=== PATIENT | male | born 1950 | race Caucasian/White ===

== ENCOUNTER 2019-10-15 05:45 | Outpatient (RCR) | payer MEDICARE, SELFPAY ==
[2019-10-14 11:00] LABS: Prostate Specific Antigen < 0.02 ng/mL (0-4)
[2019-10-14 11:30] LABS: Testosterone Total 21.7 ng/dL (193-740)
[2019-10-15] MEDS: goserelin acetate 10.8 mg Implant SUBCUT (14:17)
== END 2019-10-18 23:59 | disposition home or self-care (01) ==
LOC: ONCMED 05:45
PROVIDERS: Family Provider Family Medicine; PCP Family Medicine; Visit Provider Internal Medicine Hematology & Oncology
DX: C61 Malignant neoplasm of prostate (principal); F41.8 Other specified anxiety disorders; G47.00 Insomnia, unspecified; Z79.818 Long term (current) use of other agents affecting estrogen receptors and estrogen levels; Z79.82 Long term (current) use of aspirin; Z79.02 Long term (current) use of antithrombotics/antiplatelets; Z79.899 Other long term (current) drug therapy; Z90.79 Acquired absence of other genital organ(s); Z92.3 Personal history of irradiation
CPT/HCPCS: 84153; 84403; 96372; 96402; 99214; J9202

== ENCOUNTER → 2019-10-22 10:28 | Outpatient (BNVA) | payer MEDICARE, SELFPAY | PROVIDERS: Family Provider Family Medicine; PCP Family Medicine; Visit Provider Urology | DX: C61 Malignant neoplasm of prostate (principal); K92.1 Melena | CPT/HCPCS: 81001 ==

== ENCOUNTER → 2019-12-04 09:13 | Outpatient (BNVA) | payer MEDICARE, SELFPAY | PROVIDERS: Family Provider Family Medicine; PCP Family Medicine; Visit Provider Urology | DX: C61 Malignant neoplasm of prostate (principal); N32.81 Overactive bladder | CPT/HCPCS: 81001 ==

== ENCOUNTER 2020-01-15 07:57 | Outpatient (CLI) | payer MEDICARE, SELFPAY ==
[2020-01-14 16:11] LABS: Prostate Specific Antigen < 0.02 ng/mL (0-4)
[2020-01-14 16:12] LABS: Testosterone Total 23.3 ng/dL (193-740)
== END 2020-01-15 07:58 | disposition home or self-care (01) ==
LOC: ONCMED 07:58
PROVIDERS: Family Provider Family Medicine; PCP Family Medicine; Visit Provider Internal Medicine Hematology & Oncology
DX: C61 Malignant neoplasm of prostate (principal)
CPT/HCPCS: 84153; 84403

== ENCOUNTER 2020-01-17 08:29 | Outpatient (CLI) | payer MEDICARE, SELFPAY ==
[2020-01-17] MEDS: lidocaine 1% INJ 20 mL INJECTION (09:57)
[2020-01-17] MEDS: goserelin acetate 10.8 mg Implant IM (10:03)
--- NOTE | 2020-01-17 14:50 | ONC FU_ITS ---
Dr. Mckeon follow up note Patient: Tom Perales Unit #: [id number]: 1950 Dicatated By: Andrew Mckeon M.D.Date of Visit:January 17, 2020 Telehealth Progress Note The patient has been informed that the visit may not be secure and acknowledged the information. I have explained the option of participating in a telephone or video visit during the COVID-19 public health emergency to the patient. After being given an opportunity to ask questions about and discuss this type of visit, the patient verbally consented to proceeding with the telephone/video visit. the patient understands that this service replaces an office visit and they may be billed and /or responsible for any applicable copayments History of Present Illness: Mr. Perales is a 69-year-old gentleman who was recently diagnosed with prostate cancer. On 10/19/2018 he underwent TRUSP/biopsy, 12 cores were taken, 2 cores showed [place] score 4+3 with 100% involvement. The other showed [place] score 4+4. He had follow-up bone scan done on 10/31/2018 which shows no bone metastases. At that time patient was referred to radiation oncology Dr. Keyes. He was seen in October 2018 and offered radiation therapy. Mr Perales also consulted Dr. Woo, urologist in [place] for surgical consultation and finally decided to proceed with radical prostatectomy. It was performed on 12/17/2018. The final pathology report showed adenocarcinoma, [place] score 3+4, approximately 50% of prostate gland is involved, with positive surgical margin, extracapsular extension is seen, and left seminal vesicle was involved. A left pelvic lymph node was removed and showed no evidence of metastatic disease. Pathological stage, pT3 b, N0 Mx Patient tolerated procedure well and was referred back to Dr Mckeon for postsurgical radiation and hormonal therapy. Mr Perales was seen by Dr. Kumar who started him on Casodex 50 mg by mouth daily in December 2018. Dr Kumar referred him back to the cancer center for short-term therapy with Zoladex and possible radiation therapy. s/p combined radiation therapy/ADT with Zoladex/Casodex Casodex discontinued on 10/15/2019 Came for follow-up, denies any specific complaints except off and on hot flashes and somewhat muscle wasting and decreased libido. Otherwise tolerating Zoladex well. Medications: Aspirin EC 1 (81 mg) Tablet, enteric coated Oral daily, Chondroitin Sulfate 1 (150 mg) Capsule Oral daily, Cozaar 1 (50 mg) Tablet Oral daily, Fish Oil 1 (1200 mg) Capsule Oral b.i.d., HydroCHLOROthiazide 1 (12.5 mg) Tablet Oral daily PRN, L-Lysine 1 (500 mg) Tablet Oral daily, Multivitamin Adults 50+ 1 Tablet Oral daily, Norvasc 1 (10 mg) Tablet Oral daily, Tamsulosin HCl 1 (0.4 mg) Capsule Oral daily, VESIcare 1 Tablet (of 10 mg) Oral daily, Xarelto 1 Tablet (of 20 mg) Oral daily Allergies: Cipro Review of Systems: Constitutional - Appetite is good and weight is stable. No fever, chills. Pt reports that he is still having occasional hot flashes/night sweats, but that it is improving. Energy level is fair today., ENMT - No sinus congestion/drainage. No mouth sores. No sore throat or difficulty swallowing, Hematologic/Lymphatic - Pt reports easy bruising, Respiratory - No shortness of breath. No cough. No pleuritic pain or hemoptysis, Cardiovascular - No angina pain. Positive for occasional palpitations, Gastrointestinal - No nausea or vomiting. Positive for heartburn and acid reflux. Pt states he has diarrhea. No blood in the stool or black stools, Genitourinary (M) - No dysuria or hematuria. Positive for urinary frequency. Positive for urgency. Positive for incontinence, Musculoskeletal - Pt reports occasional back pain, Neurologic - No headache or dizziness. No numbness/paresthesias or other focal neurologic symptoms, Psychiatric - Positive for anxiety, depression and insomnia. Vital Signs: Performed on January 17, 2020 08:52 Height - 73.00 in Weight - 266.4 lbs (LOW) BSA - 2.43 sq.m BMI - 35.15 (HIGH) Temperature - 97.7 F (LOW) Pulse - 99 /min Respiration - 18 /min BP - 139/93 mm(hg) O2 Sat - 100 % Pain - 0 Performance Status: 0 - Fully active, able to carry on all predisease activities without restrictions. (ECOG) Physical Examination: ENMT - denies any mouth sores, Respiratory - Lungs are clear, Cardiovascular - Regular rate and rhythm of heart, Abdomen - bowel sounds present, nontender, Extremities - no visible edema. Lab/Imaging: Test performed on Oct 14, 2019 10:16 Testosterone, Total 21.7 ng/dL PSA < 0.02 ng/mL Impression: Adenocarcinoma prostate gland status post radical prostatectomy done on 12/17/2018 Final pathology report showed [place] score 7 (3+4), Grade 2, approximately 15% of prostate gland is involved. Next The right and left apical as well as the left posterior margins are involved Extracapsular extension is seen The left seminal vesicle is involved pT3b Left pelvic lymph node excision was done which showed no evidence of metastatic disease pN0 Bone scan done on 10/31/2018 showed no evidence of osseous metastatic disease. M0 pstage III discussed with patient his disease status and treatment options. He does have high risk, stage III disease, but otherwise healthy. Adjuvant therapy with post surgery radiation therapy and ADT in neoadjuvant /concurrent/ adjuvant . He was also started on Casodex per Dr Kumar in December 2018. Plan: Discussed with patient regarding his PSA which is less than 0.02 And testosterone level which is 23.3 Clinically, patient is doing well with no signs symptom suggestive of recurrence of disease. Tolerating 3 monthly Zoladex well but with expected side effects e.g. occasionally hot flashes, muscle wasting, decreased libido. Patient was advised to maintain physical activity level and try some muscle strengthing exercises. In the meantime we'll continue with Zoladex 10.8 mg today and every 3 months, return to clinic in 3 months with PSA Signed By: Andrew Mckeon M.D. <<Signature on File>>
== END 2020-01-17 08:30 | disposition home or self-care (01) ==
PROVIDERS: Family Provider Family Medicine; PCP Family Medicine; Visit Provider Internal Medicine Hematology & Oncology
DX: C61 Malignant neoplasm of prostate (principal); Z90.79 Acquired absence of other genital organ(s); Z79.818 Long term (current) use of other agents affecting estrogen receptors and estrogen levels
CPT/HCPCS: 96372; 96402; 99214; J2001; J9202

== ENCOUNTER 2020-02-20 07:30 | Day surgery (SDC) | payer MEDICARE, SELFPAY ==
[2020-02-18 12:05] VITALS: BMI 34.9
[2020-02-20 08:08] VITALS: BP 141/80; PULSE 88; RESP 18; TEMP 36.3; O2SAT 98
[2020-02-20] MEDS: sodium chloride 0.9% 1,000 ML 30 ML IV (08:21)
--- NOTE | 2020-02-20 08:33 | ANES.PREANE2 ---
Pre-Anesthetic Assessment Pre-Anesthetic Assessment: Height/Weight: Height 1.85 m Weight 120.202 kg Temp Pulse Resp BP Pulse Ox 97.4 F L 88 18 141/80 98 02/20/20 08:08 02/20/20 08:08 02/20/20 08:08 02/20/20 08:08 02/20/20 08:08 Preop Diagnosis: constipation Proposed Procedure: Operation Date: 02/20/20 09:35 Proposed Procedures p Colonoscopy 92401 K59.09(Not Applicable) - Jj Singletary MD Last intake: Intake Last Liquid Date 02/19/20 Last Liquid Time 20:00 Last Solid Date 02/18/20 Social: Social History: No alcohol and No tobacco Exam: Pre-Anes Outpt Exam: alert, oriented x 3, clear to auscultation bilaterally and regular rate & rhythm Airway: Submandibular: WNL Cervical ROM: WNL MP: 2 Dentition: Partials (upper) History/ROS: No significant history except as noted Pulmonary: Pulmonary: VICENTE CV/HEM: CV/HEM: CAD (stent 2006) and HTN : : None reported Hepatic: Hepatic: None reported GI: GI: GERD (occ) Metabolic: Metabolic: Hyperlipidemia and Morbid obesity Musc/skel: Musc/skel: OA/DJD Neuropsych: Neuropsych: None reported Anesthetic Plan: ASA status: 3 Anesthesia: Anesthesia Evaluation and MAC Risk of > 500 ml blood loss (7ml/kg in children): No Meds/Allergies Current Medications: Current Medications Generic Name Dose Route Start Last Admin Trade Name Freq PRN Reason Stop Dose Admin Sodium Chloride 1,000 mls @ 30 ml s/hr 02/20/20 07:45 02/20/20 08:21 Sodium Chloride 0.9% IV 30 mls/hr .Q24H GM Administration PFSH Anesthesia PFSH: Medical History Follicular lymphoma Prostate cancer Urgency incontinence Urgency-frequency syndrome Surgical History History of left inguinal hernia repair Hx of prostatectomy ROBOTIC Hx of sinus surgery Hx of vasectomy Status post colonoscopy Family History Father , AT AGE 63 Cancer Mother , AT AGE 91 CAD (coronary artery disease) Stroke Cancer Denies family history of Anesthesia complication Bleeding disorder Social History Smoking and tobacco status: never smoked Alcohol intake: never Adopted: No Caregiver/support person: No Lives independently: No Household members: spouse Marital status: Current occupational status: retired History of recent travel: No Data Anesthesia Cardiac Studies: No Data to Display
--- NOTE | 2020-02-20 11:03 | W.PM.OPSUD ---
Surgery/Procedure H&P Update DATE OF PROCEDURE: February 20, 2020 DATE H&P PERFORMED: 02/14/20 H&P UPDATE INFORMATION: I have reviewed H&P completed within last 30 days, I have examined patient prior to procedure and No changes to prior documentation PREOP DIAGNOSIS: constipation PLANNED PROCEDURE: Operation Date: 02/20/20 09:35 Proposed Procedures p Colonoscopy 12633 K59.09(Not Applicable) - Jj Singletary MD
[2020-02-20 11:43] VITALS: BP 134/78; PULSE 91; RESP 10; TEMP 36.1; O2SAT 97
[2020-02-20 12:00] VITALS: BP 123/70; PULSE 88; RESP 18; O2SAT 98
== END 2020-02-20 12:08 | disposition home or self-care (01) ==
PROVIDERS: PCP Family Medicine; Visit Provider Surgery
PROC: 0DJD8ZZ Inspection of Lower Intestinal Tract, Via Natural or Artificial Opening Endoscopic (ICD-10-PCS; CPT 45378; principal; 2020-02-20 09:35)
DX: K59.09 Other constipation (principal); I25.10 Atherosclerotic heart disease of native coronary artery without angina pectoris; Z95.5 Presence of coronary angioplasty implant and graft; I10 Essential (primary) hypertension; K21.9 Gastro-esophageal reflux disease without esophagitis; M19.90 Unspecified osteoarthritis, unspecified site; E78.5 Hyperlipidemia, unspecified
CPT/HCPCS: 12345; 45378; G0121; J7030

== ENCOUNTER 2020-04-22 10:05 | Outpatient (CLI) | payer MEDICARE, SELFPAY ==
[2020-04-22 21:04] LABS: Prostate Specific Antigen 0.006 ng/mL (0-4)
== END 2020-04-22 10:06 | disposition home or self-care (01) ==
LOC: ONCMED 13:36
PROVIDERS: PCP Family Medicine; Visit Provider Internal Medicine Hematology & Oncology
DX: C61 Malignant neoplasm of prostate (principal)
CPT/HCPCS: 36415; 84153

== ENCOUNTER 2020-04-23 12:17 | Outpatient (CLI) | payer MEDICARE, SELFPAY ==
[2020-04-23] MEDS: lidocaine 1% INJ 20 mL INJECTION (13:43)
[2020-04-23] MEDS: goserelin acetate 10.8 mg Implant IM (13:53)
--- NOTE | 2020-04-24 12:43 | ONC FU_ITS ---
Dr. Mckeon follow up note Patient: Tom Perales Unit #: [id number]: 1950 Dicatated By: Andrew Mckeon M.D.Date of Visit:Apr 23, 2020 Onc Med Follow-up/Prog Note History of Present Illness: Mr. Perales is a 70 -year-old gentleman who was recently diagnosed with prostate cancer. On 10/19/2018 he underwent TRUSP/biopsy, 12 cores were taken, 2 cores showed [place] score 4+3 with 100% involvement. The other showed Rosalina score 4+4. He had follow-up bone scan done on 10/31/2018 which shows no bone metastases. At that time patient was referred to radiation oncology Dr. Keyes. He was seen in October 2018 and offered radiation therapy. Mr Perales also consulted Dr. Woo, urologist in [place] for surgical consultation and finally decided to proceed with radical prostatectomy. It was performed on 12/17/2018. The final pathology report showed adenocarcinoma, [place] score 3+4, approximately 50% of prostate gland is involved, with positive surgical margin, extracapsular extension is seen, and left seminal vesicle was involved. A left pelvic lymph node was removed and showed no evidence of metastatic disease. Pathological stage, pT3 b, N0 Mx Patient tolerated procedure well and was referred back to Dr Mckeon for postsurgical radiation and hormonal therapy. Mr Perales was seen by Dr. Kumar who started him on Casodex 50 mg by mouth daily in December 2018. Dr Kumar referred him back to the cancer center for short-term therapy with Zoladex and possible radiation therapy. s/p combined radiation therapy/ADT with Zoladex/Casodex Casodex discontinued on 10/15/2019 Came for follow-up, denies any specific complaints, no fever chills, no nausea or vomiting, no diarrhea or constipation but occasionally hot flashes otherwise tolerating Zoladex well Medications: Aspirin EC 1 (81 mg) Tablet, enteric coated Oral daily, Chondroitin Sulfate 1 (150 mg) Capsule Oral daily, Cozaar 1 (50 mg) Tablet Oral daily, Fish Oil 1 (1200 mg) Capsule Oral b.i.d., HydroCHLOROthiazide 1 (12.5 mg) Tablet Oral daily PRN, L-Lysine 1 (500 mg) Tablet Oral daily, Multivitamin Adults 50+ 1 Tablet Oral daily, Norvasc 1 (10 mg) Tablet Oral daily, VESIcare 1 Tablet (of 10 mg) Oral daily, Xarelto 1 Tablet (of 20 mg) Oral daily Allergies: Cipro Review of Systems: Constitutional - Appetite is good and weight is stable. No fever, chills. Pt reports that he is still having occasional hot flashes/night sweats, but that it is improving. Energy level is fair today., ENMT - No sinus congestion/drainage. No mouth sores. No sore throat or difficulty swallowing, Hematologic/Lymphatic - Pt reports easy bruising, Respiratory - No shortness of breath. No cough. No pleuritic pain or hemoptysis, Cardiovascular - No angina pain. Positive for occasional palpitations, Gastrointestinal - No nausea or vomiting. Positive for heartburn and acid reflux. Pt states he has diarrhea. No blood in the stool or black stools, Genitourinary (M) - No dysuria or hematuria. Positive for urinary frequency. Positive for urgency. Positive for incontinence, Musculoskeletal - Pt reports occasional back pain, Neurologic - No headache or dizziness. No numbness/paresthesias or other focal neurologic symptoms, Psychiatric - Positive for anxiety, depression and insomnia. Vital Signs: Performed on Apr 23, 2020 13:02 Height - 73.00 in Weight - 270.8 lbs (HIGH) BSA - 2.45 sq.m BMI - 35.73 (HIGH) Temperature - 97.7 F (LOW) Pulse - 110 /min (HIGH) Respiration - 20 /min BP - 129/87 mm(hg) O2 Sat - 98 % Pain - 0 Performance Status: 0 - Fully active, able to carry on all predisease activities without restrictions. (ECOG) Physical Examination: ENMT - No mouth sores, no thrush, no jaundice, Respiratory - Lungs are clear, Cardiovascular - Regular rate and rhythm of heart, Abdomen - Soft, bowel sounds present, Extremities - No visible edema. Lab/Imaging: Test performed on Jan 14, 2020 07:40 Testosterone, Total 23.3 ng/dL PSA < 0.02 ng/mL Impression: Adenocarcinoma prostate gland status post radical prostatectomy done on 12/17/2018 Final pathology report showed Ros[place] score 7 (3+4), Grade 2, approximately 15% of prostate gland is involved. Next The right and left apical as well as the left posterior margins are involved Extracapsular extension is seen The left seminal vesicle is involved pT3b Left pelvic lymph node excision was done which showed no evidence of metastatic disease pN0 Bone scan done on 10/31/2018 showed no evidence of osseous metastatic disease. M0 pstage III discussed with patient his disease status and treatment options. He does have high risk, stage III disease, but otherwise healthy. Adjuvant therapy with post surgery radiation therapy and ADT in neoadjuvant /concurrent/ adjuvant . He was also started on Casodex per Dr Kumar in December 2018. Plan: Discussed with patient regarding his labs PSA is 0.006 Clinically, patient doing well with no signs symptom suggestive of recurrence of disease, PSA still subzero, and is tolerating 3 monthly Zoladex well. We will proceed with next 3 monthly dose today and then return to clinic in 3 months. PSA and for Zoladex Signed By: Andrew Mckeon M.D. <<Signature on File>>
== END 2020-04-23 12:18 | disposition home or self-care (01) ==
LOC: ONCMED 12:19
PROVIDERS: PCP Family Medicine; Visit Provider Internal Medicine Hematology & Oncology
DX: C61 Malignant neoplasm of prostate (principal); I10 Essential (primary) hypertension; I25.10 Atherosclerotic heart disease of native coronary artery without angina pectoris; M35.3 Polymyalgia rheumatica; N41.1 Chronic prostatitis; Z79.818 Long term (current) use of other agents affecting estrogen receptors and estrogen levels
CPT/HCPCS: 96372; 96402; 99214; J9202

== ENCOUNTER 2020-05-19 07:53 | Outpatient (CLI) | payer MEDICARE, SELFPAY ==
--- NOTE | 2020-05-19 08:04 | XR_ITS ---
WS: [id number] KNEE RIGHT TECHNIQUE: 2 views of the right knee CLINICAL INFORMATION: EFFUSION RIGHT KNEE COMPARISON: None. FINDINGS: Normal anatomic alignment. No acute fractures. Hypertrophic patella. Small suprapatellar effusion. Va scular calcification. XR/XR knee RT 1-2V 84716 IMPRESSION: 1. Small suprapatellar effusion. No acute fractures. 2. Hypertrophic patella.
== END 2020-05-19 07:54 | disposition home or self-care (01) ==
LOC: RADWPI 07:57
PROVIDERS: Family Provider Family Medicine; PCP Family Medicine; Visit Provider Nurse Practitioner Family
DX: M25.461 Effusion, right knee (principal)
CPT/HCPCS: 73560

== ENCOUNTER 2020-06-16 07:42 | Outpatient (CLI) | payer MEDICARE, SELFPAY ==
--- NOTE | 2020-06-16 09:19 | ONC FU_ITS ---
Dr. Mckeon follow up note Patient: Tom Perales Unit #: [id number]: 1950 Dicatated By: Andrew Mckeon M.D.Date of Visit:Jun 16, 2020 Onc Med Follow-up/Prog Note History of Present Illness: Mr. Perales is a 70 -year-old gentleman who was recently diagnosed with prostate cancer. On 10/19/2018 he underwent TRUSP/biopsy, 12 cores were taken, 2 cores showed [place] score 4+3 with 100% involvement. The other showed Rosalina score 4+4. He had follow-up bone scan done on 10/31/2018 which shows no bone metastases. At that time patient was referred to radiation oncology Dr. Keyes. He was seen in October 2018 and offered radiation therapy. Mr Perales also consulted Dr. Woo, urologist in [place] for surgical consultation and finally decided to proceed with radical prostatectomy. It was performed on 12/17/2018. The final pathology report showed adenocarcinoma, [place] score 3+4, approximately 50% of prostate gland is involved, with positive surgical margin, extracapsular extension is seen, and left seminal vesicle was involved. A left pelvic lymph node was removed and showed no evidence of metastatic disease. Pathological stage, pT3 b, N0 Mx Patient tolerated procedure well and was referred back to Dr Mckeon for postsurgical radiation and hormonal therapy. Mr Perales was seen by Dr. Kumar who started him on Casodex 50 mg by mouth daily in December 2018. Dr Kumar referred him back to the cancer center for short-term therapy with Zoladex and possible radiation therapy. s/p combined radiation therapy/ADT with Zoladex/Casodex Casodex discontinued on 10/15/2019 Came for follow-up, complaining of bilateral knee pain and some puffiness, patient has chronic knee problem, and has been taking [id number] alternative supplements as per patient initially he had puffiness in left knee later on it resolved on his own and then switched to right knee for which he had x-ray done on May 19, 2020 which showed a small suprapatellar effusion, no acute fracture. Patient was seen by PMD earlier, now patient had a concern whether this puffiness is related to treatment or his prostate cancer. Medications: Aspirin EC 1 (81 mg) Tablet, enteric coated Oral daily, Chondroitin Sulfate 1 (150 mg) Capsule Oral daily, Cozaar 1 (50 mg) Tablet Oral daily, Fish Oil 1 (1200 mg) Capsule Oral b.i.d., HydroCHLOROthiazide 1 (12.5 mg) Tablet Oral daily PRN, L-Lysine 1 (500 mg) Tablet Oral daily, Multivitamin Adults 50+ 1 Tablet Oral daily, Norvasc 1 (10 mg) Tablet Oral daily, Xarelto 1 Tablet (of 20 mg) Oral daily Allergies: Cipro Review of Systems: Constitutional - Appetite is good and weight is stable. No fever, chills. Pt reports that he is still having occasional hot flashes/night sweats, but that it is improving. Energy level is fair today., ENMT - No sinus congestion/drainage. No mouth sores. No sore throat or difficulty swallowing, Hematologic/Lymphatic - Pt reports easy bruising, Respiratory - No shortness of breath. No cough. No pleuritic pain or hemoptysis, Cardiovascular - No angina pain. Positive for occasional palpitations, Gastrointestinal - No nausea or vomiting. Positive for heartburn and acid reflux. Pt states he has diarrhea. No blood in the stool or black stools, Genitourinary (M) - No dysuria or hematuria. Positive for urinary frequency. Positive for urgency. Positive for incontinence, Musculoskeletal - Pt reports significant knee pain, Neurologic - No headache or dizziness. No numbness/paresthesias or other focal neurologic symptoms, Psychiatric - Positive for anxiety, depression and insomnia. Vital Signs: Performed on Jun 16, 2020 08:21 Height - 73.00 in Weight - 276.6 lbs (HIGH) BSA - 2.47 sq.m BMI - 36.49 (HIGH) Temperature - 97.2 F (LOW) Pulse - 110 /min (HIGH) Respiration - 20 /min BP - 143/102 mm(hg) (HIGH) O2 Sat - 99 % Pain - 9 Performance Status: 1 - No physically strenuous activity, but ambulatory and able to carry out light or sedentary work (e.g. office work, light house work). (ECOG) Physical Examination: ENMT - No mouth sores, no thrush, no, Respiratory - Lungs are clear, Cardiovascular - Regular rate and rhythm of heart , Abdomen - Soft, bowel sounds present, Extremities - Mild puffiness in the anterior part of right knee but no overlying skin changes. Lab/Imaging: Test performed on Jan 14, 2020 07:40 Testosterone, Total 23.3 ng/dL PSA < 0.02 ng/mL Impression: Adenocarcinoma prostate gland status post radical prostatectomy done on 12/17/2018 Final pathology report showed [place] score 7 (3+4), Grade 2, approximately 15% of prostate gland is involved. Next The right and left apical as well as the left posterior margins are involved Extracapsular extension is seen The left seminal vesicle is involved pT3b Left pelvic lymph node excision was done which showed no evidence of metastatic disease pN0 Bone scan done on 10/31/2018 showed no evidence of osseous metastatic disease. M0 pstage III discussed with patient his disease status and treatment options. He does have high risk, stage III disease, but otherwise healthy. Adjuvant therapy with post surgery radiation therapy and ADT in neoadjuvant /concurrent/ adjuvant . He was also started on Casodex per Dr Kumar in December 2018. And was discontinued on October 15, 2019 Plan: Discussed with patient regarding his bilateral knee problem and right knee x-ray which was ordered by his PMD and showed small suprapatellar effusion and patient was showed that it is very unlikely due to androgen deprivation therapy or with a normal PSA and no other symptom and shifting pain make it unlikely due to prostate cancer either, his pain could be due to progressive osteoarthritis considering his body weight and history of bilateral knee issues in the past or due to damage to the cartilage or ligament, at this point will refer him to orthopedics for evaluation. In the meantime, we will continue to follow him from oncology point of view and he will return to clinic as scheduled Signed By: Andrew Mckeon M.D. <<Signature on File>>
== END 2020-06-16 07:43 | disposition home or self-care (01) ==
LOC: ONCMED 07:44
PROVIDERS: Visit Provider Internal Medicine Hematology & Oncology
DX: C61 Malignant neoplasm of prostate (principal); M25.561 Pain in right knee; M25.461 Effusion, right knee; M25.562 Pain in left knee; Z79.818 Long term (current) use of other agents affecting estrogen receptors and estrogen levels; Z92.3 Personal history of irradiation; Z92.21 Personal history of antineoplastic chemotherapy
CPT/HCPCS: 99214

== ENCOUNTER → 2020-06-17 09:36 | Outpatient (BNVA) | payer MEDICARE, SELFPAY | PROVIDERS: Visit Provider Urology | DX: N32.81 Overactive bladder (principal); C61 Malignant neoplasm of prostate | CPT/HCPCS: 81001 ==

== ENCOUNTER → 2020-07-20 07:34 | Outpatient (BNVA) | payer MEDICARE, SELFPAY | PROVIDERS: Visit Provider Nurse Practitioner Family | DX: Z11.59 Encounter for screening for other viral diseases (principal) | CPT/HCPCS: 87635 ==

== ENCOUNTER 2020-07-22 08:05 | Outpatient (CLI) | payer MEDICARE, SELFPAY ==
[2020-07-22 14:36] LABS: Prostate Specific Antigen 0.006 ng/mL (0-4)
== END 2020-07-22 08:06 | disposition home or self-care (01) ==
LOC: ONCMED 16:53
PROVIDERS: Visit Provider Internal Medicine Hematology & Oncology
DX: C61 Malignant neoplasm of prostate (principal)
CPT/HCPCS: 84153

== ENCOUNTER 2020-08-22 05:48 | Emergency (ER) | payer MEDICARE, SELFPAY ==
[2020-08-22] VITALS (9 sets, daily range): BP systolic 113–138; BP diastolic 78–97; PULSE 81–121; RESP 15–21; TEMP 36.5; O2SAT 92–99; BMI 34.2
--- NOTE | 2020-08-22 06:20 | PC.NURSE ---
Nurse at bedside placing IV line and drawing blood work.
--- NOTE | 2020-08-22 06:31 | XRR_ITS ---
PROCEDURE INFORMATION: Exam: XR Chest, 1 View Exam date and time: 08/22/2020 7:46 AM Age: 70 years old Clinical indication: Cough and dyspnea; Additional info: Dyspnea/cough TECHNIQUE: Imaging protocol: XR of the chest Views: 1 view. COMPARISON: CR Chest 1 [place] [id number] 06/11/2018 2:17 PM FINDINGS: Lungs: Unremarkable. No consolidation. Pleural space: Unremarkable. No pleural effusion. No pneumothorax. Heart/Mediastinum: The cardiac silhouette is enlarged. There is calcification of the aortic arch. Bones/joints: Unremarkable. XR/XR chest 1V portable [id number] IMPRESSION: Enlargement of the cardiac silhouette. No acute abnormality.
--- NOTE | 2020-08-22 06:32 | ECG_ITS ---
[facility] Test Date: 2020-08-22 Pat Name: Tom Perales Department: Room: Gender: Male [employer] Operator: : [id number] Requested By: Roberto Foley Order Number: [id number] Reading MD: RICK VIGIL Measurements Intervals Kaycee Rate: 79 P: CO: QRS: 52 QRSD: 118 T: 27 QT: 408 QTc: 470 Interpretive Statements ATRIAL FIBRILLATION MODERATE INTRAVENTRICULAR CONDUCTION DELAY [110+ ms QRS DURATION] ABNORMAL RHYTHM ECG Compared to ECG 08/22/2020 06:15:56 Intraventricular conduction delay now present Electronically Signed On 08-22-2020 17:26:54 [employer] by RICK VIGIL [id number]
--- NOTE | 2020-08-22 06:33 | W.ED.ARRPALP ---
HPI - Arrhythmia/Palpitations General: Chief Complaint: COVID symptoms Stated Complaint: covid+ 07/22, still dealing w/symptoms/abd swelling Time Seen by Provider: 08/22/20 05:59 History of Present Illness: HPI narrative: 70-year-old male presents emergency room complaining of just generally not feeling well he states he feels bloated just does not feel himself. He states this is gone on since he was diagnosed in early July with Covid. He is on Xarelto for atrial fibrillation. He denies any chest pain he has had some rapid heart rate and palpitations. He is not had any productive cough. He has noted some swelling in his feet. He denies any chest pain no orthopnea. Denies any recent change in his medications. He did take an unknown medication that some family from [place] shipped to him last month when he had Covid. He does have a known history of atrial fibrillation. MD complaint: rapid heart beat, skipped beats , palpitations, irregular heart beat and atrial fibrillation Associated symptoms: Reports cough, nausea and short of breath; Deny anxiety, diaphoresis, muscle cramps, paresthesias, pre-syncope, sense of impending doom, syncope or other Review of Systems Const: Denies: diaphoresis ENMT: Denies: throat pain, ear or mastoid pain, nasal discharge or nasal congestion Card: Denies: syncope or pre-syncope Resp: Denies: dyspnea, productive cough or non-productive cough GI: Reports: nausea : Denies: flank pain, dysuria, urinary frequency or urinary urgency Musc: Denies: muscle cramps Skin/Breast: Denies: rash or pruritus Psych: Denies: anxiety PFSH ED PFSH: Medical History Follicular lymphoma Osteoarthritis involving multiple joints on both sides of body Prostate cancer Urgency incontinence Urgency-frequency syndrome Surgical History History of left inguinal hernia repair Hx of prostatectomy ROBOTIC Hx of sinus surgery Hx of vasectomy Status post colonoscopy (02/20/20) normal - repeat 5 years , poor prep Family History Father , AT AGE 63 Cancer Mother , AT AGE 91 CAD (coronary artery disease) Stroke Cancer Denies family history of Anesthesia complication Bleeding disorder Social History Smoking and tobacco status: never smoked Alcohol intake: never Adopted: No Caregiver/support person: No Lives independently: No Household members: spouse Marital status: Current occupational status: retired History of recent travel: No Physical Exam Const: COMMON NORMALS: no acute distress GENERAL APPEARANCE: cooperative and comfortable ORIENTATION/CONSCIOUSNESS: Yes awake, Yes oriented to person, Yes oriented to place and Yes oriented to time HENMT: COMMON NORMALS: normocephalic, atraumatic and hearing grossly normal bilaterally HEAD & SCALP: normocephalic and atraumatic Neck/C-Spine: COMMON NORMALS: no JVD Resp: COMMON NORMALS: normal respiratory effort, No retractions, No use of accessory muscles and clear to auscultation bilaterally AUSCULTATION: clear to auscultation bilaterally Cardio: COMMON NORMALS: no JVD and No murmurs present (Cardio) RATE: tachycardic RHYTHM: abnormal rhythm irregularly irregular GI: COMMON NORMALS: Soft to palpation and No hepatosplenomegaly present AUSCULTATION: Yes normoactive bowel sounds PALPATION: Yes Soft to palpation, No Tenderness to palpation present (GI), No Guarding due to palpation present (GI) and Yes No hepatosplenomegaly present Extremity: COMMON NORMALS: normal to inspection, capillary refill normal, no clubbing, cyanosis or edema, no calf tenderness and no pedal edema Neuro: SENSORIUM/ORIENTATION: Yes oriented to person, Yes oriented to place and Yes oriented to time Skin: COMMON NORMALS: no rashes or lesions noted GENERAL SKIN EXAM: no rashes or lesions noted Course Vital Signs: Vital signs: Vital Signs Temperature 97.7 F 08/22/20 06:00 Pulse Rate 92 08/22/20 10:00 Respiratory Rate 21 H 08/22/20 10:00 Blood Pressure 116/83 08/22/20 10:00 Pulse Oximetry 97 08/22/20 10:00 MDM - Arrhythmia/Palpitations MDM Narrative: Medical decision making narrative: Rate improved after Toprol. He is in A. fib with rate poorly controlled when he first arrived. [place] tye is known and is already on Xarelto. We will decrease his Norvasc add Toprol-XL have him follow-up next week with his regular doctor. Lab Data: Labs: Lab Results 08/22/20 08/22/20 08/22/20 Range/Units 06:44 06:44 06:44 WBC 8.2 (4.0-10.0) 10^3/ uL RBC 3.93 L (4.1-5.3) 10^6/u L Hgb 10.4 L (11.7-16.6) g/dL Hct 32.9 L (42.0-52.0) % MCV 83.7 (80-94) fL MCH 26.5 L (28.0-34.0) pg MCHC 31.6 (30.0-36.0) g/dL RDW 15.4 H (12.1-15.1) % Plt Count 274 (130-400) 10^3/c mm MPV 11.3 H (7.4-10.4) fL Neut % (Auto) 77.3 % Lymph % (Auto) 14.0 % [place]ila % (Auto) 7.5 % Eos % (Auto) 0.7 % Baso % (Auto) 0.1 % Neut # (Auto) 6.31 (1.8-7.7) 10^3/u L Lymph # (Auto) 1.1 (0.8-4.8) 10^3/u L [place] # (Auto) 0.6 (0.2-0.9) 10^3/u L Eos # (Auto) 0.1 (0.0-0.8) 10^3/u L Baso # (Auto) 0.0 (0.0-0.1) 10^3/u L Nucleated RBC % (a uto) 0 % Nucleated RBCs # 0.0 /100WBC Sodium 141 (136-145) mmol/L Potassium 4.1 (3.5-5.1) mmol/L Chloride 104 (98-107) mmol/L Carbon Dioxide 26 (22-29) mmol/L Anion Gap 15.1 (5-19) BUN 23 (8-23) mg/dL Creatinine 0.9 (0.7-1.2) mg/dL GFR Calculation 83.4 L (90-130) mL/min Glucose 112 (65-115) mg/dL Calculated Osmolal ity 296 H (285-295) mOsm/k g Calcium 9.2 (8.5-10.5) mg/dL Total Bilirubin 0.4 (0.15-1.2) mg/dL AST 26 (0-40) U/L ALT 24 (0-41) U/L Alkaline Phosphata se 107 (40-130) IU/L Troponin T Baselin e 10 (0-15) ng/L Troponin T 120 Min [place] (0-15) ng/L Delta Troponin T (0-10) ABS# NT-Pro-B Natriuret Pep 2945 H (0-125) pg/mL Total Protein 6.2 L (6.6-8.7) g/dL Albumin 4.1 (3.5-5.2) g/dL Globulin 2.1 (1.3-4.6) g/dL Urine Color (Yellow) Urine Appearance (CLEAR) Urine pH (5-7) Ur Specific Gravit y (1.005-1.030) Urine Protein (Negative) Urine Glucose (UA) (Normal) Urine Ketones (Negative) Urine Blood (Negative) Urine Nitrate (Negative) Urine Bilirubin (Negative) Urine Urobilinogen (Negative) mg/dL Ur Leukocyte Idalmis ase (Negative) 08/22/20 08/22/20 Range/Units 06:52 08:50 WBC (4.0-10.0) 10^3/ uL RBC (4.1-5.3) 10^6/u L Hgb (11.7-16.6) g/dL Hct (42.0-52.0) % MCV (80-94) fL MCH (28.0-34.0) pg MCHC (30.0-36.0) g/dL RDW (12.1-15.1) % Plt Count (130-400) 10^3/c mm MPV (7.4-10.4) fL Neut % (Auto) % Lymph % (Auto) % [place] % (Auto) % Eos % (Auto) % Baso % (Auto) % Neut # (Auto) (1.8-7.7) 10^3/u L Lymph # (Auto) (0.8-4.8) 10^3/u L [place] # (Auto) (0.2-0.9) 10^3/u L Eos # (Auto) (0.0-0.8) 10^3/u L Baso # (Auto) (0.0-0.1) 10^3/u L Nucleated RBC % (a uto) % Nucleated RBCs # /100WBC Sodium (136-145) mmol/L Potassium (3.5-5.1) mmol/L Chloride (98-107) mmol/L Carbon Dioxide (22-29) mmol/L Anion Gap (5-19) BUN (8-23) mg/dL Creatinine (0.7-1.2) mg/dL GFR Calculation (90-130) mL/min Glucose (65-115) mg/dL Calculated Osmolal ity (285-295) mOsm/k g Calcium (8.5-10.5) mg/dL Total Bilirubin (0.15-1.2) mg/dL AST (0-40) U/L ALT (0-41) U/L Alkaline Phosphata se (40-130) IU/L Troponin T Baselin e (0-15) ng/L Troponin T 120 Min [place] 10.31 (0-15) ng/L Delta Troponin T 0.31 (0-10) ABS# NT-Pro-B Natriuret Pep (0-125) pg/mL Total Protein (6.6-8.7) g/dL Albumin (3.5-5.2) g/dL Globulin (1.3-4.6) g/dL Urine Color Yellow (Yellow) Urine Appearance Clear (CLEAR) Urine pH 7 (5-7) Ur Specific Gravit y 1.010 (1.005-1.030) Urine Protein Neg (Negative) Urine Glucose (UA) Norm (Normal) Urine Ketones Negative (Negative) Urine Blood Neg (Negative) Urine Nitrate Negative (Negative) Urine Bilirubin Neg (Negative) Urine Urobilinogen Norm (Negative) mg/dL Ur Leukocyte Idalmis ase Negative (Negative) Discharge Plan Discharge Patient Disposition: Home Clinical Impression: Atrial fibrillation Condition: Stable Prescriptions: New Toprol XL 50 mg tablet extended release 24 hr 50 mg PO DAILY Qty: 30 RF: 0 Changed Norvasc 10 mg tablet 5 mg PO DAILY Qty: 0 RF: 0 No Action losartan [Cozaar] 50 mg tablet 50 mg PO DAILY RF: 0 aspirin [Adult Low Dose Aspirin] 81 mg tablet,delayed release (DR/EC) 81 mg PO DAILY RF: 0 omega-3 fatty acids [Fish Oil Concentrate] 1,000 mg capsule 1,000 mg PO DAILY RF: 0 glucosamine-chondroitin 900 mg tablet 900 mg PO DAILY RF: 0 Zoladex 10.8 mg implant 10.8 mg SUBCUT DIRECTED RF: 0 bicalutamide 50 mg tablet 50 mg PO DAILY RF: 0 turmeric 400 mg capsule PO DAILY RF: 0 Myrbetriq 25 mg tablet extended release 24 hr 25 mg PO Q24H Qty: 30 RF: 12 meloxicam 15 mg tablet 15 mg PO DAILY Qty: 90 RF: 1 cholecalciferol (vitamin D3) 125 mcg (5,000 unit) capsule 125 mcg PO DAILY RF: 0 multivitamin Tablet 1 tab PO DAILY RF: 0 Xarelto 20 mg tablet 20 mg PO DAILY RF: 0 Discharge Orders: Discharge ED (Routine); Ordered 08/22/20 Ordered By: Roberto Fields Discharge Diet: Usual diet Discharge Activity: Increase activity as tolerated Activity Restrictions/Additional Instructions: Aloe up with your primary care doctor in the next 5 days to recheck blood pressure and heart rate. Coding Level of Care Code ED Drying Unit Felting Machine Operator for Mickie Fwd Exam Comprehensive
[2020-08-22 07:01] LABS: Add Urine Microscopic? NO
[2020-08-22 07:03] LABS: Basophils % 0.1 %; Eosinophils # 0.1 10^3/uL (0.0-0.8); Eosinophils % 0.7 %; Hematocrit 32.9 % (42.0-52.0); Hemoglobin 10.4 g/dL (11.7-16.6); Lymphocytes # 1.1 10^3/uL (0.8-4.8); Mean Corpuscular HGB Conc 31.6 g/dL (30.0-36.0); Mean Corpuscular Hemoglobin 26.5 pg (28.0-34.0); Mean Corpuscular Volume 83.7 fL (80-94); Mean Platelet Volume 11.3 fL (7.4-10.4); Monocytes # 0.6 10^3/uL (0.2-0.9); Monocytes % 7.5 %; Neutrophils # 6.31 10^3/uL (1.8-7.7); Neutrophils % 77.3 %; Nucleated Red Blood Cells % 0 %; Platelet Count 274 10^3/cmm (130-400); Red Blood Count 3.93 10^6/uL (4.1-5.3); Red Cell Distribution Width 15.4 % (12.1-15.1); White Blood Count 8.2 10^3/uL (4.0-10.0)
[2020-08-22] MEDS: metoprolol tartrate 1 mg/1 mL SDV 5 mL 5 MG IV (07:05)
[2020-08-22] MEDS: metoprolol tartrate 50 mg Tablet PO (07:05)
[2020-08-22 07:15] LABS: Bilirubin Urine Neg (Negative); Blood Urine Neg (Negative); Glucose Urine UA Norm (Normal); Ketones Urine Negative (Negative); Leukocyte Esterase Urine Negative (Negative); Nitrate Urine Negative (Negative); Protein Urine Neg (Negative); Urine Appearance Clear (CLEAR); Urine Color Yellow (Yellow); Urobilinogen Urine Norm (Negative); pH Urine 7 (5-7)
[2020-08-22 07:34] LABS: Troponin(5th) Baseline 10 ng/L (0-15)
[2020-08-22 07:41] LABS: Alanine Aminotransferase 24 U/L (0-41); Albumin Level 4.1 g/dL (3.5-5.2); Alkaline Phosphatase 107 IU/L (40-130); Anion Gap 15.1 (5-19); Aspartate Amino Transferase 26 U/L (0-40); Blood Urea Nitrogen 23 mg/dL (8-23); Calcium 9.2 mg/dL (8.5-10.5); Carbon Dioxide 26 mmol/L (22-29); Chloride 104 mmol/L (98-107); Creatinine Clr Calc Pharmacy 102.7462; Globulin 2.1 g/dL (1.3-4.6); Glomerular Filtration Rate 83.4 mL/min (90-130); Glucose 112 mg/dL (65-115); NT Pro B Type Natriuretic Pept 2945 pg/mL (0-125); Osmolality Calculated 296 mOsm/kg (285-295); Potassium 4.1 mmol/L (3.5-5.1); Sodium 141 mmol/L (136-145); Total Bilirubin 0.4 mg/dL (0.15-1.2); Total Protein 6.2 g/dL (6.6-8.7)
[2020-08-22 10:28] LABS: Troponin 5 2HR 10.31 ng/L (0-15); Troponin 5 2HR Delta 0.31 ABS# (0-10)
--- NOTE | 2020-08-22 12:32 | ECG_ITS ---
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1950 Requested By: Roberto Foley Order Number: [id number] Daniel MD: RICK VIGIL Measurements Intervals [place] Rate: 108 P: [place]: QRS: 112 QRSD: 113 T: 26 QT: 383 QTc: 515 Interpretive Statements ATRIAL FIBRILLATION WITH RAPID VENTRICULAR RESPONSE POSSIBLE RIGHT VENTRICULAR HYPERTROPHY [SOME/ALL OF: PROMINENT R IN V1, LATE TRANSITION, RAD, DINH, SSS] Compared to ECG 06/11/2018 14:27:53 Sinus rhythm no longer present Electronically Signed On 08-22-2020 17:28:07 SENIOR CLINICAL DATA MANAGER by RICK VIGIL [id number]
== END 2020-08-22 11:19 | disposition home or self-care (01) ==
PROVIDERS: Emergency Provider Family Medicine
DX: I48.91 Unspecified atrial fibrillation (principal); Z79.82 Long term (current) use of aspirin; Z85.46 Personal history of malignant neoplasm of prostate
CPT/HCPCS: 12345; 71045; 80053; 81003; 83880; 84484; 85025; 93005; 96374; 99283; J3490

== ENCOUNTER → 2020-09-07 11:00 | Outpatient (BNVA) | payer MEDICARE, SELFPAY | PROVIDERS: Visit Provider Emergency Medicine | DX: R60.9 Edema, unspecified (principal); I10 Essential (primary) hypertension; I48.91 Unspecified atrial fibrillation | CPT/HCPCS: 83880 ==

== ENCOUNTER 2020-09-15 01:49 | Emergency (ER) | payer MEDICARE, SELFPAY ==
[2020-09-15 01:56] VITALS: BP 133/101; PULSE 95; RESP 22; TEMP 36.6; O2SAT 97; BMI 36.8
--- NOTE | 2020-09-15 01:58 | XR_ITS ---
WS: [id number] Exam: XR chest 1V portable [id number] Date/Time of Exam: 09/15/2020 2:28 AM Reason For Exam: sob Comparison 08/22/2020. The heart is enlarged but unchanged in size. The lungs are clear and fully expanded. No pleural effus ions. The mediastinum and bony thorax are unremarkable. XR/XR chest 1V portable [id number] IMPRESSION: 1. Mild cardiac enlargement unchanged. No acute process.
--- NOTE | 2020-09-15 01:58 | ECG_ITS ---
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 Measurements Intervals [place] Rate: 93 P: [place]: QRS: 85 QRSD: 98 T: 208 QT: 391 QTc: 487 Interpretive Statements ATRIAL FIBRILLATION MODERATE T-WAVE ABNORMALITY, CONSIDER LATERAL ISCHEMIA [-0.1+ mV T WAVE IN I/aVL/V5/V6] Compared to ECG 08/22/2020 09:02:50 T-wave abnormality now present Possible ischemia now present Intraventricular conduction delay no longer present Electronically Signed On 09-15-2020 23:45:53 POSTPARTUM NURSE by Janene Gorman M.D. [email or web address]/[id number]
[2020-09-15] MEDS: FUROsemide 10 mg/mL SDV 4mL 40 MG IVP (02:04)
[2020-09-15 02:12] VITALS: BP 129/88; PULSE 97; O2SAT 97
--- NOTE | 2020-09-15 02:21 | W.ED.SOB ---
HPI - SOB/Dyspnea General: Chief Complaint: Shortness of Breath/Dyspnea Stated Complaint: SOB Time Seen by Provider: 09/15/20 01:51 Source: patient and EMS Mode of arrival: EMS Limitations: no limitations History of Present Illness: HPI Narrative: Tom is a 70-year-old male states been having increased lower extremity edema over the last week along with shortness of breath. He states shortness of breath got worse tonight. He saw his PCP a few days ago and was prescribed Lasix and has not filled the prescription. Patient here is 96% on room air. He has had no cough or fever. He had Covid 1 month ago. Denies any worsening improving factors. MD elicited complaint: shortness of breath Associated symptoms: Deny abdominal pain, chest pain, fever(s), nausea or vomiting Review of Systems Const: Denies: fever(s), chills, body aches or change in appetite Eyes: Denies: blurry vision or eye discomfort ENMT: Denies: throat pain or dental pain Card: Denies: chest pain Resp: Reports: dyspnea GI: Denies: abdominal pain, nausea, vomiting or diarrhea : Denies: dysuria Musc: Reports: extremity swelling Skin/Breast: Denies: rash Neuro: Denies: headache(s) Psych: Denies: depression Cesar/Lymph: Denies: easy bruising All/Imm: Denies: urticaria PFSH ED PFSH: Medical History Chronic kidney disease (CKD) stage G2/A1, mildly decreased glomerular filtration rate (GFR) between 60-89 mL/min/1.73 square meter and albuminuria creatinine ratio less than 30 mg/g Follicular lymphoma Osteoarthritis involving multiple joints on both sides of body Prostate cancer Urgency incontinence Urgency-frequency syndrome Surgical History History of left inguinal hernia repair Hx of prostatectomy ROBOTIC Hx of sinus surgery Hx of vasectomy Status post colonoscopy (02/20/20) normal - repeat 5 years , poor prep Family History Father , AT AGE 63 Cancer Mother , AT AGE 91 CAD (coronary artery disease) Stroke Cancer Denies family history of Anesthesia complication Bleeding disorder Social History Smoking and tobacco status: never smoked Alcohol intake: never Adopted: No Caregiver/support person: No Lives independently: No Household members: spouse Marital status: Current occupational status: retired History of recent travel: No Physical Exam Const: COMMON NORMALS: no acute distress, patient oriented x3 and healthy appearing HENMT: COMMON NORMALS: normocephalic and atraumatic HEAD & SCALP: normocephalic and atraumatic Eye: COMMON NORMALS: Equal, round and reactive pupils present and EOMs intact bilaterally PUPIL: Yes Equal, round and reactive pupils present Neck/C-Spine: COMMON NORMALS: full ROM and supple Chest: COMMONS NORMALS: normal inspection of the chest and normal palpation of entire chest wall Resp: COMMON NORMALS: normal respiratory effort, No retractions, No use of accessory muscles and clear to auscultation bilaterally AUSCULTATION: clear to auscultation bilaterally Cardio: COMMON NORMALS: regular rate, regular rhythm and No murmurs present (Cardio) RATE: regular rate RHYTHM: regular rhythm GI: COMMON NORMALS: Normal to inspection, nondistended, normoactive bowel sounds present, Soft to palpation, non-tender and no masses PALPATION: Yes Soft to palpation Extremity: COMMON NORMALS: full ROM NARRATIVE EXTREMITY EXAM: 2+edema Neuro: COMMON NORMALS: patient oriented x3, moves all extremities and no focal motor deficits Psych: COMMON NORMALS: mental status grossly normal, Normal thought process present and cooperative THOUGHT PROCESS: Normal thought process present Skin: COMMON NORMALS: no rashes or lesions noted and no wounds GENERAL SKIN EXAM: no rashes or lesions noted Course Vital Signs: Vital signs: Vital Signs Temperature 97.8 F 09/15/20 01:56 Pulse Rate 94 09/15/20 04:13 Respiratory Rate 21 H 09/15/20 04:13 Blood Pressure 121/98 09/15/20 04:13 Pulse Oximetry 98 09/15/20 04:13 MDM - SOB/Dyspnea MDM Narrative: Medical decision making narrative: Tom presents for shortness of breath likely from his congestive heart failure. CT did show pleural effusions and possible pneumonia. We will start him on doxycycline and he is to start his Lasix that was prescribed. Patient has not required any oxygen here and has been well-appearing here he is stable for discharge and is to follow-up his PCP in 3 to 5 days return to ER if worsening. He understands and agrees to plan. Lab Data: Labs: Lab Results 09/15/20 09/15/20 09/15/20 Range/Units 02:09 02:09 02:09 WBC 9.4 (4.0-10.0) 10^3/ uL RBC 4.50 (4.1-5.3) 10^6/u L Hgb 12.1 (11.7-16.6) g/dL Hct 39.7 L (42.0-52.0) % MCV 88.2 (80-94) fL MCH 26.9 L (28.0-34.0) pg MCHC 30.5 (30.0-36.0) g/dL RDW 16.7 H (12.1-15.1) % Plt Count 262 (130-400) 10^3/c mm MPV 11.7 H (7.4-10.4) fL Neut % (Auto) 75.3 % Lymph % (Auto) 17.1 % [place] % (Auto) 6.5 % Eos % (Auto) 0.6 % Baso % (Auto) 0.2 % Neut # (Auto) 7.08 (1.8-7.7) 10^3/u L Lymph # (Auto) 1.6 (0.8-4.8) 10^3/u L [place] # (Auto) 0.6 (0.2-0.9) 10^3/u L Eos # (Auto) 0.1 (0.0-0.8) 10^3/u L Baso # (Auto) 0.0 (0.0-0.1) 10^3/u L Nucleated RBC % (a uto) 0 % Nucleated RBCs # 0.0 /100WBC PT 25.20 H (12.1-14.9) SECO NDS INR 2.19 H (0.8-1.2) D-Dimer 1.04 H (0-0.59) ug/mIFE U Sodium 139 (136-145) mmol/L Potassium 4.6 (3.5-5.1) mmol/L Chloride 102 (98-107) mmol/L Carbon Dioxide 27 (22-29) mmol/L Anion Gap 14.6 (5-19) BUN 23 (8-23) mg/dL Creatinine 1.1 (0.7-1.2) mg/dL GFR Calculation 66.2 L (90-130) mL/min Glucose 139 H (65-115) mg/dL Calculated Osmolal ity 294 (285-295) mOsm/k g Calcium 9.1 (8.5-10.5) mg/dL Total Bilirubin 0.6 (0.15-1.2) mg/dL AST 34 (0-40) U/L ALT 25 (0-41) U/L Alkaline Phosphata se 104 (40-130) IU/L NT-Pro-B Natriuret Pep 6467 H (0-125) pg/mL Total Protein 6.2 L (6.6-8.7) g/dL Albumin 3.6 (3.5-5.2) g/dL Globulin 2.6 (1.3-4.6) g/dL Imaging Data^: CT Chest: Attestation: I personally reviewed and interpreted this imaging study as follows: Radiologist's impression: [address] [address] [address] Scan Report Signed Patient: Tom Perales Unit #: [id number] : 1950 Age/Sex: 70 / M ADM Date: 09/15/20 Loc: ER Room/Bed: Attending Dr: Ordering Provider/Ordering MD: Suzanna Chao MD Date of Service: 09/15/20 Procedure(s): CT angio chest PE [facility] [id number] Accession Number(s): [id number] Report Number: [id number] PROCEDURE INFORMATION: Exam: CT Angiography Chest With Contrast Exam date and time: 09/15/2020 3:14 AM Age: 70 years old Clinical indication: Dyspnea; Additional info: SOB TECHNIQUE: Imaging protocol: Computed tomographic angiography of the chest with intravenous contrast. 3D rendering (Not supervised by radiologist): MIP and/or 3D reconstructed images were created by the technologist. Radiation optimization: All CT scans at this facility use at least one of these dose optimization techniques: automated exposure control; mA and/or kV adjustment per patient size (includes targeted exams where dose is matched to clinical indication); or iterative reconstruction. Contrast material: VISI; Contrast volume: 95 ml; Contrast route: INTRAVENOUS (IV); COMPARISON: CT Chest/Abdomen/Pelvis w IV* 04/23/2018 11:28 AM RADIATION DOSE METRICS: Total DLP (mGy-cm): 651.32 FINDINGS: Pulmonary arteries: No pulmonary emboli identified. Aorta: Mild atherosclerotic calcification of the thoracic aorta. No thoracic aortic aneurysm identified. Lungs: Moderate airspace opacity (atelectasis and/or consolidation) in the right lower lobe posteriorly. Mild atelectasis in the lingula. Moderate airspace opacity (atelectasis and/or consolidation) in the left lower lobe posteriorly. Pleural space: Moderate bilateral pleural effusions (right is larger), both new since prior study. Heart: Mild cardiomegaly. Lymph nodes: Enlarged left paratracheal lymph node measuring 1.3 cm short axis on series 2, image 156. This is larger than prior study. Bones/joints: Healed fracture of the right mid clavicle. Mild degenerative changes of the thoracic spine. Soft tissues: Unremarkable. Other findings: Images of the upper abdomen were reviewed. Small amount of free fluid visualized in the perihepatic region. If additional or more detailed information is needed, an addendum can be generated on request. CT/CT angio chest PE protcl [id number] IMPRESSION: 1. No pulmonary emboli identified. 2. Moderate airspace opacity (atelectasis and/or consolidation) in the right lower lobe posteriorly. Moderate airspace opacity (atelectasis and/or consolidation) in the left lower lobe posteriorly. These findings are new since prior study. 3. Moderate bilateral pleural effusions (right is larger), both new since prior study. 4. Small amount of free fluid visualized in the perihepatic region. Radiation Dose CTDIVOL = (mGy): DLP = 651.32 (mGy-cm) EKG Data^: EKG 1: Attestation: I personally reviewed and interpreted this EKG as follows: EKG Interpretation Date: 09/15/20 EKG interpretation time: 03:08 Interpretation: afib hr [address] or t wave abnormalities qrs 98 qtc 442 Discharge Plan Discharge Patient Disposition: Home Clinical Impression: Leg edema, Community acquired pneumonia Condition: Stable Prescriptions: New doxycycline hyclate 100 mg capsule 100 mg PO BID 7 Days Qty: 14 RF: 0 No Action losartan [Cozaar] 50 mg tablet 50 mg PO DAILY RF: 0 aspirin [Adult Low Dose Aspirin] 81 mg tablet,delayed release (DR/EC) 81 mg PO DAILY RF: 0 omega-3 fatty acids [Fish Oil Concentrate] 1,000 mg capsule 1,000 mg PO DAILY RF: 0 glucosamine-chondroitin 900 mg tablet 900 mg PO DAILY RF: 0 Zoladex 10.8 mg implant 10.8 mg SUBCUT DIRECTED RF: 0 turmeric 400 mg capsule PO DAILY RF: 0 Myrbetriq 25 mg tablet extended release 24 hr 25 mg PO Q24H Qty: 30 RF: 12 meloxicam 15 mg tablet 15 mg PO DAILY Qty: 90 RF: 1 cholecalciferol (vitamin D3) 125 mcg (5,000 unit) capsule 125 mcg PO DAILY RF: 0 simvastatin 40 mg tablet 40 mg PO DAILY RF: 0 hydrochlorothiazide 25 mg tablet 25 mg PO QAM Qty: 30 RF: 1 multivitamin Tablet 1 tab PO DAILY RF: 0 Xarelto 20 mg tablet 20 mg PO DAILY RF: 0 furosemide [Lasix] 40 mg tablet 40 mg PO QAM Qty: 7 RF: 0 metoprolol tartrate 50 mg tablet 50 mg PO BID Qty: 60 RF: 0 potassium chloride 20 mEq tablet extended release 20 meq PO DAILY Qty: 7 RF: 0 Norvasc 10 mg tablet 5 mg PO DAILY Qty: 0 RF: 0 Discharge Orders: Discharge ED (Routine); Ordered 09/15/20 Ordered By: Suzanna Chao Referrals: Pablito Winslow MD [Primary Care Provider] - Discharge Diet: Advance as tolerated Discharge Activity: Resume usual activity Patient Instructions: Leg Edema (ED), Pneumonia (ED) Coding Level of Care Code ED Bss Solution Architect for Chg Fwd Exam Comprehensive
[2020-09-15 02:39] LABS: Basophils % 0.2 %; Eosinophils # 0.1 10^3/uL (0.0-0.8); Eosinophils % 0.6 %; Hematocrit 39.7 % (42.0-52.0); Hemoglobin 12.1 g/dL (11.7-16.6); Lymphocytes # 1.6 10^3/uL (0.8-4.8); Lymphocytes % 17.1 %; Mean Corpuscular HGB Conc 30.5 g/dL (30.0-36.0); Mean Corpuscular Hemoglobin 26.9 pg (28.0-34.0); Mean Corpuscular Volume 88.2 fL (80-94); Mean Platelet Volume 11.7 fL (7.4-10.4); Monocytes # 0.6 10^3/uL (0.2-0.9); Monocytes % 6.5 %; Neutrophils # 7.08 10^3/uL (1.8-7.7); Neutrophils % 75.3 %; Nucleated Red Blood Cells % 0 %; Platelet Count 262 10^3/cmm (130-400); Red Cell Distribution Width 16.7 % (12.1-15.1); White Blood Count 9.4 10^3/uL (4.0-10.0)
[2020-09-15 02:53] LABS: Alanine Aminotransferase 25 U/L (0-41); Albumin Level 3.6 g/dL (3.5-5.2); Alkaline Phosphatase 104 IU/L (40-130); Anion Gap 14.6 (5-19); Aspartate Amino Transferase 34 U/L (0-40); Blood Urea Nitrogen 23 mg/dL (8-23); Calcium 9.1 mg/dL (8.5-10.5); Carbon Dioxide 27 mmol/L (22-29); Chloride 102 mmol/L (98-107); Globulin 2.6 g/dL (1.3-4.6); Glomerular Filtration Rate 66.2 mL/min (90-130); Glucose 139 mg/dL (65-115); NT Pro B Type Natriuretic Pept 6467 pg/mL (0-125); Osmolality Calculated 294 mOsm/kg (285-295); Potassium 4.6 mmol/L (3.5-5.1); Sodium 139 mmol/L (136-145); Total Bilirubin 0.6 mg/dL (0.15-1.2); Total Protein 6.2 g/dL (6.6-8.7)
[2020-09-15 02:58] LABS: INR 2.19 (0.8-1.2)
[2020-09-15 03:01] LABS: D Dimer 1.04 ug/mIFEU (0-0.59)
[2020-09-15 03:11] VITALS: BP 118/88; PULSE 96; O2SAT 97
--- NOTE | 2020-09-15 03:12 | CTR_ITS ---
PROCEDURE INFORMATION: Exam: CT Angiography Chest With Contrast Exam date and time: 09/15/2020 3:14 AM Age: 70 years old Clinical indication: Dyspnea; Additional info: SOB TECHNIQUE: Imaging protocol: Computed tomographic angiography of the chest with intravenous contrast. 3D rendering (Not supervised by radiologist): MIP and/or 3D reconstructed images were created by the technologist. Radiation optimization: All CT scans at this facility use at least one of these dose optimization techniques: automated exposure control; mA and/or kV adjustment per patient size (includes targeted exams where dose is matched to clinical indication); or iterative reconstruction. Contrast material: VISI; Contrast volume: 95 ml; Contrast route: INTRAVENOUS (IV); COMPARISON: CT Chest/Abdomen/Pelvis w IV* 04/23/2018 11:28 AM RADIATION DOSE METRICS: Total DLP (mGy-cm): 651.32 FINDINGS: Pulmonary arteries: No pulmonary emboli identified. Aorta: Mild atherosclerotic calcification of the thoracic aorta. No thoracic aortic aneurysm identified. Lungs: Moderate airspace opacity (atelectasis and/or consolidation) in the right lower lobe posteriorly. Mild atelectasis in the lingula. Moderate airspace opacity (atelectasis and/or consolidation) in the left lower lobe posteriorly. Pleural space: Moderate bilateral pleural effusions (right is larger), both new since prior study. Heart: Mild cardiomegaly. Lymph nodes: Enlarged left paratracheal lymph node measuring 1.3 cm short axis on series 2, image 156. This is larger than prior study. Bones/joints: Healed fracture of the right mid clavicle. Mild degenerative changes of the thoracic spine. Soft tissues: Unremarkable. Other findings: Images of the upper abdomen were reviewed. Small amount of free fluid visualized in the perihepatic region. If additional or more detailed information is needed, an addendum can be generated on request. CT/CT angio chest PE protcl [id number] IMPRESSION: 1. No pulmonary emboli identified. 2. Moderate airspace opacity (atelectasis and/or consolidation) in the right lower lobe posteriorly. Moderate airspace opacity (atelectasis and/or consolidation) in the left lower lobe posteriorly. These findings are new since prior study. 3. Moderate bilateral pleural effusions (right is larger), both new since prior study. 4. Small amount of free fluid visualized in the perihepatic region. Radiation Dose CTDIVOL = (mGy): DLP = 651.32 (mGy-cm)
[2020-09-15] MEDS: iodixanol 320 mg/mL 100mL Btl IV (03:21)
[2020-09-15 04:13] VITALS: BP 121/98; PULSE 94; RESP 21; O2SAT 98
[2020-09-15 04:42] VITALS: BP 121/98; PULSE 100; RESP 21; O2SAT 96
== END 2020-09-15 04:49 | disposition home or self-care (01) ==
PROVIDERS: Emergency Provider Emergency Medicine; PCP Family Medicine Adult Medicine
DX: J18.9 Pneumonia, unspecified organism (principal); R60.0 Localized edema; Z79.82 Long term (current) use of aspirin; N18.2 Chronic kidney disease, stage 2 (mild); Z85.46 Personal history of malignant neoplasm of prostate
CPT/HCPCS: 12345; 71045; 71275; 80053; 83880; 85025; 85378; 85610; 93005; 96374; 99283; 99284; 99291; J1940; Q9967

== ENCOUNTER → 2020-09-25 13:37 | Outpatient (BNVA) | payer MEDICARE, SELFPAY | PROVIDERS: PCP Family Medicine Adult Medicine; Visit Provider Family Medicine | DX: R60.0 Localized edema (principal) | CPT/HCPCS: 80048 ==

== ENCOUNTER 2020-10-01 13:23 | Outpatient (CLI) | payer MEDICARE, SELFPAY ==
--- NOTE | 2020-10-01 15:00 | USCV_ITS ---
Tom Perales Age: 70 Gender: M : 1950 Exam Date: 10/01/2020 14:39 Ordering Phys: Genesis Dominguez DO Technologist: Eber Bess [place] [facility] [place]: CHF BP: 126 / 72 HR: 56 Rhythm: Sinus Technical Quality: Fair MEASUREMENTS (Male / Female) Normal Values 2D ECHO LV Diastolic Diameter PLAX 6.6 cm 4.2 - 5.9 / 3.9 - 5.3 cm LV Systolic Diameter PLAX 6.0 cm IVS Diastolic Thickness 1.1 cm 0.6 - 1.0 / 0.6 - 0.9 cm IVS Systolic Thickness 1.2 cm LVPW Diastolic Thickness 1.1 cm 0.6 - 1.0 / 0.6 - 0.9 cm LVPW Systolic Thickness 1.4 cm LVOT Diameter 2.2 cm LV Ejection Fraction 2D Teich 19.9 % LV Ejection Fraction MOD 2C 34.5 % LV Ejection Fraction 2C AL 33.1 % LA Diameter 5.3 cm LA Width 5.0 cm LA Height 7.0 cm RA Width 3.4 cm RA Height 6.6 cm Aorta at Sinotubular Diameter 3.0 cm M-MODE LV Diastolic Diameter MM 7.9 cm 4.2 - 5.9 / 3.9 - 5.3 cm LV Systolic Diameter MM 6.6 cm LV Ejection Fraction MM Teich 33.3 % IVS Diastolic Thickness MM 1.1 cm 0.6 - 1.0 / 0.6 - 0.9 cm IVS Systolic Thickness MM 1.5 cm LVPW Diastolic Thickness MM 1.2 cm 0.6 - 1.0 / 0.6 - 0.9 cm LVPW Systolic Thickness MM 1.5 cm RV Diastolic Diameter MM 2.5 cm Aortic Annulus Diameter 3.6 cm LA Ao Ratio MM 1.6 MV E Point Septal Separation 2.8 cm DOPPLER AV Peak Velocity 94.0 cm/s LVOT Peak Velocity 77.0 cm/s AV Area Cont Eq vti 2.9 cm squared AV Area Cont Eq pk 3.1 cm squared MV E' Velocity 12.0 cm/s TR Peak Velocity 322.0 cm/s TR Peak Gradient 41.5 mmHg TV Peak E Velocity 70.0 cm/s Right Atrial Pressure 3.0 mmHg Pulmonary Artery Systolic Pressu 44.5 mmHg PV Peak Velocity 71.7 cm/s RV Acceleration Time 0.1 s FINDINGS Left Ventricle Severely increased left ventricular cavity size. Severely decreased left ventricular systolic function. Left ventricular ejection fraction is estimated at 33 %. Global left ventricular hypokinesis. Right Ventricle The right ventricle is normal in size and function. Mild pulmonary hypertension, RVSP 44.5 mmHg. Right Atrium The right atrium is normal in size. Left Atrium Moderately increased left atrial size. Mitral Valve Moderately thickened mitral valve. No mitral valve stenosis. Moderate mitral valve regurgitation. Aortic Valve Moderate aortic valve calcification. No aortic valve stenosis. No aortic valve regurgitation. Tricuspid Valve Mild tricuspid valve regurgitation. Pulmonic Valve Structurally normal pulmonic valve without significant stenosis. There is no pulmonic regurgitation. Pericardium Normal pericardium without effusion. Aorta Normal ascending aorta dimension. CONCLUSIONS 1-Severely increased left ventricular cavity size. Severely decreased left ventricular systolic function. Left ventricular ejection fraction is estimated at 33 %. Global left ventricular hypokinesis. 2-The right ventricle is normal in size and function. Mild pulmonary hypertension, RVSP 44.5 mmHg. 3-Moderately increased left atrial size. 4-Moderately thickened mitral valve. No mitral valve stenosis. Moderate mitral valve regurgitation. 5-Moderate aortic valve calcification. No aortic valve stenosis. No aortic valve regurgitation. 6-Mild tricuspid valve regurgitation. 7-There is no pericardial effusion. 8-The right ventricle is normal in size and function. Mild pulmonary hypertension, RVSP 44.5 mmHg. 9-Right atrial pressure is around 5 mm of mercury. 10-There are no prior echocardiogram studies to compare. Jessica Salinas MD (Electronically Signed) Final Date: 01 October 2020 18:50 S
== END 2020-10-01 13:24 | disposition home or self-care (01) ==
PROVIDERS: PCP Family Medicine; Visit Provider Family Medicine
DX: R60.0 Localized edema (principal); R06.02 Shortness of breath; I27.20 Pulmonary hypertension, unspecified; I08.3 Combined rheumatic disorders of mitral, aortic and tricuspid valves
CPT/HCPCS: 93306

== ENCOUNTER → 2020-11-25 08:41 | Outpatient (BNVA) | payer MEDICARE, SELFPAY | PROVIDERS: PCP Family Medicine; Visit Provider Internal Medicine | DX: Z01.812 Encounter for preprocedural laboratory examination (principal); I50.9 Heart failure, unspecified; I10 Essential (primary) hypertension | CPT/HCPCS: 87635 ==

== ENCOUNTER 2020-11-30 12:00 | Inpatient (IN) | payer MEDICARE, SELFPAY ==
[2020-11-25 08:25] LABS: Basophils % 0.1 %; Eosinophils # 0.1 10^3/uL (0.0-0.8); Eosinophils % 1.1 %; Hematocrit 39.9 % (42.0-52.0); Hemoglobin 12.4 g/dL (11.7-16.6); Lymphocytes # 1.3 10^3/uL (0.8-4.8); Lymphocytes % 17.5 %; Mean Corpuscular HGB Conc 31.1 g/dL (30.0-36.0); Mean Corpuscular Hemoglobin 26.3 pg (28.0-34.0); Mean Corpuscular Volume 84.7 fL (80-94); Mean Platelet Volume 10.8 fL (7.4-10.4); Monocytes # 0.6 10^3/uL (0.2-0.9); Monocytes % 7.6 %; Neutrophils # 5.41 10^3/uL (1.8-7.7); Neutrophils % 73.3 %; Nucleated Red Blood Cells % 0 %; Platelet Count 200 10^3/cmm (130-400); Red Blood Count 4.71 10^6/uL (4.1-5.3); Red Cell Distribution Width 15.6 % (12.1-15.1); White Blood Count 7.4 10^3/uL (4.0-10.0)
[2020-11-25 08:37] LABS: INR 2.87 (0.8-1.2)
[2020-11-25 08:43] LABS: Anion Gap 14.3 (5-19); Blood Urea Nitrogen 30 mg/dL (8-23); Calcium 9.6 mg/dL (8.5-10.5); Carbon Dioxide 27 mmol/L (22-29); Chloride 104 mmol/L (98-107); Glomerular Filtration Rate 73.9 mL/min (90-130); Glucose 95 mg/dL (65-115); Osmolality Calculated 298 mOsm/kg (285-295); Potassium 4.3 mmol/L (3.5-5.1); Sodium 141 mmol/L (136-145)
[2020-11-30] VITALS (20 sets, daily range): BP systolic 119–152; BP diastolic 87–112; PULSE 82–104; RESP 12–27; TEMP 37.1; O2SAT 90–98; BMI 35.1
--- NOTE | 2020-11-30 09:00 | XACV_ITS ---
Ht: 183 cm Wt: 117 kg BSA: 2.48 m2 Gender: Male : 1950 Any Known Allergies: No known allergies Exam Priority: Routine Procedure(s): Procedure Description: Diagnostic procedure Procedure Description: Left Heart Catheterization Procedure Description: Right Heart Catheterization Procedure Description: O2 saturation Procedure Description: Coronary Angiography Diagnostic Cath Status: Elective Diagnostic Findings * Right heart cath findings: RA pressure: 23/25, 23 mmHg RV pressure: 20 53/16, 22 mmHg PA pressure: 56/33, 43 mmHg PCW: 42/37, 36 mmHg TP mmHg PVR: 1.44 Wood units . * No significant disease noted in the Left Main, LAD, Circumflex, or RCA coronary arteries. * Coronary angiography shows right dominance. Conclusions 1. Elevated right and left sided cardiac pressures. 2. Moderate post capillary pulmonary hypertension. 3. Non ischemic cardiomyopathy. 4. No significant disease noted in the Left Main, LAD, Circumflex, or RCA coronary arteries. Recommendations * Guide line directed medical therapy. * Will initiate lasix 20mg BID. * Outpatient cardiology follow up. Diagnostic RX Recommendation: medical therapy and/or counseling Pressures Phase:Rest AO : 120 / 89 ( 102 ) @ 6:20:00 AM 136 / 86 ( 110 ) @ 6:31:00 AM LV : 133 / 24 / @ 6:31:00 AM RV : 53 / 16 / @ 6:18:00 AM PA : 56 / 33 ( 43 ) @ 6:15:00 AM RA : a wave = v wave = mean = 23 @ 6:18:00 AM O2 Content Phase:Rest PA : O2 Content O2: 55.4 @ 6:20:00 AM Saturations Phase:Rest AO : 94 @ 6:31:00 AM PA : 55 @ 6:20:00 AM Cardiac Output Phase:Rest Uzma : 5 @ 6:20:00 AM Uzma Cardiac Index: 2 @ 6:20:00 AM Clinical Evaluation EBL: 5mL-10mL Procedural Details Procedure Consent Obtained. Pre-Procedure Time Out. Identified patient by full name and date of as verbalized by the patient/guarantor. Does the consent match the physician's order: Yes. Accurate & Complete Informed Consent: Yes. Inpatient/Outpatient History & Physical on Chart: Yes. If H&P is completed, is and addenduem needed: No; If yes, is the addendum complete: N/A. Visualize and Verify Site with Patient/Guarantor: N/A. Relevant Radiology Images available: N/A. Pre-op teaching completed and patient verbalized understanding. The risks, benefits, and alternatives of sedation and/or procedure were discussed by physician. The patient agrees to continue. Procedure started. [facility] Clinical Fraility Score: 3: Managing Well. Requirements Engineer Indications: LV Dysfunction, cardiomyopathy. Chest Pain Symptom Assessment: Non-anginal Chest Pain, dyspnea on exertion. Cardiovascular Instability: No. Correct patient, site and procedure confirmed by cath team. PERRLA. Strong, equal hand telegraph office manager bilaterally. Lungs clear x 5 lobes. IV Site on Arrival: 20 gauge in the left anticubital. IV Site on Arrival: 18 gauge in the right anticubital. IV Fluids: 0.9% NaCl at KVO. 0 mL infused prior to labor law professor. Pre Procedural Pulses: bilateral dorsalis pedis was Doppled. Pre Procedural Pulses: bilateral posterior tibial was Doppled. Pre Procedural Pulses: bilateral radial was 3+. bilateral groins was prepped with chloroprep then draped in the usual sterile fashion. right radial was prepped with chloroprep then draped in the usual sterile fashion. right brachial was prepped with chloroprep then draped in the usual sterile fashion. Physician arrived. Equipment: 6F - Radial. Cardiac Cath Pack. ACIST Manifold Kit Model BT 2000. Heparinized Saline (2 units/mL), 1000 mL bag. Baseline sample Acquired. HR: 109 BPM. Physician scrubbed in. Immediate Pre-Procedure Time Out. Correct Patient: Yes; Correct Procedure: Yes; Correct Site: Yes; Correct Patient Position: Yes; Correct Supplies: Yes; Dried Flammable Prep: Yes; Blood Products Available: N/A;. Sheath wire inserted through IV catheter in right brachial vein. Unable to advance wire using brachial vein. Called ultrasound to come assist with obtaining venous access. Lidocaine 1% infiltrated to the right radial. Adelaide from ultrasound arrived to assist. Arterial access obtained. Wire inserted through IV catheter in right brachial vein using ultrasound guidance. Unable to advance wire. Wire out. Physician moving to femoral approach for venous access. Lidocaine 1% infiltrated to the right groin. Venous access obtained with a micropuncture set in right femoral vein. Kensal-Jacob MON catheter inserted. 0.025 glidewire inserted. Glidewire out. Kensal 0.025 wire inserted. Wire out. Kensal-Jacob out. A 5 ukrainian TIG catheter in over wire through right radial arterial access. Multiple views taken of left coronary artery. Catheter redirected to the RCA. Multiple views taken of right coronary artery. Catheter removed over the exchange wire. A CRD 6F 145 degree Pigtail 110cm Diagnostic Catheter was advanced over the wire and used for Ventriculography. EDP Sample taken: LV 133/24,26; HR: 100 BPM; SpO2: 100%. Pullback taken: LV Off; AO Off; Mean: , Peak to Peak: , SEP: ; HR: 95 BPM; SpO2: 100%. Catheter removed over the exchange wire. Physician scrubbed out. A TR Band was successful obtaining hemostatsis at the Right Radial artery insertion site. A Suture was successful obtaining hemostatsis at the Right Femoral vein insertion site. TR band placed. Hemostasis obtained. Sheath(s) sutured into position with 2-0 silk and sterile 4x4's and Op-site applied over the site. No oozing or signs and symptoms of hematoma noted. Post Procedure: Pulses reassessed and unchanged. PERRLA. Strong, equal hand telegraph office manager bilaterally. No VTE prophylaxis required. Contrast type used: Omnipaque 300 mgI/mL, 500 mL bottle. Post-op diagnosis: non ischemic cardiomyopathy, non obstructive CAD. Medication's Wasted: Lidocaine 1% = 18 mL. Medication's Wasted: Nitro = 49.8 mg. Medication's Wasted: Heparin = 1000 units. Total IV fluids: 76.4 mL. Complications: none. Estimated blood loss: 5mL-10mL. Procedure completed. Patient transferred by bed to 1st floor. Vital chart was stopped. Access Site Site: Right Radial artery Sheath Size: 6 Fr Hemostasis Method: TR Band Hemostasis Success: Successful Site: Right Femoral vein Sheath Size: 6 Fr Hemostasis Method: Suture Hemostasis Success: Successful Procedure Medications Start: 10:39 AM Stop: 10:39 AM Medication: Versed Amount: 1 mg Route: I.V. Start: 10:39 AM Stop: 10:39 AM Medication: Fentanyl Amount: 50 mcg Route: I.V. Start: 10:41 AM Stop: 10:41 AM Medication: Versed Amount: 1 mg Route: I.V. Start: 10:41 AM Stop: 10:41 AM Medication: Fentanyl Amount: 25 mcg Route: I.V. Start: 10:49 AM Stop: 10:49 AM Medication: Nitrogylcerin Amount: 200 mcg Route: I.A. Start: 11:19 AM Stop: 11:19 AM Medication: Heparin Amount: 5000 units Route: I.V. Start: 11:21 AM Stop: 11:21 AM Medication: Fentanyl Amount: 25 mcg Route: I.V. I, the attending physician, have reviewed and verified all procedure medications. Yes, all medications given per verbal order History/Risk Factors Hypertension: Yes Dyslipidemia: No Peripheral Arterial Disease (PAD): No Myocardial Infarction (LA): No Obesity: Yes Renal Disease: No Tobacco Use: Never Prior Interventions PCI: No CABG: No Valve Surgery: No Report Signatures Finalized by Bassem Logan MD on 12/07/2020 06:03 PM
--- NOTE | 2020-11-30 10:01 | P.HP_ITS ---
Providers/Chief Complaint Admitting Physician: Bassem Logan MD Primary Care Provider: Genesis Dominguez DO Chief Complaint: Cardiac Catheterization History of Present Illness 70-year-old man with past medical history of hypertension, atrial fibrillation, recent Covid infection in June, AAA repair 13 years ago referred to cardiology for evaluation of new onset heart failure. Patient also has history of radiation therapy in the past. According to patient he started noticing increased swelling in the legs over the last few months. He went underwent echocardiogram that showed an EF of 33% with global hypokinesis. No prior cardiac history. Shortness of breath has worsened over time. He is planned to undergo right and left heart catheter today. Review of Systems General: Reports: 10 or more systems reviewed and unremarkable except in HPI and below Const: Denies: fever(s), chills, body aches or change in weight Eyes: Denies: change in vision or blurry vision ENMT: Denies: throat pain or odynophagia Card: Reports: edema (Stable.), swelling of feet/ankles and dyspnea on exertion; Denies: chest pain, palpitations, irregular heart rhythm, lightheadedness, syncope, orthopnea, leg pain with exertion or acrocyanosis Resp: Denies: dyspnea, productive cough, non-productive cough or wheezing GI: Denies: nausea, vomiting or diarrhea : Denies: difficulty urinating Musc: Denies: neck pain, back pain or joint pain Skin/Breast: Denies: rash or pruritus Neuro: Denies: headache(s), numbness in extremities, weakness in extremities, dizziness or vertigo Psych: Denies: anxiety or depression Cesar/Lymph: Denies: easy bruising or easy bleeding Medications/Allergies Home Medications Medication Instructions Recorded Confirmed Last Taken Type antiarthritic combination no.2 900 900 mg PO DAILY 10/22/19 11/27/20 02/19/20 History mg tablet aspirin 81 mg tablet,delayed 81 mg PO DAILY 10/22/19 11/27/20 02/16/20 History release goserelin 10.8 mg subcutaneous 10.8 mg SUBCUT DIRECTED 10/22/19 11/27/20 01/21/20 History implant losartan 50 mg tablet 50 mg PO DAILY 10/22/19 11/27/20 02/19/20 History omega-3 fatty acids 1,000 mg 1,000 mg PO DAILY 10/22/19 11/27/20 02/19/20 History capsule multivitamin 1 tab PO DAILY 12/04/19 11/27/20 02/19/20 History rivaroxaban 20 mg tablet 20 mg PO DAILY 12/04/19 11/27/20 02/17/20 History turmeric 400 mg capsule mg PO DAILY cap 06/17/20 10/20/20 Unknown History cholecalciferol (vitamin D3) 125 125 mcg PO DAILY 07/19/20 11/27/20 Unknown History mcg (5,000 unit) capsule amlodipine [Norvasc] 5 mg PO DAILY #0 tab 08/22/20 11/27/20 02/19/20 Rx simvastatin 40 mg tablet 40 mg PO DAILY 09/07/20 11/27/20 Unknown History potassium chloride 10 mEq 10 meq PO DAILY #30 tab 10/13/20 11/27/20 Unknown Rx tablet,extended release carvedilol 3.125 mg tablet 3.125 mg PO BID #180 tab 10/20/20 11/27/20 Unknown Rx metoprolol tartrate 50 mg tablet 50 mg PO BID #60 tab 11/05/20 11/27/20 Unknown Rx Allergies Allergy/AdvReac Type Severity Reaction Status Date / Time No Known Allergies Allergy Verified 10/20/20 12:18 PFSH Acute PFSH: Medical History Chronic kidney disease (CKD) stage G2/A1, mildly decreased glomerular filtration rate (GFR) between 60-89 mL/min/1.73 square meter and albuminuria creatinine ratio less than 30 mg/g Follicular lymphoma Osteoarthritis involving multiple joints on both sides of body Prostate cancer Urgency incontinence Urgency-frequency syndrome Surgical History History of left inguinal hernia repair Hx of prostatectomy ROBOTIC Hx of sinus surgery Hx of vasectomy Status post colonoscopy (02/20/20) normal - repeat 5 years , poor prep Family History Father , AT AGE 63 Cancer Mother , AT AGE 91 CAD (coronary artery disease) Stroke Cancer Denies family history of Anesthesia complication Bleeding disorder Social History (Reviewed 11/30/20 @ 10:02 by Soha Argueta Smoking and tobacco status: never smoked Alcohol intake: never Adopted: No Caregiver/support person: No Lives independently: No Household members: spouse Marital status: Current occupational status: retired History of recent travel: No Physical Exam Narrative: EXAM NARRATIVE: GENERAL: Patient is alert, awake and oriented x3. [] NECK: No jugular vein distension. [] HEENT: No cyanosis. No icterus. No pallor. [] HEART: Regular S1 and S2. No murmur, rub or gallop. [] LUNGS: Clear to auscultate bilaterally. [] ABDOMEN: Soft, nontender and nondistended. Positive bowel sounds. No guarding, rebound or tenderness. [] CENTRAL NERVOUS SYSTEM: Grossly nonfocal. [] EXTREMITIES: Lower extremities with 1+ edema bilaterally. Pulses palpable in the lower extremities, both dorsalis pedis and posterior tibial. [] Data : 11/25/20 08:05 11/25/20 08:05 A&P Assessment and plan (1) Systolic CHF: Status: Acute Qualifiers: Heart failure chronicity: chronic Qualified Code(s): I50.22 - Chronic systolic (congestive) heart failure (2) Atrial fibrillation: Status: Acute Qualifiers: Atrial fibrillation type: longstanding persistent Qualified Code(s): I48.11 - Longstanding persistent atrial fibrillation (3) Chronic kidney disease (CKD) stage G2/A1, mildly decreased glomerular ebony tration rate (GFR) between 60-89 mL/min/1.73 square meter and albuminuria creatinine ratio less than 30 mg/g: Status: Acute (4) Osteoarthritis involving multiple joints on both sides of body: Status: Acute Patient has newly diagnosed congestive heart failure. EF is 33%. Will perform right and left heart cath to rule out coronary artery disease and measure cardiac pressures with possible percutaneous coronary intervention. Risks and benefits of procedure have been described. Risks including bleeding, infection, abnormal heart rhythm, kidney function worsening, heart attack, s troke or have been described. Patient understands the risks and benefits and wants to proceed with the procedure. Attestations Medical Necessity Statement*: Care not expected to cross 2 midnights. Patient has come for outpatient right and left heart cath with possible percutaneous coronary intervention. 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
[2020-11-30] MEDS: diphenhydrAMINE 50 mg Capsule PO (10:23)
--- NOTE | 2020-11-30 10:45 | USCV_ITS ---
DiazTom artis Age: 70 Gender: M : 1950 Exam Date: 11/30/2020 11:00 Ordering Phys: Bassem Logan M.D ([email or web address]) Technologist: Adelaide Ballesteros Exam Location: [facility] – [place] Indication: HELP WITH VASCULAR ACCESS TO RT GROIN Findings Ultrasound guided access of Rt CFV. Dr. Logan was attending physician. Common femoral artery and the vein in the right groin was identified. They were found to be patent. Conclusions Patent common femoral artery and vein in the right groin Dr Janene Gorman MD [facility] (Electronically Signed) Final Date: 01 December 2020 23:29 S
[2020-11-30 14:43] LABS: Partial Thromboplastin Time 48.6 SECONDS (23.9-36.7)
--- NOTE | 2020-11-30 18:51 | PC.NURSE ---
Discharge instructions given per the physician's orders. Patient verbalized understanding of teaching and did not have any further questions. No further needs identified at this time.
--- NOTE | 2020-11-30 18:57 | PC.NURSE ---
PATIENT AMBULATED, NO ISSUES WITH AMBULATION. NO VITAL SIGN CHANGES. NO HEMATOMAS TO RIGHT GROIN OR RIGHT WRIST. PATIENT DISCHARGED WITH NO ISSUES. EDUCATION COMPLETE.
== END 2020-11-30 18:58 | disposition home or self-care (01) | DRG 287 ==
LOC: CSU 12:41 → CCL 12-07 08:18
PROVIDERS: Admitting Provider Internal Medicine; PCP Family Medicine; Visit Provider Internal Medicine
PROC: 4A023N8 Measurement of Cardiac Sampling and Pressure, Bilateral, Percutaneous Approach (ICD-10-PCS; principal; 2020-11-30 10:00)
DX: I13.0 Hypertensive heart and chronic kidney disease with heart failure and stage 1 through stage 4 chronic kidney disease, or unspecified chronic kidney disease (principal); I50.22 Chronic systolic (congestive) heart failure; I48.11 Longstanding persistent atrial fibrillation; C82.90 Follicular lymphoma, unspecified, unspecified site; N18.2 Chronic kidney disease, stage 2 (mild); Z86.16 Personal history of COVID-19; Z92.3 Personal history of irradiation; M19.90 Unspecified osteoarthritis, unspecified site; C61 Malignant neoplasm of prostate; Z90.79 Acquired absence of other genital organ(s)
CPT/HCPCS: 36415; 76937; 80048; 85025; 85610; 85730; 93453; C1751; C1769; C1887; C1894; J1644; J2250; J3010; J3490; Q0163; Q9967

== ENCOUNTER → 2020-12-08 11:12 | Outpatient (BNVA) | payer MEDICARE, SELFPAY | PROVIDERS: PCP Family Medicine; Visit Provider Nurse Practitioner Family | DX: I50.22 Chronic systolic (congestive) heart failure (principal); I48.11 Longstanding persistent atrial fibrillation | CPT/HCPCS: 80048 ==

== ENCOUNTER → 2020-12-14 08:28 | Outpatient (BNVA) | payer MEDICARE, SELFPAY | PROVIDERS: PCP Family Medicine; Visit Provider Family Medicine | DX: I11.0 Hypertensive heart disease with heart failure (principal); I50.22 Chronic systolic (congestive) heart failure; Z68.33 Body mass index [BMI] 33.0-33.9, adult | CPT/HCPCS: 80061; 82043 ==

== ENCOUNTER 2020-12-15 08:25 | Outpatient (CLI) | payer MEDICARE, SELFPAY ==
[2020-12-15 09:54] LABS: Prostate Specific Antigen < 0.006 ng/mL (0-4)
--- NOTE | 2020-12-27 17:52 | ONC FU_ITS ---
[facility] Patient Note Patient: Tom Perales Unit #: [id number]: 1950 Dictated By: Judie WorrellDate of Visit: Dec 15, 2020 Onc MED Follow-Up/Prog Note Chief Complaint: Prostate cancer status post prostatectomy History of Present Illness: Mr. Perales is a 70 -year-old gentleman with prostate cancer. On 10/19/2018 he underwent TRUSP/biopsy, 12 cores were taken, 2 cores showed Rosalina score 4+3 with 100% involvement. The other showed Rosalina score 4+4. He had follow-up bone scan done on 10/31/2018 which shows no bone metastases. At that time patient was referred to radiation oncology Dr. Keyes. He was seen in October 2018 and offered radiation therapy. Mr Perales also consulted Dr. Woo, urologist in [place] for surgical consultation and finally decided to proceed with radical prostatectomy. It was performed on 12/17/2018. The final pathology report showed adenocarcinoma, Larue score 3+4, approximately 50% of prostate gland is involved, with positive surgical margin, extracapsular extension is seen, and left seminal vesicle was involved. A left pelvic lymph node was removed and showed no evidence of metastatic disease. Pathological stage, pT3 b, N0 Mx Patient tolerated procedure well and was referred back to Dr Mckeon for postsurgical radiation and hormonal therapy. Mr Perales was seen by Dr. Kumar who started him on Casodex 50 mg by mouth daily in December 2018. Dr Kumar referred him back to the cancer center for short-term therapy with Zoladex and possible radiation therapy. s/p combined radiation therapy/ADT with Zoladex/Casodex Casodex discontinued on 10/15/2019 Mr. Ovalle had received treatment with Zoladex 10.8 mg. His last dose was on April 23, 2020. He is here today for follow-up. He reports that he did have positive Covid on June 21, 2020. He states he essentially covered weLL from that but has now had residual cardiac issues. He states that he lost 30 pounds of fluid. He is doing no salt intake now as much as he can avoid. He reports that he is not short of breath or having chest pain. He denies any lower extremity edema. He reports that he is feeling much better overall and feels that he is doing well. He is watching his diet very closely and is attempting to do some light exercises. He denies any pain. He denies any nausea or vomiting. Denies any lower extremity edema. He states that he has not had any urinary or bowel or bladder changes. His ECOG is 1. Past Medical History: Chronic prostatitis Coronary artery disease History of lymphoma Hypertension Polymyalgia rheumatica COVID 19+ in 2019 Past Surgical History: Carpal tunnel release Hernia repair Repair of right clavicle COVID VAC #1 in 2020 Prostatectomy in 2019 TRUSP/biopsy in 2019 Colonoscopy in 2018 Allergies: Cipro Medications: Aspirin EC 1 (81 mg) Tablet, enteric coated Oral daily Carvedilol 1 Tablet (of 3.125 mg) Oral b.i.d. Cholecalciferol 1 Tablet (of 1.25 mg ) Oral daily Cozaar 1 (50 mg) Tablet Oral daily Fish Oil 1 (1200 mg) Capsule Oral b.i.d. Furosemide 1 Tablet (of 20 mg) Oral b.i.d. Glucosamine-Chondroitin DS Tablet Oral Metoprolol Tartrate 1 Tablet (of 50 mg) Oral b.i.d. Multivitamin Adults 50+ 1 Tablet Oral daily Norvasc 1 (10 mg) Tablet Oral daily Potassium Chloride ER 1 Tablet (of 10 meq) Tablet, controlled release Oral daily Simvastatin 1 Tablet (of 40 mg) Oral daily Tumersaid Tablet Oral Xarelto 1 Tablet (of 20 mg) Oral daily Zoladex Subcutaneous Family History: Mr. Perales's mother at age 92: seizure, and stroke, and breast cancer. Mr. Perales's father at age 63: lung cancer. Mr. Perales's maternal grandmother is : Ovarian Cancer. Mr. Perales has 1 sister who is : ovarian cancer. He has 1 paternal aunt who is : breast cancer. Social History: Mr. Perales is and he is retired. Mr. Perales has never smoked. He has no history of drinking. Vital Signs: Performed on Dec 15, 2020 10:43 Height - 73.00 in Weight - 246.2 lbs (LOW) BSA - 2.35 sq.m BMI - 32.48 (HIGH) Temperature - 97.1 F (LOW) Pulse - 81 /min Respiration - 16 /min BP - 114/81 mm(hg) O2 Sat - 99 % Pain - 0,1 - No physically strenuous activity, but ambulatory and able to carry out light or sedentary work (e.g. office work, light house work). (ECOG) Physical Examination: Constitutional Alert, oriented, no acute distress. Skin pink, warm and dry. Head Normocephalic; atraumatic. Eyes Conjunctivae and sclerae are clear and without icterus. Pupils are reactive and equal. Neck Supple without masses or thyromegaly. No jugular venous distension. Hematologic/Lymphatic No petechiae or purpura. No tender or palpable lymph nodes in the cervical or supraclavicular areas. Respiratory Lungs are clear to auscultation without rhonchi or wheezing. Cardiovascular Regular rate and rhythm of heart without murmurs,clicks, gallops or rubs. Abdomen Non-tender, non-distended, no masses, ascites. Back/Spine Non-tender to palpation. Extremities No visible deformities, no cyanosis, clubbing or edema. Musculoskeletal No tenderness or swelling, normal range of motion without obvious weakness. Integumentary No rashes or lesions. Neurologic No sensory or motor deficits, normal cerebellar function, normal gait. Psychiatric Alert and oriented times three. Coherent speech. Verbalizes understanding of our discussions today. Laboratory:Test performed on Dec 15, 2020 08:45 PSA < 0.006 ng/mL Impression: Adenocarcinoma prostate gland status post radical prostatectomy done on 12/17/2018 Final pathology report showed Rosalina score 7 (3+4), Grade 2, approximately 15% of prostate gland is involved. Next The right and left apical as well as the left posterior margins are involved Extracapsular extension is seen The left seminal vesicle is involved pT3b Left pelvic lymph node excision was done which showed no evidence of metastatic disease pN0 Bone scan done on 10/31/2018 showed no evidence of osseous metastatic disease. M0 pstage III discussed with patient his disease status and treatment options. He does have high risk, stage III disease, but otherwise healthy. Adjuvant therapy with post surgery radiation therapy and ADT in neoadjuvant /concurrent/ adjuvant . He was also started on Casodex per Dr Kumar in December 2018. And was discontinued on October 15, 2019 Plan: PROBLEMS ADDRESSED TODAY 1. Prostate cancer: He will underwent TRUSP/biopsy on October 19, 2018. 12 cores were taken. T4 showed Larue score 4+3 with 100% involvement. The other showed Rosalina score 4+4. He did have follow-up bone scan on 10/31/2018 which showed no bone metastasis. He was referred to radiation oncology and offered radiation therapy however he did see Dr. Woo, urologist in [place] for surgical consultation and ultimately decided to proceed with radical prostatectomy. Prostatectomy was performed on December 17, 2018. The final pathology report showed adenocarcinoma, Larue score 3+4, approximately 10% of the prostate gland was involved. There was positive surgical margin, extracapsular extension was seen in the left seminal vesicle was involved. Left pelvic node was removed and showed no evidence of metastatic disease. He was referred back to Dr. Mckeon for consideration for surgical radiation and hormonal therapy. Mr. Coleman started Casodex 50 mg in December [address] Kumar. His first dose of Zoladex was January 10, 2019. He continued every 3 months and his last dose of Zoladex was given on December 23, 2019. Mr. Perales was advised to stop the Casodex on October 15, 2019. He now remains on observation. His last PSA on 07/22/2020 was 0.006. A. Continue with observation and current plan of care. His PSA today is less than 0.006. He is asymptomatic. B. The PSA was reviewed with him and a copy of the results were given to him as well. C. He will proceed with follow-up in 6 months with PSA. D. Mr. Perales has been encouraged to contact us in interim should questions or problems arise. 2. COVID-19 + June 21, 2020. A. He reports that he has residual cardiac issues. He states that he was placed on diuretic and lost 30 pounds of fluid. He reports that he is on a no salt diet now. He states overall he feels much better. B. He has received his first COVID-19 vaccine on 12/10/2020. Signed By: Judie Worrell-ROSEMARIE, AOCNP Andrew Mckeon MD <<Signature on File>>
== END 2020-12-15 08:26 | disposition home or self-care (01) ==
LOC: ONCMED 08:28
PROVIDERS: PCP Family Medicine; Visit Provider Nurse Practitioner
DX: C61 Malignant neoplasm of prostate (principal); Z92.3 Personal history of irradiation; Z90.79 Acquired absence of other genital organ(s); Z92.23 Personal history of estrogen therapy; Z86.16 Personal history of COVID-19
CPT/HCPCS: 36415; 84153; 99214

== ENCOUNTER 2021-02-18 10:18 | Emergency (ER) | payer MEDICARE, SELFPAY ==
[2021-02-18 10:22] VITALS: PULSE 93; RESP 16; TEMP 36.6; O2SAT 99; BMI 35.2
--- NOTE | 2021-02-18 10:44 | XR_ITS ---
WS: [id number] Left shoulder, 3 views, 02/18/2021 Clinical Data: pain with ROM Comparison: None. Findings: No fractures or dislocations are seen. The AC joint is normal. The adjacent left clavicle, left scapu la and ribs are normal. The soft tissues are unremarkable. XR/XR shoulder LT min 2V* [id number] Impression: Negative left shoulder.
[2021-02-18 10:45] VITALS: PULSE 98
--- NOTE | 2021-02-18 10:45 | ED_ITS ---
HPI - Extremity Problem General: Chief complaint: Extremity Problem,Nontraumatic Stated complaint: LEFT ARM PAIN Time Seen by Provider: 02/18/21 10:27 History of Present Illness: HPI Narrative: Patient having ongoing shoulder pain left shoulder is been going on for weeks but been worse last night and was worse after waking up has pain with range of motion and stiffness in the shoulder joint. Complaint: joint pain Onset (ago): week(s) Pain Consistency: constant Location: left and upper extremity Severity scale (1-10): 7 Quality: aching Radiation: distal Relieving factors: immobilization Exacerbating factors: range of motion Associated symptoms: Reports no associated symptoms; Deny chest pain, fever(s) or rash Context: recent illness Review of Systems Const: Denies: fever(s), chills or body aches Eyes: Denies: change in vision or blurry vision ENMT: Denies: throat pain or nasal congestion Card: Denies: chest pain or dyspnea on exertion Resp: Denies: dyspnea, productive cough or non-productive cough GI: Denies: abdominal pain, nausea or vomiting : Denies: difficulty urinating Musc: Reports: joint pain (Left shoulder pain times weeks worse this morning); Denies: extremity pain Skin/Breast: Denies: rash Neuro: Denies: headache(s) Psych: Denies: anxiety or depression Cesar/Lymph: Denies: easy bruising PFSH ED PFSH: Medical History Chronic kidney disease (CKD) stage G2/A1, mildly decreased glomerular filtration rate (GFR) between 60-89 mL/min/1.73 square meter and albuminuria creatinine ratio less than 30 mg/g Follicular lymphoma Osteoarthritis involving multiple joints on both sides of body Prostate cancer Urgency incontinence Urgency-frequency syndrome Surgical History History of left inguinal hernia repair Hx of prostatectomy ROBOTIC Hx of sinus surgery Hx of vasectomy Status post colonoscopy (02/20/20) normal - repeat 5 years , poor prep Family History Father , AT AGE 63 Cancer Diabetes Lung disease Mother , AT AGE 91 CAD (coronary artery disease) Stroke Cancer Dementia Other Suicide Denies family history of Clotting disorder Chronic kidney disease (CKD) Anesthesia complication Bleeding disorder Social History Smoking and tobacco status: never smoked Alcohol intake: never Adopted: No Caregiver/support person: No Lives independently: No Household members: spouse Marital status: Current occupational status: retired History of recent travel: No Physical Exam Const: COMMON NORMALS: no acute distress, average body habitus and patient oriented x3 HENMT: COMMON NORMALS: normocephalic HEAD & SCALP: normal to inspection and normocephalic FACE & SINUS: normal facial exam Eye: GENERAL EYE: appearance normal, both eyes and all related structures CONJUNCTIVA: Yes conjunctival abnormal (Pale) Neck/C-Spine: COMMON NORMALS: no JVD Chest: COMMONS NORMALS: normal inspection of the chest Resp: COMMON NORMALS: normal respiratory effort and clear to auscultation bilaterally AUSCULTATION: clear to auscultation bilaterally Cardio: COMMON NORMALS: no JVD, regular rate and regular rhythm RATE: regular rate RHYTHM: regular rhythm GI: COMMON NORMALS: Normal to inspection, nondistended, normoactive bowel sounds present Extremity: LEFT UPPER EXTREMITY: Yes shoulder joint (Pain with range of motion and palpation. Hand slightly swollen) Neuro: COMMON NORMALS: patient oriented x3 Procedures Joint Aspiration/Injection Joint Asp./Inject. 1: Time Out Performed: Yes Side of body: left Ultrasound Guidance: No Skin Prep: other Local Anesthetic: lidocaine 1% Amount of anesthesia used (mL): 1 Needle Size Used: 22G Medication Injected, if any: Triamcinolone Acetate Amount of medication injected (mL): 1 Patient Tolerated Procedure: well Complications: none Additional Comments: bursainjection Course Vital Signs: Vital signs: Vital Signs Temperature 97.8 F 02/18/21 10:22 Pulse Rate 98 02/18/21 10:45 Respiratory Rate 16 02/18/21 10:22 Pulse Oximetry 99 02/18/21 10:22 MDM - Extremity (Nontraumatic) MDM Narrative: Medical decision making narrative: Patient presents with a left shoulder pain with range of motion. This been going on for weeks but worse since last night. Has pain with range of motion. X-rays negative for arthritic changes. Symptoms are consistent with a bursitis type presentation. Injection was done into the bursa without difficulty. Discharge Plan Discharge Patient Disposition: Home Clinical Impression: Bursitis of shoulder, left Condition: Stable Prescriptions: New tramadol 50 mg tablet 50 mg PO TID PRN (Reason: pain) Qty: 7 RF: 0 No Action losartan [Cozaar] 50 mg tablet 50 mg PO DAILY RF: 0 aspirin [Adult Low Dose Aspirin] 81 mg tablet,delayed release (DR/EC) 81 mg PO DAILY RF: 0 omega-3 fatty acids [Fish Oil Concentrate] 1,000 mg capsule 1,000 mg PO DAILY RF: 0 glucosamine-chondroitin 900 mg tablet 900 mg PO DAILY RF: 0 Zoladex 10.8 mg implant 10.8 mg SUBCUT DIRECTED RF: 0 turmeric 400 mg capsule PO DAILY RF: 0 simvastatin 40 mg tablet 40 mg PO DAILY RF: 0 multivitamin Tablet 1 tab PO DAILY RF: 0 Xarelto 20 mg tablet 20 mg PO DAILY RF: 0 carvedilol [Coreg] 3.125 mg tablet 3.125 mg PO BID Qty: 180 RF: 3 spironolactone 25 mg tablet 12.5 mg PO DAILY 90 Days Qty: 30 RF: 2 metoprolol tartrate 50 mg tablet 50 mg PO BID Qty: 60 RF: 4 Lasix 20 mg tablet 20 mg PO BID Qty: 60 RF: 1 amlodipine [Norvasc] 10 mg tablet 5 mg PO DAILY Qty: 0 RF: 0 Discharge Orders: Discharge ED (Routine); Ordered 02/18/21 Ordered By: Antonio Syed Referrals: Genesis Dominguez DO [Primary Care Provider] - Discharge Diet: Usual diet Discharge Activity: Increase activity as tolerated Patient Instructions: Shoulder Bursitis (ED), Opioid Safety Activity Restrictions/Additional Instructions: Follow-up with medical provider as directed. Take medications as prescribed. Return to the ER or your medical provider if condition worsens. Please read and understand discharge instructions. If any questions ask please. Coding Level of Care Code ED Expenditure Requisition Clerk for Mickie Fwd Exam Comprehensive
[2021-02-18] MEDS: lidocaine 1% INJ 20 mL INJECTION (10:52)
[2021-02-18] MEDS: triamcinolone 40 mg/mL SDV IM (10:52)
== END 2021-02-18 12:00 | disposition home or self-care (01) ==
PROVIDERS: Emergency Provider Nurse Practitioner Family; PCP Family Medicine
DX: M75.52 Bursitis of left shoulder (principal); Z79.82 Long term (current) use of aspirin; N18.2 Chronic kidney disease, stage 2 (mild); Z85.46 Personal history of malignant neoplasm of prostate
CPT/HCPCS: 20610; 73030; 96372; 99283; J3301

== ENCOUNTER → 2021-03-17 07:48 | Outpatient (BNVA) | payer MEDICARE, SELFPAY | PROVIDERS: PCP Family Medicine Adult Medicine; Visit Provider Urology | DX: C61 Malignant neoplasm of prostate (principal); N32.81 Overactive bladder | CPT/HCPCS: 81003 ==

== ENCOUNTER → 2021-05-19 11:24 | Outpatient (BNVA) | payer MEDICARE, SELFPAY | PROVIDERS: PCP Family Medicine Adult Medicine; Visit Provider Family Medicine Adult Medicine | DX: N39.0 Urinary tract infection, site not specified (principal); E66.9 Obesity, unspecified; I10 Essential (primary) hypertension; N32.81 Overactive bladder | CPT/HCPCS: 81000 ==

== ENCOUNTER 2021-05-21 19:20 | Inpatient (IN) | payer MEDICARE, SELFPAY ==
--- NOTE | 2021-05-21 19:23 | W.ED.MALEGU ---
HPI - Male Genitourinary General: Chief complaint: ER Hold Stated complaint: UTI Time Seen by Provider: 05/21/21 19:21 History of Present Illness: HPI Narrative: Mr. Ovalle is a 71-year-old gentleman with significant past medical history of hypertension, hyperlipidemia, CKD, atrial fibrillation on anticoagulation who presents emergency department due to altered mental status. Apparently yesterday the patient tested positive for urinary tract infection. He has difficulty articulating the symptoms that he was having however says that he has felt ill for about 3 days. Today he is markedly worsened. The patient is oriented to self only and due to mental status is unable to articulate other significant factors. Therefore it is unknown the course, quality, intensity, provoking, exacerbating, or any other modifying factors. Review of Systems Narrative: unable to obtain due to mental status PFS ED PFSH: Medical History (Updated 05/22/21 @ 09:31 by Fide Puri MD) Chronic kidney disease (CKD) stage G2/A1, mildly decreased glomerular filtration rate (GFR) between 60-89 mL/min/1.73 square meter and albuminuria creatinine ratio less than 30 mg/g COVID-19 (~06/2020) Erectile dysfunction Follicular lymphoma Hyperlipidemia Hypertension Leg edema Obesity (BMI 30.0-34.9) Osteoarthritis involving multiple joints on both sides of body Polymyalgia rheumatica Prostate cancer follows with Dr Kumar and Dev, 2019 radical prostatectomy, pathological stage, pT3 b, N0 Mx, s/p combined radiation therapy/ADT with Zoladex/Casodex Urgency incontinence Urgency-frequency syndrome Surgical History (Updated 05/22/21 @ 09:16 by Fide Puri MD) History of carpal tunnel release History of left inguinal hernia repair Hx of prostatectomy ROBOTIC Hx of sinus surgery Hx of vasectomy Status post colonoscopy (02/20/20) normal - repeat 5 years , poor prep Family History Father , AT AGE 63 Cancer Diabetes Lung disease Mother , AT AGE 91 CAD (coronary artery disease) Stroke Cancer Dementia Other Suicide Denies family history of Clotting disorder Chronic kidney disease (CKD) Anesthesia complication Bleeding disorder Social History (Updated 05/22/21 @ 09:16 by Fide Puri MD) Smoking and tobacco status: never smoked Alcohol intake: never Substance/Drug Use: never Adopted: No Caregiver/support person: No Lives independently: No Household members: spouse Marital status: Current occupational status: retired Physical Exam Narrative: EXAM NARRATIVE: GENERAL/CONSTITUTIONAL - ill-appearing. no acute distress Eyes - PERRL, no conjunctival injection ENMT - Atraumatic external nose and ears. dry mucous membranes NECK - supple. trachea midline CARDIOVASCULAR - irregular and tachycardic. Peripheral pulses 2+ and equal RESPIRATORY -clear to auscultation bilaterally. No retractions or accessory muscle use. ABDOMEN/GI - Nontender/Nondistended. No tenderness to percussion or evidence of peritonitis MSK - Extremities without obvious deformity or tenderness to palpation SKIN - Warm, Dry NEURO - confused but alert. Moves all extremities equally. Course ED course: - Monitor, IV access, and vital signs obtained. - The patient was seen and evaluated by me at bedside - Initial evaluation was notable for ill appearance, AMS, likely given history suffering from urosepsis - IV fluids, antibiotics ordered - Labs notable for leukocytosis, UTI - Imaging notable for no significant finding - The results of ED evaluation were discussed with the patient including the need for inpatient management of their urosepsis. The patient verbalized understanding and was agreeable to be admitted. - Hospitalist was contacted and agreed admit the patient. - Upon serial reexamation the patient's condition was improved. They were admitted without incident or further clinical deterioration. Vital Signs: Vital signs: Vital Signs Temperature 98.6 F 05/23/21 07:51 Pulse Rate 92 05/23/21 07:51 Respiratory Rate 20 H 05/23/21 07:51 Blood Pressure 159/84 05/23/21 07:51 Pulse Oximetry 93 05/23/21 07:51 MDM - Male Medical Records: Attestation: I reviewed the patient's medical records. Lab Data: Attestation: I reviewed the patient's lab results. Labs: Lab Results 05/21/21 05/21/21 05/21/21 Range/Units 19:35 19:35 19:35 WBC 16.1 H (4.0-10.0) 10^3/ uL RBC 4.59 (4.1-5.3) 10^6/u L Hgb 13.4 (11.7-16.6) g/dL Hct 41.8 L (42.0-52.0) % MCV 91.1 (80-94) fl MCH 29.2 (28.0-34.0) pg MCHC 32.1 (30.0-36.0) g/dL RDW 13.8 (12.1-15.1) % Plt Count 189 (130-400) 10^3/c mm MPV 10.2 (7.4-10.4) fL Neut % (Auto) 80.8 % Lymph % (Auto) 10.4 % [place] % (Auto) 8.1 % Eos % (Auto) 0.0 % Baso % (Auto) 0.1 % Neut # (Auto) 13.04 H (1.8-7.7) 10^3/u L Lymph # (Auto) 1.7 (0.8-4.8) 10^3/u L [place] # (Auto) 1.3 H (0.2-0.9) 10^3/u L Eos # (Auto) 0.0 (0.0-0.8) 10^3/u L Baso # (Auto) 0.0 (0.0-0.1) 10^3/u L Nucleated RBC % (a uto) 0 % Nucleated RBCs # 0.0 /100WBC Specimen Type Sample Site ABG pH (7.35-7.45) ABG pCO2 (35-45) mmHg ABG pO2 (80.0-100.0) mmH g ABG HCO3 (22-26) mmol/L ABG Base Excess (-2.0-2.0) mmol/ L Ehsan Test Hematocrit (42-52) % O2 Delivery Device O2 Liters/Min % Gravel Screener ID Sodium 135 L (136-145) mmol/L Potassium 4.0 (3.5-5.1) mmol/L Chloride 98 (98-107) mmol/L Carbon Dioxide 25 (22-29) mmol/L Anion Gap 16.0 (5-19) BUN 18 (8-23) mg/dL Creatinine 1.0 (0.7-1.2) mg/dL GFR Calculation Not Reportable Glucose 106 (65-115) mg/dL POC Glucose (70-110) mg/dL Calculated Osmolal ity 282 L (285-295) mOsm/k g Lactate 1.3 (0.5-2.2) mmol/L Calcium 8.6 (8.5-10.5) mg/dL Total Bilirubin 1.2 (0.15-1.2) mg/dL AST 22 (0-40) U/L ALT 18 (0-41) U/L Alkaline Phosphata se 88 (40-130) IU/L Troponin T Baselin e (0-15) ng/L Troponin T 120 Min mercy (0-15) ng/L Delta Troponin T (0-10) ABS# Troponin T Hi Sens 6Hr (0-15) ng/L Troponin T Hi Sens 6Hr Delta (0-12) ng/L NT-Pro-B Natriuret Pep 9153 H (0-125) pg/mL Total Protein 6.8 (6.6-8.7) g/dL Albumin 3.9 (3.5-5.2) g/dL Globulin 2.9 (1.3-4.6) g/dL TSH 0.75 (0.27-4.20) uIU/ mL Urine Color (Yellow) Urine Appearance (CLEAR) Urine pH (5-7) Ur Specific Gravit y (1.005-1.030) Urine Protein (Negative) Urine Glucose (UA) (Normal) Urine Ketones (Negative) Urine Blood (Negative) Urine Nitrate (Negative) Urine Bilirubin (Negative) Urine Urobilinogen (Negative) mg/dL Ur Leukocyte Idalmis ase (Negative) Urine RBC (0-2) /hpf Urine WBC (0-5) /hpf Ur Squamous Epith Cells (0-5) /hpf Amorphous Sediment Urine Bacteria (NONE) /hpf Urine Mucus /hpf 05/21/21 05/21/21 05/21/21 Range/Units 19:35 19:44 20:16 WBC (4.0-10.0) 10^3/ uL RBC (4.1-5.3) 10^6/u L Hgb (11.7-16.6) g/dL Hct (42.0-52.0) % MCV (80-94) fl MCH (28.0-34.0) pg MCHC (30.0-36.0) g/dL RDW (12.1-15.1) % Plt Count (130-400) 10^3/c mm MPV (7.4-10.4) fL Neut % (Auto) % Lymph % (Auto) % [place] % (Auto) % Eos % (Auto) % Baso % (Auto) % Neut # (Auto) (1.8-7.7) 10^3/u L Lymph # (Auto) (0.8-4.8) 10^3/u L [place] # (Auto) (0.2-0.9) 10^3/u L Eos # (Auto) (0.0-0.8) 10^3/u L Baso # (Auto) (0.0-0.1) 10^3/u L Nucleated RBC % (a uto) % Nucleated RBCs # /100WBC Specimen Type Sample Site ABG pH (7.35-7.45) ABG pCO2 (35-45) mmHg ABG pO2 (80.0-100.0) mmH g ABG HCO3 (22-26) mmol/L ABG Base Excess (-2.0-2.0) mmol/ L Ehsan Test Hematocrit (42-52) % O2 Delivery Device O2 Liters/Min % Gravel Screener ID Sodium (136-145) mmol/L Potassium (3.5-5.1) mmol/L Chloride (98-107) mmol/L Carbon Dioxide (22-29) mmol/L Anion Gap (5-19) BUN (8-23) mg/dL Creatinine (0.7-1.2) mg/dL GFR Calculation Glucose (65-115) mg/dL POC Glucose 91 (70-110) mg/dL Calculated Osmolal ity (285-295) mOsm/k g Lactate (0.5-2.2) mmol/L Calcium (8.5-10.5) mg/dL Total Bilirubin (0.15-1.2) mg/dL AST (0-40) U/L ALT (0-41) U/L Alkaline Phosphata se (40-130) IU/L Troponin T Baselin e 10 (0-15) ng/L Troponin T 120 Min mercy (0-15) ng/L Delta Troponin T (0-10) ABS# Troponin T Hi Sens 6Hr (0-15) ng/L Troponin T Hi Sens 6Hr Delta (0-12) ng/L NT-Pro-B Natriuret Pep (0-125) pg/mL Total Protein (6.6-8.7) g/dL Albumin (3.5-5.2) g/dL Globulin (1.3-4.6) g/dL TSH (0.27-4.20) uIU/ mL Urine Color Yellow (Yellow) Urine Appearance Cloudy A (CLEAR) Urine pH 5 (5-7) Ur Specific Gravit y 1.015 (1.005-1.030) Urine Protein 1+ H (Negative) Urine Glucose (UA) Norm (Normal) Urine Ketones 1+ H (Negative) Urine Blood 3+ H (Negative) Urine Nitrate Negative (Negative) Urine Bilirubin 1+ H (Negative) Urine Urobilinogen 1 H (Negative) mg/dL Ur Leukocyte Idalmis ase 2+ H (Negative) Urine RBC 5-10 H (0-2) /hpf Urine WBC 40-55 H (0-5) /hpf Ur Squamous Epith Cells 5-10 H (0-5) /hpf Amorphous Sediment Not Reportable Urine Bacteria 2+ H (NONE) /hpf Urine Mucus 1+ /hpf 05/21/21 05/21/21 05/22/21 Range/Units 21:29 21:31 03:24 WBC (4.0-10.0) 10^3/ uL RBC (4.1-5.3) 10^6/u L Hgb (11.7-16.6) g/dL Hct (42.0-52.0) % MCV (80-94) fl MCH (28.0-34.0) pg MCHC (30.0-36.0) g/dL RDW (12.1-15.1) % Plt Count (130-400) 10^3/c mm MPV (7.4-10.4) fL Neut % (Auto) % Lymph % (Auto) % [place] % (Auto) % Eos % (Auto) % Baso % (Auto) % Neut # (Auto) (1.8-7.7) 10^3/u L Lymph # (Auto) (0.8-4.8) 10^3/u L [place] # (Auto) (0.2-0.9) 10^3/u L Eos # (Auto) (0.0-0.8) 10^3/u L Baso # (Auto) (0.0-0.1) 10^3/u L Nucleated RBC % (a uto) % Nucleated RBCs # /100WBC Specimen Type Arterial Sample Site Radial, right ABG pH 7.47 H (7.35-7.45) ABG pCO2 34.2 L (35-45) mmHg ABG pO2 95.7 (80.0-100.0) mmH g ABG HCO3 24.8 (22-26) mmol/L ABG Base Excess 1.5 (-2.0-2.0) mmol/ L Ehsan Test Pos Hematocrit 38.5 L (42-52) % O2 Delivery Device Nc O2 Liters/Min 2.0 % Gravel Screener ID Harkr Sodium (136-145) mmol/L Potassium (3.5-5.1) mmol/L Chloride (98-107) mmol/L Carbon Dioxide (22-29) mmol/L Anion Gap (5-19) BUN (8-23) mg/dL Creatinine (0.7-1.2) mg/dL GFR Calculation Glucose (65-115) mg/dL POC Glucose (70-110) mg/dL Calculated Osmolal ity (285-295) mOsm/k g Lactate (0.5-2.2) mmol/L Calcium (8.5-10.5) mg/dL Total Bilirubin (0.15-1.2) mg/dL AST (0-40) U/L ALT (0-41) U/L Alkaline Phosphata se (40-130) IU/L Troponin T Baselin e (0-15) ng/L Troponin T 120 Min mercy 10.05 (0-15) ng/L Delta Troponin T 0.05 (0-10) ABS# Troponin T Hi Sens 6Hr 10.77 (0-15) ng/L Troponin T Hi Sens 6Hr Delta 0.77 (0-12) ng/L NT-Pro-B Natriuret Pep (0-125) pg/mL Total Protein (6.6-8.7) g/dL Albumin (3.5-5.2) g/dL Globulin (1.3-4.6) g/dL TSH (0.27-4.20) uIU/ mL Urine Color (Yellow) Urine Appearance (CLEAR) Urine pH (5-7) Ur Specific Gravit y (1.005-1.030) Urine Protein (Negative) Urine Glucose (UA) (Normal) Urine Ketones (Negative) Urine Blood (Negative) Urine Nitrate (Negative) Urine Bilirubin (Negative) Urine Urobilinogen (Negative) mg/dL Ur Leukocyte Idalmis ase (Negative) Urine RBC (0-2) /hpf Urine WBC (0-5) /hpf Ur Squamous Epith Cells (0-5) /hpf Amorphous Sediment Urine Bacteria (NONE) /hpf Urine Mucus /hpf EKG Data: EKG 1: Attestation: I personally reviewed and interpreted this EKG as follows: EKG Data: 05/21/21 EKG interpretation time: 19:55 Interpretation: 12 lead EKG shows irregular rhythm rate 117 Normal axis Interpretation: a fib, tachycardia, afib is similar to prior EKG 2: Attestation: I personally reviewed and interpreted this EKG as follows: EKG Data: 05/21/21 EKG interpretation time: 21:40 Prior EKG tracings: available for review Interpretation: 12 lead shows irregular rhythm at rate of 103 normal axis Intrepretation: a fib, tachycardia, similar to prior Discharge Plan Discharge Patient Disposition: Admitted As Inpatient Admit Provider: Fide Puri Coding Level of Care Code ED 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
[2021-05-21 19:26] VITALS: BP 140/81; PULSE 125; RESP 18; TEMP 38.1; O2SAT 96; BMI 33.9
--- NOTE | 2021-05-21 19:30 | CTR_ITS ---
PROCEDURE INFORMATION: Exam: CT Head Without Contrast Exam date and time: 05/21/2021 7:30 PM Age: 71 years old Clinical indication: Altered mental status/memory loss; Confusion or disorientation; Additional info: AMS TECHNIQUE: Imaging protocol: Computed tomography of the head without contrast. Sagittal and coronal reformatted images were created and reviewed. Radiation optimization: All CT scans at this facility use at least one of these dose optimization techniques: automated exposure control; mA and/or kV adjustment per patient size (includes targeted exams where dose is matched to clinical indication); or iterative reconstruction. COMPARISON: No relevant prior studies available. RADIATION DOSE METRICS: Total DLP (mGy-cm): 974.51 FINDINGS: Brain: No acute intracranial hemorrhage. No acute infarct. No intra-axial or extra-axial masses. [place]-white matter differentiation is preserved. No cerebral edema. No extra-axial fluid collections. No midline shift. No evidence for Chiari 1 malformation. Mild atrophy of the brain parenchyma. Mildly decreased attenuation in the deep white matter, consistent with mild chronic microangiopathic change. Cerebral ventricles: No hydrocephalus. Paranasal sinuses: Small mucous retention cysts in the visualized right maxillary sinus and in the left sphenoid sinus. Other visualized paranasal sinuses are clear. Mastoid air cells: Small amount of fluid in the right and left mastoid air cells. Orbital cavity: Globes and lenses, extraocular muscles, and optic nerves are intact bilaterally. No acute intraorbital abnormality. Vasculature: Atherosclerotic changes in the visualized arteries. Bones/joints: Moderate right nasal septal deviation. Soft tissues: No acute abnormality of the extracranial soft tissues. CT/CT head wo con* [id number] IMPRESSION: 1. No acute abnormality of the brain. 2. Mild atrophy of the brain parenchyma. 3. Mild chronic white matter microangiopathic change. 4. Small amount of fluid in the right and left mastoid air cells. 5. Incidental/nonacute findings are listed in the report. Radiation Dose CTDIVOL = (mGy): DLP = 974.51 (mGy-cm)
--- NOTE | 2021-05-21 19:30 | XRR_ITS ---
PROCEDURE INFORMATION: Exam: XR Chest Exam date and time: 05/21/2021 7:30 PM Age: 71 years old Clinical indication: Other: AMS; Additional info: AMS, new o2 TECHNIQUE: Imaging protocol: XR of the chest. Views: 1 view. COMPARISON: CR XR chest 1V portable [id number] 09/15/2020 2:40 AM FINDINGS: Lungs: Lungs are clear bilaterally. Pleural spaces: No pleural effusion. No pneumothorax. Heart/Mediastinum: Stable moderate enlargement of the cardiac silhouette. Mediastinal contours are unremarkable. Vasculature: Stable vascular calcifications in the aorta. Bones/joints: Unremarkable for age. XR/XR chest 1V portable [id number] IMPRESSION: 1. No acute cardiopulmonary process. 2. Incidental/nonacute findings are listed in the report.
--- NOTE | 2021-05-21 19:31 | ECG_ITS ---
[facility] Test Date: 2021-05-21 Pat Name: Tom Perales Department: Room: EDIP Gender: Male Hospice Entrance Attendant: : 1950 Requested By: Abhishek Velazquez Order Number: [id number] Reading MD: RICK VIGIL Measurements Intervals [place] Rate: 117 P: MD: QRS: 89 QRSD: 98 T: 31 QT: 332 QTc: 465 Interpretive Statements ATRIAL FIBRILLATION WITH RAPID VENTRICULAR RESPONSE PROBABLE INFERIOR MYOCARDIAL INFARCTION , PROBABLY OLD [35 ms Q WAVE IN II/aVF] Compared to ECG 09/15/2020 03:08:56 Myocardial infarct finding now present T-wave abnormality no longer present Possible ischemia no longer present Electronically Signed On 05-22-2021 20:15:53 CDT by RICK VIGIL [id number]
[2021-05-21 19:50] LABS: Basophils % 0.1 %; Hematocrit 41.8 % (42.0-52.0); Hemoglobin 13.4 g/dL (11.7-16.6); Lymphocytes # 1.7 10^3/uL (0.8-4.8); Lymphocytes % 10.4 %; Mean Corpuscular HGB Conc 32.1 g/dL (30.0-36.0); Mean Corpuscular Hemoglobin 29.2 pg (28.0-34.0); Mean Corpuscular Volume 91.1 fl (80-94); Mean Platelet Volume 10.2 fL (7.4-10.4); Monocytes # 1.3 10^3/uL (0.2-0.9); Monocytes % 8.1 %; Neutrophils # 13.04 10^3/uL (1.8-7.7); Neutrophils % 80.8 %; Nucleated Red Blood Cells % 0 %; Platelet Count 189 10^3/cmm (130-400); Red Blood Count 4.59 10^6/uL (4.1-5.3); Red Cell Distribution Width 13.8 % (12.1-15.1); White Blood Count 16.1 10^3/uL (4.0-10.0)
--- NOTE | 2021-05-21 19:59 | PC.PHAR ---
PT UNABLE TO CONFIRM MEDICATIONS. PT'S STATES THAT HE TAKES CARE OF THEM HIMSELF, BUT SHE DID BRING IN THE MEDICATIONS. PT'S STATES THAT THE DOCTOR HAS RECENTLY CHANGED SOME OF HIS MEDICATION. I AM GOING BY THE BOTTLES BROUGHT IN BY PT'S .
[2021-05-21 20:05] VITALS: BP 138/67; PULSE 103; RESP 25; O2SAT 99
[2021-05-21 20:07] LABS: Lactate (Lactic Acid level) 1.3 mmol/L (0.5-2.2)
[2021-05-21] MEDS: cefepime 2,000 MG in sodium chloride 0.9% (plus) 50 ML 100 MG IV (20:08)
[2021-05-21] MEDS: lactated ringers 2,328 ML 2328 ML IV (20:08)
[2021-05-21 20:10] LABS: Troponin(5th) Baseline 10 ng/L (0-15)
[2021-05-21] MEDS: acetaminophen 325 mg Tablet 650 MG PO (20:13)
[2021-05-21 20:18] LABS: Alanine Aminotransferase 18 U/L (0-41); Albumin Level 3.9 g/dL (3.5-5.2); Alkaline Phosphatase 88 IU/L (40-130); Aspartate Amino Transferase 22 U/L (0-40); Blood Urea Nitrogen 18 mg/dL (8-23); Calcium 8.6 mg/dL (8.5-10.5); Carbon Dioxide 25 mmol/L (22-29); Chloride 98 mmol/L (98-107); Globulin 2.9 g/dL (1.3-4.6); Glucose 106 mg/dL (65-115); NT Pro B Type Natriuretic Pept 9153 pg/mL (0-125); Osmolality Calculated 282 mOsm/kg (285-295); Sodium 135 mmol/L (136-145); Thyroid Stimulating Hormone 0.75 uIU/mL (0.27-4.20); Total Bilirubin 1.2 mg/dL (0.15-1.2); Total Protein 6.8 g/dL (6.6-8.7)
[2021-05-21 21:00] VITALS: BP 154/82; PULSE 120; RESP 23; O2SAT 97
[2021-05-21 21:08] LABS: Bilirubin Urine 1+ (Negative); Blood Urine 3+ (Negative); Glucose Urine UA Norm (Normal); Ketones Urine 1+ (Negative); Leukocyte Esterase Urine 2+ (Negative); Nitrate Urine Negative (Negative); Protein Urine 1+ (Negative); Specific Gravity, Urine 1.015 (1.005-1.030); Urine Appearance Cloudy (CLEAR); Urine Color Yellow (Yellow); Urobilinogen Urine 1 mg/dL (Negative); pH Urine 5 (5-7)
[2021-05-21 21:09] LABS: Add Urine Microscopic? YES; Bacteria Urine 2+ /hpf; Mucus Urine 1+ /hpf; WBC Urine 40-55 /hpf (0-5)
[2021-05-21 21:10] LABS: Add Urine Culture? Yes
--- NOTE | 2021-05-21 21:31 | ECG_ITS ---
[facility] Test Date: 2021-05-21 Pat Name: Tom Perales Department: Room: EDIP Gender: Male Radiation Therapist: : 1950 Requested By: Abhishek Velazquez Order Number: [id number] Reading MD: RICK VIGIL Measurements Intervals [place] Rate: 103 P: NV: QRS: 67 QRSD: 116 T: 50 QT: 375 QTc: 491 Interpretive Statements ATRIAL FIBRILLATION WITH RAPID VENTRICULAR RESPONSE INFERIOR MYOCARDIAL INFARCTION , PROBABLY OLD [40+ ms Q WAVE AND/OR ST/T ABNORMALITY IN II/aVF] Compared to ECG 05/21/2021 19:49:57 No significant changes Electronically Signed On 05-22-2021 20:18:23 CDT by RICK VIGIL [id number]
[2021-05-21 21:40] LABS: ABG PCO2 34.2 mmHg (35-45); ABG PH Result 7.47 (7.35-7.45); Arterial Blood Gas Hematocrit 38.5 % (42-52); Base Excess ABG 1.5 mmol/L (-2.0-2.0); Blood Gas Allen Test Pos; Blood Gas Operator Identificat HARKR; Blood Gas Sample Site Radial, right; Blood Gas Sample Type Arterial; HCO3 ABG 24.8 mmol/L (22-26); Oxygen Device NC; PO2 ABG 95.7 mmHg (80.0-100.0)
[2021-05-21 21:59] VITALS: BP 151/84; PULSE 97; RESP 21; O2SAT 96
[2021-05-21 22:05] LABS: Troponin 5 2HR 10.05 ng/L (0-15); Troponin 5 2HR Delta 0.05 ABS# (0-10)
[2021-05-21 23:00] VITALS: BP 145/70; PULSE 94; RESP 24; O2SAT 97
--- NOTE | 2021-05-21 23:52 | PM.HP ---
Providers/Chief Complaint Admitting Physician: Fide Puri MD Primary Care Provider: Pablito Winslow MD Chief Complaint: UTI History of Present Illness Tom Perales is a 71 year old male who presented to the emergency room with altered mental status and fever. He has been sick for the last several days. He initially had symptoms of urinary frequency and dysuria. He started not drinking as much to decrease fluid intake with hopes of not having to urinate so much. He was seen in family medicine clinic on May 19. Urinalysis at that time showed specific gravity of 1.030, pH 5.5, large blood with positive leukocyte esterase, negative nitrites and positive bacteria. He was started on Bactrim as well as some Pyridium given the significant pain he was having. He had no fever then. He has not had symptoms this significant that either he or his recall. He does have a history of prostate cancer and is followed by Dr. Kumar as well as Dr. Méndez. He underwent prostatectomy previously. He has had chronic urinary urgency and frequency but from what I can gather on review of records has not tolerated different medications that have been tried. He was seen in December of this year at the cancer treatment center and PSA at the time it was low. Does not look like he has had urinary tract infection at least documented our organization dating back as far as 2019. I was able to find some records from Dr. Kumar's office that indicated after his prostate surgery he did have urine infection with Pseudomonas and enteric coccus that were both sensitive to fluoroquinolones. In the 24-48 hours prior to him presenting to the emergency room he continued to worsen and developed fevers at home. He had episodes of being minimally responsive, was extremely weak and not able to attend to his activities of daily living. Him and his both do acknowledge that he had been having some diarrhea for a few days. He has not felt like eating much.He was unresponsive to enough in the emergency room and a CT of the head was done and did not show any abnormalities. Chest x-ray did not show any evidence of acute process. Urinalysis was suggestive of urine infection despite him having been on Bactrim for a few days. With his symptoms, history and clinical findings he is being admitted for further treatment as indicated. He was started on cefepime in the emergency room secondary to concern about resistant organisms given his history. Review of Systems Const: Reports: fever(s), chills, change in appetite, change in weight, fatigue and malaise ENMT: Denies: throat pain or nasal congestion Card: Denies: chest pain, palpitations or edema Resp: Denies: dyspnea, productive cough or non-productive cough GI: Denies: abdominal pain, nausea, vomiting, diarrhea or constipation : Reports: dysuria, urinary frequency, urinary urgency, urinary dribbling and urinary incontinence; Denies: flank pain, change in urine stream or hematuria Musc: Reports: muscle weakness Skin/Breast: Denies: rash or sores Neuro: Denies: headache(s) or difficulty walking Psych: Reports: depression; Denies: anxiety Cesar/Lymph: Denies: easy bruising or easy bleeding Medications/Allergies Home Medications Medication Instructions Recorded Confirmed Last Taken Type antiarthritic combination no.2 900 900 mg PO DAILY 10/22/19 05/21/21 11/29/20 20:00 History mg tablet aspirin 81 mg tablet,delayed 81 mg PO DAILY 10/22/19 05/21/21 05/21/21 History release losartan 50 mg tablet 50 mg PO DAILY 10/22/19 05/21/21 05/21/21 History omega-3 fatty acids 1,000 mg 1,000 mg PO DAILY 10/22/19 05/21/21 11/29/20 20:00 History capsule multivitamin 1 tab PO DAILY 12/04/19 05/21/21 11/29/20 20:00 History rivaroxaban 20 mg tablet 20 mg PO DAILY 12/04/19 05/21/21 05/20/21 History amlodipine [Norvasc] 5 mg PO DAILY #0 tab 08/22/20 05/21/21 05/21/21 Rx simvastatin 40 mg tablet 40 mg PO DAILY 09/07/20 05/21/21 05/21/21 History furosemide 20 mg tablet 20 mg PO DAILY #90 tab 05/13/21 05/21/21 05/21/21 Rx sulfamethoxazole 800 1 tab PO BID #14 tab 05/19/21 05/21/21 05/21/21 Rx mg-trimethoprim 160 mg tablet carvedilol 3.125 mg PO BID 05/21/21 05/21/21 05/21/21 History hydrochlorothiazide 12.5 mg PO DAILY 05/21/21 05/21/21 05/21/21 History metoprolol tartrate 50 mg PO BID 05/21/21 05/21/21 Unknown History tramadol 50 mg PO TID PRN 05/21/21 05/21/21 Unknown History Allergies Allergy/AdvReac Type Severity Reaction Status Date / Time No Known Allergies Allergy Verified 05/19/21 09:54 PFSH Acute PFSH: Medical History (Updated 05/22/21 @ 09:31 by Fide Puri MD) Chronic kidney disease (CKD) stage G2/A1, mildly decreased glomerular filtration rate (GFR) between 60-89 mL/min/1.73 square meter and albuminuria creatinine ratio less than 30 mg/g COVID-19 (~06/2020) Erectile dysfunction Follicular lymphoma Hyperlipidemia Hypertension Leg edema Obesity (BMI 30.0-34.9) Osteoarthritis involving multiple joints on both sides of body Polymyalgia rheumatica Prostate cancer follows with Dr Kumar and Dev, 2019 radical prostatectomy, pathological stage, pT3 b, N0 Mx, s/p combined radiation therapy/ADT with Zoladex/Casodex Urgency incontinence Urgency-frequency syndrome Surgical History (Updated 05/22/21 @ 09:16 by Fide Puri MD) History of carpal tunnel release History of left inguinal hernia repair Hx of prostatectomy ROBOTIC Hx of sinus surgery Hx of vasectomy Status post colonoscopy (02/20/20) normal - repeat 5 years , poor prep Family History Father , AT AGE 63 Cancer Diabetes Lung disease Mother , AT AGE 91 CAD (coronary artery disease) Stroke Cancer Dementia Other Suicide Denies family history of Clotting disorder Chronic kidney disease (CKD) Anesthesia complication Bleeding disorder Social History (Updated 05/22/21 @ 09:16 by Fide Puri MD) Smoking and tobacco status: never smoked Alcohol intake: never Substance/Drug Use: never Adopted: No Caregiver/support person: No Lives independently: No Household members: spouse Marital status: Current occupational status: retired Vitals/I&O/Wt Last Vital Signs Temp 100.5 F H 05/21/21 19:26 Pulse 94 05/21/21 23:00 Resp 24 H 05/21/21 23:00 BP 145/70 05/21/21 23:00 Pulse Ox 97 05/21/21 23:00 Weight last 48 hrs Weight 113.398 kg Physical Exam Narrative: EXAM NARRATIVE: Constitutional: Sleepy, ill-appearing, will awaken and answer questions HEENT: Pupils are reactive, conjunctive injected, nasopharynx is clear, oropharynx with dry mucous membranes Neck: Large but supple Respiratory: Clear to auscultation bilaterally Cardiovascular: Irregularly irregular rhythm Abdomen: Soft, obese, no flank pain, no suprapubic or other tenderness, positive bowel sounds Extremities: 1+ pitting edema distally Skin: Skin is dry, chronic changes noted to legs, no acute rashes noted Neuro: Speech clear, face symmetric, extraocular movements are intact, generally weak but can move all extremities Data : 05/21/21 19:35 05/21/21 19:35 Micro: Microbiology 05/21/21 20:06 Blood Culture - Preliminary Blood SPECIMEN COLLECTED 05/21/21 19:35 Blood Culture - Preliminary Blood SPECIMEN COLLECTED Other data: Laboratory Results WBC 16.1 10^3/uL (4.0-10.0) H 05/21/21 19:35 RBC 4.59 10^6/uL (4.1-5.3) 05/21/21 19:35 Hgb 13.4 g/dL (11.7-16.6) 05/21/21 19:35 Hct 41.8 % (42.0-52.0) L 05/21/21 19:35 MCV 91.1 fl (80-94) 05/21/21 19:35 MCH 29.2 pg (28.0-34.0) 05/21/21 19:35 MCHC 32.1 g/dL (30.0-36.0) 05/21/21 19:35 RDW 13.8 % (12.1-15.1) 05/21/21 19:35 Plt Count 189 10^3/cmm (130-400) 05/21/21 19:35 MPV 10.2 fL (7.4-10.4) 05/21/21 19:35 Neut % (Auto) 80.8 % 05/21/21 19:35 Lymph % (Auto) 10.4 % 05/21/21 19:35 [place] % (Auto) 8.1 % 05/21/21 19:35 Eos % (Auto) 0.0 % 05/21/21 19:35 Baso % (Auto) 0.1 % 05/21/21 19:35 Neut # (Auto) 13.04 10^3/uL (1.8-7.7) H 05/21/21 19:35 Lymph # (Auto) 1.7 10^3/uL (0.8-4.8) 05/21/21 19:35 [place] # (Auto) 1.3 10^3/uL (0.2-0.9) H 05/21/21 19:35 Eos # (Auto) 0.0 10^3/uL (0.0-0.8) 05/21/21 19:35 Baso # (Auto) 0.0 10^3/uL (0.0-0.1) 05/21/21 19:35 Nucleated RBC % (auto) 0 % 05/21/21 19:35 Nucleated RBCs # 0.0 /100WBC 05/21/21 19:35 Specimen Type Arterial 05/21/21 21:29 Sample Site Radial, right 05/21/21 21:29 ABG pH 7.47 (7.35-7.45) H 05/21/21 21:29 ABG pCO2 34.2 mmHg (35-45) L 05/21/21 21:29 ABG pO2 95.7 mmHg (80.0-100.0) 05/21/21 21:29 ABG HCO3 24.8 mmol/L (22-26) 05/21/21 21:29 ABG Base Excess 1.5 mmol/L (-2.0-2.0) 05/21/21 21:29 Ehsan Test Pos 05/21/21 21:29 Hematocrit 38.5 % (42-52) L 05/21/21 21:29 O2 Delivery Device Nc 05/21/21 21:29 O2 Liters/Min 2.0 % 05/21/21 21:29 Machine Coremaker ID Harkr 05/21/21 21:29 Sodium 135 mmol/L (136-145) L 05/21/21 19:35 Potassium 4.0 mmol/L (3.5-5.1) 05/21/21 19:35 Chloride 98 mmol/L (98-107) 05/21/21 19:35 Carbon Dioxide 25 mmol/L (22-29) 05/21/21 19:35 Anion Gap 16.0 (5-19) 05/21/21 19:35 BUN 18 mg/dL (8-23) 05/21/21 19:35 Creatinine 1.0 mg/dL (0.7-1.2) 05/21/21 19:35 GFR Calculation Not Reportable 05/21/21 19:35 Glucose 106 mg/dL (65-115) 05/21/21 19:35 Calculated Osmolality 282 mOsm/kg (285-295) L 05/21/21 19:35 Lactate 1.3 mmol/L (0.5-2.2) 05/21/21 19:35 Calcium 8.6 mg/dL (8.5-10.5) 05/21/21 19:35 Total Bilirubin 1.2 mg/dL (0.15-1.2) 05/21/21 19:35 AST 22 U/L (0-40) 05/21/21 19:35 ALT 18 U/L (0-41) 05/21/21 19:35 Alkaline Phosphatase 88 IU/L (40-130) 05/21/21 19:35 Troponin T Baseline 10 ng/L (0-15) 05/21/21 19:35 Troponin T 120 Minute 10.05 ng/L (0-15) 05/21/21 21:31 Delta Troponin T 0.05 ABS# (0-10) 05/21/21 21:31 NT-Pro-B Natriuret Pep 9153 pg/mL (0-125) H 05/21/21 19:35 Total Protein 6.8 g/dL (6.6-8.7) 05/21/21 19:35 Albumin 3.9 g/dL (3.5-5.2) 05/21/21 19:35 Globulin 2.9 g/dL (1.3-4.6) 05/21/21 19:35 TSH 0.75 uIU/mL (0.27-4.20) 05/21/21 19:35 Urine Color Yellow (Yellow) 05/21/21 20:16 Urine Appearance Cloudy (CLEAR) A 05/21/21 20:16 Urine pH 5 (5-7) 05/21/21 20:16 Ur Specific [place] 1.015 (1.005-1.030) 05/21/21 20:16 Urine Protein 1+ (Negative) H 05/21/21 20:16 Urine Glucose (UA) Norm (Normal) 05/21/21 20:16 Urine Ketones 1+ (Negative) H 05/21/21 20:16 Urine Blood 3+ (Negative) H 05/21/21 20:16 Urine Nitrate Negative (Negative) 05/21/21 20:16 Urine Bilirubin 1+ (Negative) H 05/21/21 20:16 Urine Urobilinogen 1 mg/dL (Negative) H 05/21/21 20:16 Ur Leukocyte Esterase 2+ (Negative) H 05/21/21 20:16 Urine RBC 5-10 /hpf (0-2) H 05/21/21 20:16 Urine WBC 40-55 /hpf (0-5) H 05/21/21 20:16 Ur Squamous Epith Cells 5-10 /hpf (0-5) H 05/21/21 20:16 Amorphous Sediment Not Reportable 05/21/21 20:16 Urine Bacteria 2+ /hpf (NONE) H 05/21/21 20:16 Urine Mucus 1+ /hpf 05/21/21 20:16 Impressions Chest X-Ray 05/21/21 19:30 IMPRESSION: 1. No acute cardiopulmonary process. 2. Incidental/nonacute findings are listed in the report. Head CT 05/21/21 19:30 IMPRESSION: 1. No acute abnormality of the brain. 2. Mild atrophy of the brain parenchyma. 3. Mild chronic white matter microangiopathic change. 4. Small amount of fluid in the right and left mastoid air cells. 5. Incidental/nonacute findings are listed in the report. Radiation Dose CTDIVOL = (mGy): DLP = 974.51 (mGy-cm) A&P Assessment and plan (1) Toxic encephalopathy: Status: Acute (2) UTI (urinary tract infection): Status: Acute Qualifiers: Urinary tract infection type: acute cystitis Hematuria presence: without hematuria Qualified Code(s): N30.00 - Acute cystitis without hematuria (3) Prostate cancer: Status: Chronic (4) Urgency-frequency syndrome: Status: Chronic (5) Chronic kidney disease (CKD) stage G2/A1, mildly decreased glomerular filtration rate (GFR) between 60-89 mL/min/1.73 square meter and albuminuria creatinine ratio less than 30 mg/g: Status: Chronic (6) Systolic CHF: Status: Chronic Qualifiers: Heart failure chronicity: chronic Qualified Code(s): I50.22 - Chronic systolic (congestive) heart failure (7) Atrial fibrillation: Status: Chronic Qualifiers: Atrial fibrillation type: longstanding persistent Qualified Code(s): I48.11 - Longstanding persistent atrial fibrillation (8) Chronic anticoagulation: Status: Chronic (9) Hypertension: Status: Chronic Qualifiers: Hypertension type: unspecified Qualified Code(s): I10 - Essential (primary) hypertension Additional A&P Information Inpatient admission IV fluids currently Anticipate resumption of oral diuretics in a day or so if improving, sooner if develops significant volume overload Continue cefepime Follow-up pending urine culture Blood cultures were collected Send stool for C. difficile secondary to report of diarrhea Tylenol for fever control Continue home aspirin, carvedilol and statin therapy Continue home rivaroxaban Monitor overall volume status Telemetry monitoring Serial cardiac enzymes Limited echocardiogram to check ejection fraction Has a history of hypertension and current home medication list indicates that he is on amlodipine, carvedilol, metoprolol, Lasix, hydrochlorothiazide, losartan; suspect that there are some inaccuracies in this list based on duplicity of therapy and we will try to clarify today hopefully with both him and his able to contribute to the process plus or minus input from pharmacy. Monitor blood pressures for need to add additional medications from this list. Supportive care otherwise PPI for GI prophylaxis Xarelto will provide VTE prophylaxis Findings, concerns and plans were discussed with patient as well as his and both were given opportunity to ask questions Anticipate discharge back home when stable Full code Attestations Medical Necessity Statement*: Anticipated stay greater than 2 midnights in this gentleman with urinary tract infection that has not adequately responded to outpatient management as described. He is being admitted for IV antibiotics and other care as indicated. He had significant alteration of mental status associated with fever. He has a history of prostate cancer status post radical prostatectomy. He has had chronic urgency frequency since surgery but presentation in the last couple of days is uniquely different for from what him and his describe. Coding Level of Care Code Acute [employer] for [facility] Carmela Diagnoses Toxic encephalopathy G92 UTI (urinary tract infection) N30.00 Urinary tract infection type: acute cystitis Hematuria presence: without hematuria Prostate cancer C61 Urgency-frequency syndrome N32.81 Chronic kidney disease (CKD) stage G2/A1, mildly decreased glomerular filtration rate (GFR) between 60-89 mL/min/1.73 square meter and albuminuria creatinine ratio less than 30 mg/g N18.2 Systolic CHF I50.22 Heart failure chronicity: chronic Atrial fibrillation I48.11 Atrial fibrillation type: longstanding persistent Chronic anticoagulation Z79.01 Hypertension I10 Hypertension type: unspecified
[2021-05-22] VITALS (16 sets, daily range): BP systolic 105–155; BP diastolic 61–87; PULSE 89–121; RESP 14–24; TEMP 37–39.2; O2SAT 93–98; BMI 34.2
[2021-05-22] MEDS: morphine 4 mg/mL SDV 1 mL IVP (02:38)
[2021-05-22] MEDS: ondansetron 2 mg/ML SDV 2 mL 4 MG IVP (02:40)
[2021-05-22] MEDS: acetaminophen 500 mg Tablet 1000 MG PO (02:40)
[2021-05-22 03:53] LABS: Troponin 5 6HR 10.77 ng/L (0-15); Troponin 5 6HR Delta 0.77 ng/L (0-12)
--- NOTE | 2021-05-22 06:18 | USCV_ITS ---
Tmo Perales Age: 71 Gender: M : 1950 Exam Date: 05/22/2021 08:38 Ordering Phys: Fide Puri MD Technologist: Kamilla Quintanilla [place] [facility] [place]ication: Elevated bnp, h/o CAD BP: 112 / 69 HR: 79 Rhythm: Atrial fibrillation Technical Quality: Technically difficult study MEASUREMENTS (Male / Female) Normal Values 2D ECHO LV Diastolic Diameter PLAX 4.9 cm 4.2 - 5.9 / 3.9 - 5.3 cm LV Systolic Diameter PLAX 3.9 cm LV Chamber Size 5.1 cm IVS Diastolic Thickness 1.3 cm 0.6 - 1.0 / 0.6 - 0.9 cm IVS Systolic Thickness 1.6 cm LVPW Diastolic Thickness 1.2 cm 0.6 - 1.0 / 0.6 - 0.9 cm LVPW Systolic Thickness 1.1 cm RV Chamber Size 3.0 cm LA Width 3.7 cm LA Height 6.8 cm RA Width 4.4 cm RA Height 7.1 cm M-MODE LV Diastolic Diameter MM 6.7 cm 4.2 - 5.9 / 3.9 - 5.3 cm LV Systolic Diameter MM 5.1 cm IVS Diastolic Thickness MM 1.5 cm 0.6 - 1.0 / 0.6 - 0.9 cm IVS Systolic Thickness MM 1.5 cm LVPW Diastolic Thickness MM 1.6 cm 0.6 - 1.0 / 0.6 - 0.9 cm LVPW Systolic Thickness MM 1.4 cm FINDINGS Left Ventricle Normal left ventricular cavity size. Normal left ventricular systolic function. No regional wall motion abnormalities. Left ventricular ejection fraction is estimated at 55 %. Right Ventricle The right ventricle is normal in size and function. Right Atrium The right atrium is normal in size. Left Atrium The left atrium is normal in size. Mitral Valve Moderately thickened mitral valve. Moderate mitral annular calcification. No mitral valve stenosis. Aortic Valve Structurally normal aortic valve without significant sclerosis or stenosis. Tricuspid Valve Structurally normal tricuspid valve without significant stenosis Pulmonic Valve Structurally normal pulmonic valve without significant stenosis. Pericardium Normal pericardium without effusion. Aorta Normal ascending aorta dimension. CONCLUSIONS 1-Normal left ventricular cavity size. Normal left ventricular systolic function. No regional wall motion abnormalities. Left ventricular ejection fraction is estimated at 55 %. 2-Moderately thickened mitral valve. Moderate mitral annular calcification. No mitral valve stenosis. 3-Structurally normal aortic valve without significant sclerosis or stenosis. 4-Structurally normal tricuspid valve without significant stenosis. 5-Structurally normal pulmonic valve without significant stenosis. 6-Right atrial pressure is around 5 mm of mercury. 7-When compared to the prior echocardiogram dated October 01, 2020 this is a limited study without hemodynamic data therefore cannot be comparable however it appeared to me the left ventricle ejection fraction has improved from severely reduced 33% to normal 55% now. Jessica Salinas MD (Electronically Signed) Final Date: 22 May 2021 17:30 S
[2021-05-22] MEDS: D5-NS 0.45% + KCL 20 mEq 20 MEQ/1,000 ML BAG 75 MEQ IV (07:24)
[2021-05-22] MEDS: cefepime 1,000 MG in sodium chloride 0.9% (plus) 50 ML 100 MG IV ×2 (07:24→20:19)
--- NOTE | 2021-05-22 08:55 | CTR_ITS ---
PROCEDURE INFORMATION: Exam: CT Abdomen And Pelvis Without Contrast Exam date and time: 05/22/2021 8:55 AM Age: 71 years old Clinical indication: Prior prostate surgery for cancer. History of fever, urinary frequency and dysuria. Urinary tract infection. TECHNIQUE: Imaging protocol: Computed tomography of the abdomen and pelvis without contrast. Radiation optimization: All CT scans at this facility use at least one of these dose optimization techniques: automated exposure control; mA and/or kV adjustment per patient size (includes targeted exams where dose is matched to clinical indication); or iterative reconstruction. COMPARISON: CT Chest/Abdomen/Pelvis w IV* 04/23/2018 11:28 AM RADIATION DOSE METRICS: Total DLP (mGy-cm): 1998.08 FINDINGS: Lungs: Patchy consolidation in the left lower lobe suspicious for pneumonia. Trace right pleural effusion. The heart is enlarged. Coronary arterial calcifications are seen. The blood pool is low in attenuation relative to the cardiac muscle suggesting anemia. Trace pericardial fluid. Small hiatal hernia. Liver: The liver is enlarged measuring 17.5 cm. Gallbladder and bile ducts: The gallbladder is unremarkable. Pancreas: The pancreas is unremarkable. Spleen: The spleen is enlarged measuring 14.5 cm. Adrenal glands: The adrenal glands are unremarkable. Kidneys and ureters: There is increased perinephric stranding bilaterally that could reflect pyelonephritis. Stomach and bowel: The stomach and small bowel are unremarkable.; Occasional colonic diverticula without evidence of acute diverticulitis. Appendix: The appendix is unremarkable. Intraperitoneal space: No free intraperitoneal air is seen. There is stranding surrounding a fat lobule adjacent to the sigmoid colon suspicious for epiploic appendagitis. Vasculature: No abdominal aortic aneurysm. Lymph nodes: No retroperitoneal lymphadenopathy. Urinary bladder: The bladder wall is thickened with adjacent edema. Reproductive: The prostate has been removed. Bones/joints: No acute fracture is seen. Soft tissues: Small fat containing umbilical hernia. CT/CT abdomen pelvis wo con [id number] IMPRESSION: 1. Increased perinephric stranding bilaterally that could reflect pyelonephritis. The bladder wall is thickened suspicious for cystitis. Correlate with urinalysis. 2. Left lower lobe pneumonia. 3. Stranding a surrounding a fat lobule adjacent to the sigmoid colon suspicious for epiploic appendagitis. 4. Hepatosplenomegaly. 5. Cardiomegaly with coronary artery disease and trace right pleural effusion. 6. Probable anemia. 7. Occasional colonic diverticula without evidence of acute diverticulitis. Radiation Dose CTDIVOL = (mGy): DLP = 1998.08 (mGy-cm)
[2021-05-22] MEDS: rivaroxaban 10 mg Tablet 20 MG PO (09:50)
[2021-05-22] MEDS: carvedilol 3.125 mg Tablet PO ×2 (09:51→20:19)
[2021-05-22] MEDS: pantoprazole DR 40 mg Tablet PO (09:51)
[2021-05-22] MEDS: atorvastatin 40 mg Tablet 20 MG PO (09:51)
[2021-05-22] MEDS: aspirin 81 mg EC Tablet PO (09:52)
--- NOTE | 2021-05-22 13:38 | P.PN_ITS ---
Subjective Subjective: Interval history: Patient was seen this morning, is at bedside, is alert to person, to place, to the month, not to the year, knows the president, he follows all commands, he tells me that he is here in the hospital because he has been feeling weak, he had a fall over 3 weeks ago, he is also been more confused, according to family members, no nausea, no bruit, no diar james, no shortness of breath, he did have Covid many months ago, has received Covid vaccine since then Vitals/I&O/Wt Last Vital Signs Temp 98.6 F 05/22/21 10:07 Pulse 98 05/22/21 13:10 Resp 18 05/22/21 13:10 BP 155/80 05/22/21 13:10 Pulse Ox 98 05/22/21 13:10 05/21/21 05/22/21 05/22/21 22:59 06:59 14:59 Intake Total 2378 / 2378 107.5 / 107.5 Balance 2378 / 2378 107.5 / 107.5 Weight last 48 hrs Weight 113.398 kg Physical Exam Const: COMMON NORMALS: no acute distress ORIENTATION/CONSCIOUSNESS: Yes awake, Yes oriented to person and Yes oriented to place; not oriented to time Resp: COMMON NORMALS: normal respiratory effort, No retractions, No use of accessory muscles and clear to auscultation bilaterally AUSCULTATION: clear to auscultation bilaterally Cardio: COMMON NORMALS: regular rate, regular rhythm, S1 normal heart sound present and S2 normal heart sound present RATE: regular rate RHYTHM: regular rhythm HEART SOUNDS: S1 normal heart sound present and S2 normal heart sound present GI: COMMON NORMALS: Normal to inspection, nondistended, normoactive bowel sounds present, Soft to palpation and non-tender PALPATION: Yes Soft to palpation Extremity: COMMON NORMALS: no pedal edema Neuro: SENSORIUM/ORIENTATION: Yes oriented to person, Yes oriented to place and No oriented to time Psych: COMMON NORMALS: mental status grossly normal Data : 05/21/21 19:35 05/21/21 19:35 Micro: Microbiology 05/21/21 20:06 Blood Culture - Preliminary Blood SPECIMEN COLLECTED 05/21/21 19:35 Blood Culture - Preliminary Blood SPECIMEN COLLECTED A&P Assessment and plan (1) Toxic encephalopathy: -Secondary to UTI, dehydration -Mentation is improving -Continue antibiotics, fluids as below Status: Acute (2) UTI (urinary tract infection): -Has a history of Pseudomonas UTI, status post prostatectomy for prostate cancer -Continue cefepime -We will do CT scan abdomen pelvis to evaluate for possible pyelonephritis, obstructive uropathy -Follow blood cultures, urine cultures Status: Acute Qualifiers: Urinary tract infection type: acute cystitis Hematuria presence: without hematuria Qualified Code(s): N30.00 - Acute cystitis without hematuria (3) Prostate cancer: Status: Chronic (4) Urgency-frequency syndrome: Status: Chronic (5) Chronic kidney disease (CKD) stage G2/A1, mildly decreased glomerular filtration rate (GFR) between 60-89 mL/min/1.73 square meter and albuminuria creatinine ratio less than 30 mg/g: Status: Chronic (6) Systolic CHF: BNP is elevated at 9153, does not look clinically fluid overloaded, continue home Lasix, follow repeat echocardiogram Status: Chronic Qualifiers: Heart failure chronicity: chronic Qualified Code(s): I50.22 - Chronic systolic (congestive) heart failure (7) Atrial fibrillation: Continue home Coreg, Xarelto Status: Chronic Qualifiers: Atrial fibrillation type: longstanding persistent Qualified Code(s): I48.11 - Longstanding persistent atrial fibrillation (8) Chronic anticoagulation: Status: Chronic (9) Hypertension: Status: Chronic Qualifiers: Hypertension type: unspecified Qualified Code(s): I10 - Essential (primary) hypertension Additional A&P Information Send stool for C. difficile secondary to report of diarrhea Tylenol for fever control Continue home aspirin, carvedilol and statin therapy Continue home rivaroxaban Monitor overall volume status Telemetry monitoring Limited echocardiogram to check ejection fraction Has a history of hypertension and current home medication list indicates that he is on amlodipine, carvedilol, metoprolol, Lasix, hydrochlorothiazide, losartan; suspect that there are some inaccuracies in this list based on duplicity of therapy and we will try to clarify today hopefully with both him and his able to contribute to the process plus or minus input from pharmacy. Monitor blood pressures for need to add additional medications from this list. 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[employer] Diagnoses Toxic encephalopathy G92 UTI (urinary tract infection) N30.00 Urinary tract infection type: acute cystitis Hematuria presence: without hematuria Prostate cancer C61 Urgency-frequency syndrome N32.81 Chronic kidney disease (CKD) stage G2/A1, mildly decreased glomerular filtration rate (GFR) between 60-89 mL/min/1.73 square meter and albuminuria creatinine ratio less than 30 mg/g N18.2 Systolic CHF I50.22 Heart failure chronicity: chronic Atrial fibrillation I48.11 Atrial fibrillation type: longstanding persistent Chronic anticoagulation Z79.01 Hypertension I10 Hypertension type: unspecified
[2021-05-22] MEDS: pneumococcal (23 valent) SDV 0.5 mL IM (17:26)
[2021-05-22 20:38] LABS: Basophils % 0.2 %; Hematocrit 37.2 % (42.0-52.0); Hemoglobin 11.8 g/dL (11.7-16.6); Lymphocytes # 1.1 10^3/uL (0.8-4.8); Lymphocytes % 9.4 %; Mean Corpuscular HGB Conc 31.7 g/dL (30.0-36.0); Mean Corpuscular Hemoglobin 28.2 pg (28.0-34.0); Mean Corpuscular Volume 88.8 fl (80-94); Mean Platelet Volume 10.6 fL (7.4-10.4); Monocytes # 1.1 10^3/uL (0.2-0.9); Monocytes % 8.8 %; Neutrophils # 9.72 10^3/uL (1.8-7.7); Neutrophils % 81.2 %; Nucleated Red Blood Cells % 0 %; Platelet Count 176 10^3/cmm (130-400); Red Blood Count 4.19 10^6/uL (4.1-5.3); Red Cell Distribution Width 13.7 % (12.1-15.1)
[2021-05-22 21:00] LABS: Blood Urea Nitrogen 17 mg/dL (8-23); Calcium 8.2 mg/dL (8.5-10.5); Carbon Dioxide 25 mmol/L (22-29); Chloride 103 mmol/L (98-107); Glucose 115 mg/dL (65-115); Magnesium 2.1 mg/dL (1.7-2.3); Osmolality Calculated 286 mOsm/kg (285-295); Phosphorus 2.1 mg/dL (2.5-4.5); Sodium 137 mmol/L (136-145)
[2021-05-23] VITALS (7 sets, daily range): BP systolic 122–159; BP diastolic 68–94; PULSE 72–121; RESP 18–21; TEMP 36.8–39.6; O2SAT 92–97
[2021-05-23] MEDS: acetaminophen 325 mg Tablet 650 MG PO (00:02)
[2021-05-23 05:59] LABS: Eosinophils % 0.2 %; Hemoglobin 11.8 g/dL (11.7-16.6); Lymphocytes # 1.4 10^3/uL (0.8-4.8); Lymphocytes % 13.2 %; Mean Corpuscular HGB Conc 31.9 g/dL (30.0-36.0); Mean Corpuscular Hemoglobin 28.9 pg (28.0-34.0); Mean Corpuscular Volume 90.7 fl (80-94); Mean Platelet Volume 11.1 fL (7.4-10.4); Monocytes # 1.2 10^3/uL (0.2-0.9); Monocytes % 10.9 %; Neutrophils # 8.18 10^3/uL (1.8-7.7); Neutrophils % 75.2 %; Nucleated Red Blood Cells % 0 %; Platelet Count 156 10^3/cmm (130-400); Red Blood Count 4.08 10^6/uL (4.1-5.3); Red Cell Distribution Width 13.8 % (12.1-15.1); White Blood Count 10.9 10^3/uL (4.0-10.0)
[2021-05-23 06:22] LABS: Alanine Aminotransferase 14 U/L (0-41); Albumin Level 3.1 g/dL (3.5-5.2); Alkaline Phosphatase 85 IU/L (40-130); Anion Gap 9.9 (5-19); Aspartate Amino Transferase 20 U/L (0-40); Blood Urea Nitrogen 16 mg/dL (8-23); Calcium 8.2 mg/dL (8.5-10.5); Carbon Dioxide 27 mmol/L (22-29); Chloride 102 mmol/L (98-107); Globulin 2.7 g/dL (1.3-4.6); Glucose 89 mg/dL (65-115); Magnesium 2.3 mg/dL (1.7-2.3); Osmolality Calculated 281 mOsm/kg (285-295); Potassium 3.9 mmol/L (3.5-5.1); Sodium 135 mmol/L (136-145); Total Bilirubin 0.7 mg/dL (0.15-1.2); Total Protein 5.8 g/dL (6.6-8.7)
[2021-05-23 07:57] LABS: Glucose Point of Care 91 mg/dL (70-110)
[2021-05-23 08:08] LABS: Glucose Point of Care 92 mg/dL (70-110)
[2021-05-23 08:08] LABS: Glucose Point of Care 123 mg/dL (70-110)
[2021-05-23] MEDS: aspirin 81 mg EC Tablet PO (09:40)
[2021-05-23] MEDS: atorvastatin 40 mg Tablet 20 MG PO (09:40)
[2021-05-23] MEDS: pantoprazole DR 40 mg Tablet PO (09:40)
[2021-05-23] MEDS: cefepime 1,000 MG in sodium chloride 0.9% (plus) 50 ML 100 MG IV ×2 (09:40→21:13)
[2021-05-23] MEDS: rivaroxaban 10 mg Tablet 20 MG PO (09:41)
[2021-05-23] MEDS: carvedilol 3.125 mg Tablet PO ×2 (09:41→21:17)
--- NOTE | 2021-05-23 14:46 | PM.PN ---
Subjective Subjective: Interval history: Patient was seen this morning he sitting up to the side of bed, he tells me that he is feeling better, no nausea, no vomiting Vitals/I&O/Wt Last Vital Signs Temp 98.6 F 05/23/21 07:51 Pulse 92 05/23/21 07:51 Resp 20 H 05/23/21 07:51 BP 159/84 05/23/21 07:51 Pulse Ox 93 05/23/21 07:51 05/22/21 05/23/21 05/23/21 22:59 06:59 14:59 Intake Total 50 / 207.5 160 / 367.5 50 / 50 Balance 50 / 207.5 160 / 367.5 50 / 50 Weight last 48 hrs Weight 117.934 kg Weight 113.398 kg Physical Exam Const: COMMON NORMALS: no acute distress and patient oriented x3 Resp: COMMON NORMALS: normal respiratory effort, No retractions, No use of accessory muscles and clear to auscultation bilaterally AUSCULTATION: clear to auscultation bilaterally Cardio: COMMON NORMALS: regular rate, regular rhythm, S1 normal heart sound present and S2 normal heart sound present RATE: regular rate RHYTHM: regular rhythm HEART SOUNDS: S1 normal heart sound present and S2 normal heart sound present GI: COMMON NORMALS: Normal to inspection, nondistended, normoactive bowel sounds present, Soft to palpation and non-tender PALPATION: Yes Soft to palpation Extremity: COMMON NORMALS: no pedal edema Neuro: COMMON NORMALS: patient oriented x3 Psych: COMMON NORMALS: mental status grossly normal Data : 05/23/21 05:04 05/23/21 05:04 Micro: Microbiology 05/21/21 20:16 Urine Culture - Preliminary Urine,Clean Catch Gram Negative Rods 05/21/21 20:06 Blood Culture - Preliminary Blood NEGATIVE TO DATE 05/21/21 19:35 Blood Culture - Preliminary Blood NEGATIVE TO DATE A&P Assessment and plan (1) Toxic encephalopathy: -Secondary to UTI, pyelonephritis dehydration -Mentation is improving -Continue antibiotics, stop IV fluids Status: Acute (2) UTI (urinary tract infection): -Has a history of Pseudomonas UTI, status post prostatectomy for prostate cancer -Continue cefepime -CT scan of abdomen pelvis shows increased perinephric stranding bilaterally that could represent pyelonephritis, bladder wall thickening, no significant evidence radiographically of obstructive uropathy -Follow blood cultures, urine cultures Status: Acute Qualifiers: Urinary tract infection type: acute cystitis Hematuria presence: without hematuria Qualified Code(s): N30.00 - Acute cystitis without hematuria (3) Prostate cancer: Status: Chronic (4) Urgency-frequency syndrome: Status: Chronic (5) Chronic kidney disease (CKD) stage G2/A1, mildly decreased glomerular filtration rate (GFR) between 60-89 mL/min/1.73 square meter and albuminuria creatinine ratio less than 30 mg/g: Status: Chronic (6) Systolic CHF: BNP is elevated at 9153, does not look clinically fluid overloaded, continue home Lasix, follow repeat echocardiogram Status: Chronic Qualifiers: Heart failure chronicity: chronic Qualified Code(s): I50.22 - Chronic systolic (congestive) heart failure (7) Atrial fibrillation: Continue home Coreg, Xarelto Status: Chronic Qualifiers: Atrial fibrillation type: longstanding persistent Qualified Code(s): I48.11 - Longstanding persistent atrial fibrillation (8) Chronic anticoagulation: Status: Chronic (9) Hypertension: Status: Chronic Qualifiers: Hypertension type: unspecified Qualified Code(s): I10 - Essential (primary) hypertension (10) Pyelonephritis: -Now on antibiotics as per above Status: Acute (11) Pneumonia: -CT scan evidence of left lower lobe pneumonia, however patient does not have any complaints of shortness of breath, no cough, is not requiring any oxygen -Is on broad-spectrum antibiotics, continue to monitor -Although I feel clinically unlikely that he has a pneumonia Status: Acute Additional A&P Information Send stool for C. difficile secondary to report of diarrhea Tylenol for fever control Continue home aspirin, carvedilol and statin therapy Continue home rivaroxaban Monitor overall volume status Telemetry monitoring Limited echocardiogram: 1-Normal left ventricular cavity size. Normal left ventricular systolic function. No regional wall motion abnormalities. Left ventricular ejection fraction is estimated at 55 %. 2-Moderately thickened mitral valve. Moderate mitral annular calcification. No mitral valve stenosis. 3-Structurally normal aortic valve without significant sclerosis or stenosis. 4-Structurally normal tricuspid valve without significant stenosis. 5-Structurally normal pulmonic valve without significant stenosis. 6-Right atrial pressure is around 5 mm of mercury. 7-When compared to the prior echocardiogram dated October 01, 2020 this is a limited study without hemodynamic data therefore cannot be comparable however it appeared to me the left ventricle ejection fraction has improved from severely reduced 33% to normal 55% now Supportive care otherwise PPI for GI prophylaxis Xarelto will provide VTE prophylaxis Findings, concerns and plans were discussed with patient as well as his and both were given opportunity to ask questions Anticipate discharge back home when stable Full code Attestations Medical Necessity Statement*: Patient requires hospitalization for toxic encephalopathy secondary UTI, bilateral pyelonephritis, possible pneumonia Coding 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 of Care 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 Toxic encephalopathy G92 UTI (urinary tract infection) N30.00 Urinary tract infection type: acute cystitis Hematuria presence: without hematuria Prostate cancer C61 Urgency-frequency syndrome N32.81 Chronic kidney disease (CKD) stage G2/A1, mildly decreased glomerular filtration rate (GFR) between 60-89 mL/min/1.73 square meter and albuminuria creatinine ratio less than 30 mg/g N18.2 Systolic CHF I50.22 Heart failure chronicity: chronic Atrial fibrillation I48.11 Atrial fibrillation type: longstanding persistent Chronic anticoagulation Z79.01 Hypertension I10 Hypertension type: unspecified Pyelonephritis N12 Pneumonia J18.9
[2021-05-23] MEDS: amlodipine 10 mg Tablet PO (15:29)
--- NOTE | 2021-05-23 16:59 | PC.CHAP ---
Pastoral Care Encounter/Spiritual Assessment Type of Contact [] Declined financial sales representative visit [] Patient/Family/Request visit [] Outpatient visit [] Follow-up visit [] Physician referral [] Code/Alert [XX] Routine visit [] Staff referral [] Actively dying [XX] Patient sleeping [] Family support [] [] Out of room [] Palliative care [] [] Receiving care in room [] Pre-surgical visit [] Trauma [] Long length of stay [] ICU visit [] Other: Relational/Emotional Strength [] Patient feels connected with others/family/visitors/staff [] Distress [] Loneliness/isolation [] Abandonment Spirituality of Patient [] Person of Ana [] Attends Holiness of their Ana [] Believes in Prayer [] Reads Bible or Spiritism materials [] There are Spiritual issues to be addressed 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 [] Prayer [] Active listening [] Non-anxious presence [] Spiritual/emotional support [] Crisis/trauma care [] Spiritual counseling [] Bereavement support [] Provided bereavement packet [] Provided Bible/devotional materials [] Provided toy/stuffed animal, coloring book to patient or family member [] Provided Communion [] Anointing/[place] [] Salvation [] Completed spiritual assessment [] Other: Impact on Illness or Injury [] Angry [] Fearful [] Anxious [] Often cries [] Exhaustion [] Unable to work [] Unable to attend anglican [] Unable to walk/stand [] Unable to read [] Unable to drive [] Unable to eat/drink [] Unable to sleep [] Unable to be with family [] Patient intubated [] Other: Summary Time spent with patient
[2021-05-24] VITALS (7 sets, daily range): BP systolic 103–158; BP diastolic 66–99; PULSE 79–112; RESP 16–20; TEMP 36.6–37.2; O2SAT 96–99
[2021-05-24] MEDS: TRAMadol 50 mg Tablet PO (02:56)
[2021-05-24 06:45] LABS: Basophils % 0.1 %; Eosinophils # 0.1 10^3/uL (0.0-0.8); Eosinophils % 1.1 %; Hematocrit 35.4 % (42.0-52.0); Hemoglobin 11.5 g/dL (11.7-16.6); Lymphocytes # 1.1 10^3/uL (0.8-4.8); Lymphocytes % 14.5 %; Mean Corpuscular HGB Conc 32.5 g/dL (30.0-36.0); Mean Corpuscular Hemoglobin 28.3 pg (28.0-34.0); Mean Corpuscular Volume 87.2 fl (80-94); Mean Platelet Volume 10.4 fL (7.4-10.4); Monocytes # 0.7 10^3/uL (0.2-0.9); Monocytes % 9.4 %; Neutrophils # 5.53 10^3/uL (1.8-7.7); Neutrophils % 74.4 %; Nucleated Red Blood Cells % 0 %; Platelet Count 173 10^3/cmm (130-400); Red Blood Count 4.06 10^6/uL (4.1-5.3); Red Cell Distribution Width 13.3 % (12.1-15.1); White Blood Count 7.4 10^3/uL (4.0-10.0)
[2021-05-24 07:08] LABS: Alanine Aminotransferase 27 U/L (0-41); Alkaline Phosphatase 81 IU/L (40-130); Anion Gap 12.9 (5-19); Aspartate Amino Transferase 33 U/L (0-40); Blood Urea Nitrogen 16 mg/dL (8-23); Calcium 8.2 mg/dL (8.5-10.5); Carbon Dioxide 26 mmol/L (22-29); Chloride 103 mmol/L (98-107); Glucose 109 mg/dL (65-115); Magnesium 2.1 mg/dL (1.7-2.3); Osmolality Calculated 288 mOsm/kg (285-295); Phosphorus 2.6 mg/dL (2.5-4.5); Potassium 3.9 mmol/L (3.5-5.1); Sodium 138 mmol/L (136-145); Total Bilirubin 0.6 mg/dL (0.15-1.2)
[2021-05-24] MEDS: cefepime 1,000 MG in sodium chloride 0.9% (plus) 50 ML 100 MG IV (08:29)
[2021-05-24] MEDS: pantoprazole DR 40 mg Tablet PO (08:30)
[2021-05-24] MEDS: atorvastatin 40 mg Tablet 20 MG PO (08:30)
[2021-05-24] MEDS: carvedilol 3.125 mg Tablet PO (08:30)
[2021-05-24] MEDS: rivaroxaban 10 mg Tablet 20 MG PO (08:30)
[2021-05-24] MEDS: aspirin 81 mg EC Tablet PO (08:30)
[2021-05-24] MEDS: FUROsemide 20 mg Tablet PO (08:30)
--- NOTE | 2021-05-24 12:40 | PM.DCS ---
Discharge Providers Date of Admission: 05/22/21 07:37 Date of Discharge: May 24, 2021 Attending Provider at Admission: Fide Puri MD Attending Provider at Discharge: Jr Quintana MD Primary Care Provider: Pablito Winslow MD Diagnoses at Discharge Discharge Diagnosis (1) Toxic encephalopathy: Status: Acute (2) UTI (urinary tract infection): Status: Acute Qualifiers: Urinary tract infection type: acute cystitis Hematuria presence: without hematuria Qualified Code(s): N30.00 - Acute cystitis without hematuria (3) Prostate cancer: Status: Chronic Permanent problem details: follows with Dr Kumar and Dev, 2019 radical prostatectomy, pathological stage, pT3 b, N0 Mx, s/p combined radiation therapy/ADT with Zoladex/Casodex (4) Urgency-frequency syndrome: Status: Chronic (5) Chronic kidney disease (CKD) stage G2/A1, mildly decreased glomerular filtration rate (GFR) between 60-89 mL/min/1.73 square meter and albuminuria creatinine ratio less than 30 mg/g: Status: Chronic (6) Systolic CHF: Status: Chronic Permanent problem details: EF 10/08 33 % Qualifiers: Heart failure chronicity: chronic Qualified Code(s): I50.22 - Chronic systolic (congestive) heart failure (7) Atrial fibrillation: Status: Chronic Qualifiers: Atrial fibrillation type: longstanding persistent Qualified Code(s): I48.11 - Longstanding persistent atrial fibrillation (8) Chronic anticoagulation: Status: Chronic Permanent problem details: xarelto (9) Hypertension: Status: Chronic Qualifiers: Hypertension type: unspecified Qualified Code(s): I10 - Essential (primary) hypertension (10) Pyelonephritis: Status: Acute (11) Pneumonia: Status: Acute Reason for Visit Reason for Visit: UTI Hospital Course Hospital Course This is a 71-year-old male with past medical history of prostate cancer status post prostatectomy and MAB and SBRT, hypertension, hyperlipidemia, CKD stage II, systolic CHF, atrial fibrillation on Xarelto, who presents [facility] due to altered mental status Patient was admitted to [facility] for altered mental status secondary to UTI and pyelonephritis, received IV fluids, broad-spectrum antibiotic therapy, clinically monitored. Patient's mentation clinically improved, mentation improved, urine cultures growing pansensitive E. coli. Patient will be discharged on 7 remaining days of cefdinir, with close follow-up with Dr. Kumar as outpatient. Patient was advised to drink plenty of electrolyte balance fluids, if he were to have recurrent fevers, or alteration of mentation to go to emergency room Physical Exam Const: COMMON NORMALS: no acute distress and patient oriented x3 Neck/C-Spine: COMMON NORMALS: no JVD Resp: COMMON NORMALS: normal respiratory effort, No retractions, No use of accessory muscles and clear to auscultation bilaterally AUSCULTATION: clear to auscultation bilaterally Cardio: COMMON NORMALS: no JVD, regular rate, regular rhythm, S1 normal heart sound present and S2 normal heart sound present RATE: regular rate RHYTHM: regular rhythm HEART SOUNDS: S1 normal heart sound present and S2 normal heart sound present GI: COMMON NORMALS: Normal to inspection, nondistended, normoactive bowel sounds present, Soft to palpation, non-tender, No hepatosplenomegaly present, no masses and no bruits PALPATION: Yes Soft to palpation and Yes No hepatosplenomegaly present Extremity: COMMON NORMALS: no pedal edema Neuro: COMMON NORMALS: patient oriented x3 Psych: COMMON NORMALS: mental status grossly normal Discharge Data Data Completed and Pending: Completed Studies During Hospitalization Category Date Time Status CT abdomen pelvis wo con [id number] Rout ine Cat Scan 05/22/21 08:[address] head wo con* 7 0450 Urgent Cat Scan 05/21/21 19:30 Completed XR chest 1V queenie ble [id number] Urgent Exams 05/21/21 19:30 Completed CV. echo limited [id number] Routine Ultrasound 05/22/21 06:18 Completed Pending at discharge Category Date Time Status Blood Culture Sta t Lab 05/21/21 20:06 Results Clostridioides Di fficile PCR Routin e Lab 05/22/21 07:03 Uncollected Complete Blood Co unt w/Auto AM LABS Lab 05/25/21 04:00 Ordered Comprehensive Met abolic Panel AM LA BS Lab 05/25/21 04:00 Ordered Magnesium AM LABS Lab 05/25/21 04:00 Ordered Phosphorus AM LAB S Lab 05/25/21 04:00 Ordered Labs from last 24 hours 05/24/21 05/24/21 06:00 06:00 WBC 7.4 RBC 4.06 L Hgb 11.5 L Hct 35.4 L MCV 87.2 MCH 28.3 MCHC 32.5 RDW 13.3 Plt Count 173 MPV 10.4 Neut % (Auto) 74.4 Lymph % (Auto) 14.5 [place] % (Auto) 9.4 Eos % (Auto) 1.1 Baso % (Auto) 0.1 Neut # (Auto) 5.53 Lymph # (Auto) 1.1 [place] # (Auto) 0.7 Eos # (Auto) 0.1 Baso # (Auto) 0.0 Nucleated RBC % (a uto) 0 Nucleated RBCs # 0.0 Sodium 138 Potassium 3.9 Chloride 103 Carbon Dioxide 26 Anion Gap 12.9 BUN 16 Creatinine 0.7 GFR Calculation Not Reportable Glucose 109 Calculated Osmolal ity 288 Calcium 8.2 L Phosphorus 2.6 Magnesium 2.1 Total Bilirubin 0.6 AST 33 ALT 27 Alkaline Phosphata se 81 Total Protein 6.0 L Albumin 3.0 L Globulin 3.0 Vitals: Last Vital Signs Temp 98.9 F 05/24/21 08:00 Pulse 79 05/24/21 08:00 Resp 17 05/24/21 08:00 BP 103/66 05/24/21 08:00 Pulse Ox 96 05/24/21 08:00 Discharge Plan Discharge Patient Disposition: Home Condition: Stable Prescriptions: New cefdinir 300 mg capsule 300 mg PO BID 7 Days Qty: 14 RF: 0 Continued losartan [Cozaar] 50 mg tablet 50 mg PO DAILY RF: 0 aspirin [Adult Low Dose Aspirin] 81 mg tablet,delayed release (DR/EC) 81 mg PO DAILY RF: 0 omega-3 fatty acids [Fish Oil Concentrate] 1,000 mg capsule 1,000 mg PO DAILY RF: 0 glucosamine-chondroitin 900 mg tablet 900 mg PO DAILY RF: 0 simvastatin 40 mg tablet 40 mg PO DAILY RF: 0 multivitamin Tablet 1 tab PO DAILY RF: 0 Xarelto 20 mg tablet 20 mg PO DAILY RF: 0 Lasix 20 mg tablet 20 mg PO DAILY Qty: 90 RF: 2 tramadol 50 mg tablet 50 mg PO TID PRN (Reason: Pain) RF: 0 carvedilol 3.125 mg tablet 3.125 mg PO BID RF: 0 Changed amlodipine [Norvasc] 10 mg tablet 10 mg PO DAILY Qty: 0 RF: 0 Discontinued sulfamethoxazole-trimethoprim 800-160 mg tablet 1 tab PO BID Qty: 14 RF: 0 metoprolol tartrate 50 mg tablet 50 mg PO BID RF: 0 hydrochlorothiazide 12.5 mg Capsule 12.5 mg PO DAILY RF: 0 Discharge Orders: Discharge Order (Routine); Ordered 05/24/21 Ordered By: Jr Quintana Referrals: Samy Kumar MD [Physician] - 1 week Discharge Diet: Cardiac Discharge Activity: Resume usual activity Patient Instructions: Opioid Safety Activity Restrictions/Additional Instructions: -Please continue to hydrate well -Please take antibiotics as prescribed -Follow-up with Dr. Kumar -Follow-up with primary care provider in 1 week Discharge Attestations Time Spent in Discharge Care*: less than 30 min Quality Metrics Clinical Quality Measures During this hospital stay, did patient experience: None Coding Level of Care Code Acute [facility] note Diagnoses Toxic encephalopathy G92 UTI (urinary tract infection) N30.00 Urinary tract infection type: acute cystitis Hematuria presence: without hematuria Prostate cancer C61 Urgency-frequency syndrome N32.81 Chronic kidney disease (CKD) stage G2/A1, mildly decreased glomerular filtration rate (GFR) between 60-89 mL/min/1.73 square meter and albuminuria creatinine ratio less than 30 mg/g N18.2 Systolic CHF I50.22 Heart failure chronicity: chronic Atrial fibrillation I48.11 Atrial fibrillation type: longstanding persistent Chronic anticoagulation Z79.01 Hypertension I10 Hypertension type: unspecified Pyelonephritis N12 Pneumonia J18.9
--- NOTE | 2021-05-24 15:19 | PC.NURSE ---
discharge instructions given to patient and . patient and verbalized understanding of instructions. patient's iv removed. patient dressed and taken to private vehicle by staff.
--- NOTE | 2021-05-25 15:20 | PC.SOCIAL ---
discharge follow up call made. patient is aware of discontinued medications. patient given follow up appointments with Dr. Kumar and Dr. Winslow.
== END 2021-05-24 15:32 | disposition home or self-care (01) | DRG 689 ==
LOC: ER 21:28 → ER IP 05-22 01:15 → MEDSURG 05-24 12:40
PROVIDERS: Admitting Provider Hospitalist; Emergency Provider Emergency Medicine; PCP Family Medicine Adult Medicine; Visit Provider Family Medicine
DX: N30.00 Acute cystitis without hematuria (principal); G92 Toxic encephalopathy; J18.9 Pneumonia, unspecified organism; I50.22 Chronic systolic (congestive) heart failure; I13.0 Hypertensive heart and chronic kidney disease with heart failure and stage 1 through stage 4 chronic kidney disease, or unspecified chronic kidney disease; E78.5 Hyperlipidemia, unspecified; I48.91 Unspecified atrial fibrillation; N18.2 Chronic kidney disease, stage 2 (mild); E66.9 Obesity, unspecified; Z68.34 Body mass index [BMI] 34.0-34.9, adult; N32.81 Overactive bladder; Z79.01 Long term (current) use of anticoagulants; Z85.46 Personal history of malignant neoplasm of prostate; Z79.82 Long term (current) use of aspirin; Z86.16 Personal history of COVID-19; Z98.52 Vasectomy status; Z82.49 Family history of ischemic heart disease and other diseases of the circulatory system; Z80.9 Family history of malignant neoplasm, unspecified; Z82.3 Family history of stroke
CPT/HCPCS: 36415; 36416; 36600; 70450; 71045; 74176; 80048; 80053; 81001; 82803; 82962; 83605; 83735; 83880; 84100; 84443; 84484; 85025; 87040; 87077; 87086; 87186; 90471; 90732; 93005; 93308; 96365; 96367; 96375; 99291; J0692; J2270; J2405

== ENCOUNTER → 2021-06-10 13:27 | Outpatient (BNVA) | payer MEDICARE, SELFPAY | PROVIDERS: PCP Family Medicine Adult Medicine; Visit Provider Nurse Practitioner Family | DX: N39.0 Urinary tract infection, site not specified (principal) | CPT/HCPCS: 81003; 87086 ==

== ENCOUNTER 2021-06-28 13:28 | Outpatient (CLI) | payer MEDICARE, SELFPAY ==
[2021-06-28 14:48] LABS: Prostate Specific Antigen 0.006 ng/mL (0-4)
--- NOTE | 2021-07-05 10:35 | ONC FU_ITS ---
Dr. Mckeon follow up note Patient: Tom Perales Unit #: [id number]: 1950 Dicatated By: Andrew Mckeon M.D.Date of Visit:Jun 28, 2021 Onc Med Follow-up/Prog Note History of Present Illness: Mr. Perales is a 70 -year-old gentleman with prostate cancer. On 10/19/2018 he underwent TRUSP/biopsy, 12 cores were taken, 2 cores showed Rosalina score 4+3 with 100% involvement. The other showed Rosalina score 4+4. He had follow-up bone scan done on 10/31/2018 which shows no bone metastases. At that time patient was referred to radiation oncology Dr. Keyes. He was seen in October 2018 and offered radiation therapy. Mr Perales also consulted Dr. Woo, urologist in [place] for surgical consultation and finally decided to proceed with radical prostatectomy. It was performed on 12/17/2018. The final pathology report showed adenocarcinoma, Rosalina score 3+4, approximately 50% of prostate gland is involved, with positive surgical margin, extracapsular extension is seen, and left seminal vesicle was involved. A left pelvic lymph node was removed and showed no evidence of metastatic disease. Pathological stage, pT3 b, N0 Mx Patient tolerated procedure well and was referred back to Dr Mckeon for postsurgical radiation and hormonal therapy. Mr Perales was seen by Dr. Kumar who started him on Casodex 50 mg by mouth daily in December 2018. Dr Kumar referred him back to the cancer center for short-term therapy with Zoladex and possible radiation therapy. s/p combined radiation therapy/ADT with Zoladex/Casodex Casodex discontinued on 10/15/2019 Mr. Ovalle had received treatment with Zoladex 10.8 mg. His last dose was on April 23, 2020. Came for follow-up, denies any specific complaints, no fever chills, no nausea or vomiting, no diarrhea constipation, no melena or hematochezia, no hemoptysis hematemesis, no dysuria, no night sweats, no weight loss, no recurrent fever, no new bony pains Medications: Aspirin EC 1 (81 mg) Tablet, enteric coated Oral daily, Carvedilol 1 Tablet (of 3.125 mg) Oral b.i.d., Cholecalciferol 1 Tablet (of 1.25 mg ) Oral daily, Cozaar 1 (50 mg) Tablet Oral daily, Fish Oil 1 (1200 mg) Capsule Oral b.i.d., Furosemide 1 Tablet (of 20 mg) Oral b.i.d., Glucosamine-Chondroitin DS Tablet Oral, Metoprolol Tartrate 1 Tablet (of 50 mg) Oral b.i.d., Multivitamin Adults 50+ 1 Tablet Oral daily, Norvasc 1 (10 mg) Tablet Oral daily, Potassium Chloride ER 1 Tablet (of 10 meq) Tablet, controlled release Oral daily, Simvastatin 1 Tablet (of 40 mg) Oral daily, Tumersaid Tablet Oral, Xarelto 1 Tablet (of 20 mg) Oral daily, Zoladex Subcutaneous Allergies: Cipro Review of Systems: Review of Systems is not available for this patient. Vital Signs: Performed on Jun 28, 2021 15:28 Height - 73.00 in Weight - 268.2 lbs (HIGH) BSA - 2.44 sq.m BMI - 35.38 (HIGH) Temperature - 97.4 F (LOW) Pulse - 79 /min Respiration - 15 /min BP - 147/87 mm(hg) (HIGH) O2 Sat - 97 % Pain - 0 Fatigue - 1 Performance Status: 0 - Fully active, able to carry on all predisease activities without restrictions. (ECOG) Physical Examination: ENMT - No mouth sores, no thrush, no jaundice, no cervical or axillary lymphadenopathy, Respiratory - Lungs are clear to auscultation, Cardiovascular - Regular rate and rhythm of heart, Abdomen - Soft, bowel sounds present, Extremities - No visible edema. Lab/Imaging: Most recent lab results are not available for this patient. Impression: Adenocarcinoma prostate gland status post radical prostatectomy done on 12/17/2018 Final pathology report showed [place] score 7 (3+4), Grade 2, approximately 15% of prostate gland is involved. Next The right and left apical as well as the left posterior margins are involved Extracapsular extension is seen The left seminal vesicle is involved pT3b Left pelvic lymph node excision was done which showed no evidence of metastatic disease pN0 Bone scan done on 10/31/2018 showed no evidence of osseous metastatic disease. M0 pstage III discussed with patient his disease status and treatment options. He does have high risk, stage III disease, but otherwise healthy. Adjuvant therapy with post surgery radiation therapy and ADT in neoadjuvant /concurrent/ adjuvant . He was also started on Casodex per Dr Kumar in December 2018. 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 <<Signature on File>>
== END 2021-06-28 13:29 | disposition home or self-care (01) ==
PROVIDERS: PCP Family Medicine; Visit Provider Internal Medicine Hematology & Oncology
DX: Z08 Encounter for follow-up examination after completed treatment for malignant neoplasm (principal); Z85.46 Personal history of malignant neoplasm of prostate; Z85.72 Personal history of non-Hodgkin lymphomas; Z23 Encounter for immunization; Z79.899 Other long term (current) drug therapy
CPT/HCPCS: 36415; 84153; 90471; 90686; 99214

== ENCOUNTER → 2021-07-29 08:58 | Outpatient (BNVA) | payer MEDICARE, SELFPAY | PROVIDERS: PCP Family Medicine; Visit Provider Nurse Practitioner Family | DX: Z20.822 Contact with and (suspected) exposure to COVID-19 (principal) | CPT/HCPCS: 87635 ==

== ENCOUNTER 2021-12-16 08:09 | Outpatient (CLI) | payer MEDICARE, SELFPAY ==
[2021-12-16 09:11] LABS: Prostate Specific Antigen < 0.014 ng/mL (0-4)
== END 2021-12-16 08:10 | disposition home or self-care (01) ==
PROVIDERS: PCP Family Medicine Adult Medicine; Visit Provider Urology
DX: C61 Malignant neoplasm of prostate (principal)
CPT/HCPCS: 81003; 84153

== ENCOUNTER 2021-12-24 09:00 | Outpatient (CLI) | payer MEDICARE, SELFPAY ==
[2021-12-24 09:36] LABS: Basophils % 0.3 %; Eosinophils # 0.1 10^3/uL (0.0-0.8); Eosinophils % 1.6 %; Hemoglobin 14.7 g/dL (11.7-16.6); Lymphocytes # 1.7 10^3/uL (0.8-4.8); Mean Corpuscular HGB Conc 33.4 g/dL (30.0-36.0); Mean Corpuscular Hemoglobin 29.5 pg (28.0-34.0); Mean Corpuscular Volume 88.4 fl (80-94); Mean Platelet Volume 10.4 fL (7.4-10.4); Monocytes # 0.6 10^3/uL (0.2-0.9); Monocytes % 8.6 %; Neutrophils # 4.54 10^3/uL (1.8-7.7); Neutrophils % 64.9 %; Nucleated Red Blood Cells % 0 %; Platelet Count 211 10^3/cmm (130-400); Red Blood Count 4.98 10^6/uL (4.1-5.3); Red Cell Distribution Width 13.1 % (12.1-15.1)
[2021-12-24 10:05] LABS: Alanine Aminotransferase 37 U/L (0-41); Albumin Level 4.5 g/dL (3.5-5.2); Alkaline Phosphatase 86 IU/L (40-130); Anion Gap 13.5 (5-19); Aspartate Amino Transferase 30 U/L (0-40); Blood Urea Nitrogen 16 mg/dL (8-23); Calcium 9.6 mg/dL (8.5-10.5); Carbon Dioxide 26 mmol/L (22-29); Chloride 103 mmol/L (98-107); Globulin 2.3 g/dL (1.3-4.6); Glucose 104 mg/dL (65-115); Osmolality Calculated 287 mOsm/kg (285-295); Potassium 4.5 mmol/L (3.5-5.1); Sodium 138 mmol/L (136-145); Total Bilirubin 0.7 mg/dL (0.15-1.2); Total Protein 6.8 g/dL (6.6-8.7)
[2021-12-24 10:09] LABS: Prostate Specific Antigen < 0.014 ng/mL (0-4)
== END 2021-12-24 09:01 | disposition home or self-care (01) ==
PROVIDERS: PCP Family Medicine Adult Medicine; Visit Provider Internal Medicine Hematology & Oncology
DX: Z85.46 Personal history of malignant neoplasm of prostate (principal); Z79.899 Other long term (current) drug therapy
CPT/HCPCS: 36415; 80053; 84153; 85025

== ENCOUNTER → 2022-02-08 12:05 | Outpatient (BNVA) | payer MEDICARE, SELFPAY | PROVIDERS: PCP Family Medicine Adult Medicine; Visit Provider Nurse Practitioner Family | DX: I11.0 Hypertensive heart disease with heart failure (principal); I50.22 Chronic systolic (congestive) heart failure; I48.11 Longstanding persistent atrial fibrillation | CPT/HCPCS: 99214 ==

== ENCOUNTER → 2022-04-25 08:27 | Outpatient (BNVA) | payer MEDICARE, SELFPAY | PROVIDERS: PCP Family Medicine Adult Medicine; Visit Provider Family Medicine | DX: N39.0 Urinary tract infection, site not specified (principal) | CPT/HCPCS: 81000 ==

== ENCOUNTER → 2022-07-21 08:47 | Outpatient (BNVA) | payer MEDICARE, SELFPAY | PROVIDERS: PCP Family Medicine Adult Medicine; Visit Provider Urology | DX: C61 Malignant neoplasm of prostate (principal) | CPT/HCPCS: 84153 ==

== ENCOUNTER → 2022-07-26 14:06 | Outpatient (BNVA) | payer MEDICARE, SELFPAY | PROVIDERS: PCP Family Medicine Adult Medicine; Visit Provider Urology | DX: C61 Malignant neoplasm of prostate (principal); N39.41 Urge incontinence; Z87.440 Personal history of urinary (tract) infections; R33.9 Retention of urine, unspecified | CPT/HCPCS: 51798; 81003; 99213 ==

== ENCOUNTER → 2022-08-09 11:35 | Outpatient (BNVA) | payer MEDICARE, SELFPAY | PROVIDERS: PCP Family Medicine Adult Medicine; Visit Provider Internal Medicine | DX: I13.0 Hypertensive heart and chronic kidney disease with heart failure and stage 1 through stage 4 chronic kidney disease, or unspecified chronic kidney disease (principal); N18.2 Chronic kidney disease, stage 2 (mild); I50.22 Chronic systolic (congestive) heart failure; I48.11 Longstanding persistent atrial fibrillation; R60.0 Localized edema | CPT/HCPCS: 99213 ==

== ENCOUNTER 2022-08-24 11:38 | Oncology outpatient (recurring) (ONCR) | payer MEDICARE, SELFPAY | END 2022-09-17 23:59 | disposition home or self-care (01) | LOC: ONCMED 11:38 | PROVIDERS: PCP Family Medicine Adult Medicine; Visit Provider Internal Medicine Hematology & Oncology | DX: Z08 Encounter for follow-up examination after completed treatment for malignant neoplasm (principal); Z85.46 Personal history of malignant neoplasm of prostate; Z87.440 Personal history of urinary (tract) infections; Z90.89 Acquired absence of other organs; Z92.3 Personal history of irradiation | CPT/HCPCS: 80053; 84153; 99213; 99214 ==

== ENCOUNTER → 2022-11-08 11:46 | Outpatient (BNVA) | payer MEDICARE, SELFPAY | PROVIDERS: PCP Family Medicine Adult Medicine; Visit Provider Urology | DX: R33.9 Retention of urine, unspecified (principal) | CPT/HCPCS: 84153 ==

== ENCOUNTER → 2022-11-15 07:24 | Outpatient (BNVA) | payer MEDICARE, SELFPAY | PROVIDERS: PCP Family Medicine Adult Medicine; Visit Provider Urology | DX: Z87.440 Personal history of urinary (tract) infections (principal); R33.9 Retention of urine, unspecified | CPT/HCPCS: 51798; 81003; 99213 ==

== ENCOUNTER → 2023-02-15 09:30 | Outpatient (BNVA) | payer MEDICARE, SELFPAY | PROVIDERS: PCP Family Medicine Adult Medicine; Visit Provider Nurse Practitioner Family | DX: R30.0 Dysuria (principal) | CPT/HCPCS: 81000 ==

== ENCOUNTER → 2023-02-24 09:13 | Outpatient (BNVA) | payer MEDICARE, SELFPAY | PROVIDERS: PCP Family Medicine Adult Medicine; Visit Provider Family Medicine Adult Medicine | DX: E78.5 Hyperlipidemia, unspecified (principal); I10 Essential (primary) hypertension; I50.22 Chronic systolic (congestive) heart failure; R33.9 Retention of urine, unspecified; C61 Malignant neoplasm of prostate | CPT/HCPCS: 80053; 80061; 84153; 85025 ==

== ENCOUNTER → 2023-10-04 13:03 | Outpatient (BNVA) | payer MEDICARE, SELFPAY | PROVIDERS: PCP Family Medicine Adult Medicine; Visit Provider Internal Medicine | DX: I48.11 Longstanding persistent atrial fibrillation (principal); I12.9 Hypertensive chronic kidney disease with stage 1 through stage 4 chronic kidney disease, or unspecified chronic kidney disease; N18.2 Chronic kidney disease, stage 2 (mild); R60.0 Localized edema | CPT/HCPCS: 99213 ==

== ENCOUNTER 2024-04-29 21:53 | Emergency (ER) | payer MEDICARE, SELFPAY ==
[2024-04-29 21:54] VITALS: BP 118/81; PULSE 91; RESP 18; TEMP 37.4; O2SAT 94; BMI 33.0
--- NOTE | 2024-04-29 21:56 | CTR_ITS ---
PROCEDURE INFORMATION: Exam: CT Lumbar Spine Without Contrast Exam date and time: 04/29/2024 10:33 PM Age: 74 years old Clinical indication: Low back pain TECHNIQUE: Imaging protocol: Computed tomography of the lumbar spine without contrast. Radiation optimization: All CT scans at this facility use at least one of these dose optimization techniques: automated exposure control; mA and/or kV adjustment per patient size (includes targeted exams where dose is matched to clinical indication); or iterative reconstruction. COMPARISON: NM bone scan whole body* [id number] 10/31/2018 8:26 AM RADIATION DOSE METRICS: Total DLP (mGy-cm): 1289 FINDINGS: Bones/joints: No acute fractures or subluxations. Moderate intervertebral disc space narrowing of L4-L5 and L5-S1 with endplate sclerotic and cystic changes. Moderate bilateral facet arthropathy. Small endplate osteophytes. No evidence of central canal stenosis. Kidneys and ureters: Bilateral perinephric fat stranding. Vasculature: Severe diffuse atherosclerotic calcifications. Soft tissues: Unremarkable. CT/CT lumbar spine wo con* [id number] IMPRESSION: No acute fractures or subluxations. Moderate degenerative changes lumbar spine.
--- NOTE | 2024-04-29 22:12 | W.ED.FALL ---
HPI - Fall General: Chief Complaint: Fall Stated Complaint: fall, back pain, UTI Time Seen by Provider: 04/29/24 21:55 History of Present Illness: 74-year-old man with chronic low back pain, chronic kidney disease, depression, hyperlipidemia, hypertension and chronic urinary issues who presents the emergency room with weakness and a fall. EMS had reported some low back pain. He tells me this is the same as it always is. He does have a temp of 99 3 on presentation. He reports generalized weakness. He also reports he is diagnosed with a urinary tract infection today and was started on antibiotics. Altered mental status. No focal motor deficits. No chest pain. No shortness of breath. No focal abdominal pain. No nausea or vomiting. Related Data Home Medications Medication Instructions Recorded Confirmed antiarthritic combination no.2 900 900 mg PO DAILY 10/22/19 04/29/24 mg tablet (glucosamine-chondroitin) omega-3 fatty acids 1,000 mg 1,000 mg PO DAILY SEE PHARMACY 10/22/19 04/29/24 capsule (Fish Oil Concentrate) COMMENT multivitamin 1 tab PO DAILY 12/04/19 04/29/24 potassium 99 mg tablet mg PO 08/10/21 04/29/24 aspirin 81 mg tablet,delayed 81 mg PO BID 10/29/21 04/29/24 release (Adult Low Dose Aspirin) Previous Rx's Medication Instructions Recorded diclofenac sodium 3 % topical gel 1 applic topical BID apply to 09/14/22 rough skin #100 grams furosemide 20 mg tablet (Lasix) 20 mg PO DAILY edema/blood 06/16/23 pressure #90 tabs docusate sodium 250 mg capsule 250 mg PO BID PRN constipation 08/02/23 #100 caps amlodipine 10 mg tablet (Norvasc) 10 mg PO DAILY #90 tabs 03/27/24 losartan 50 mg tablet (Cozaar) 50 mg PO DAILY #90 tabs 03/27/24 simvastatin 40 mg tablet 40 mg PO DAILY #90 tabs 03/27/24 amoxicillin 500 mg-potassium 1 tab PO TID 10 days #30 tabs 04/29/24 clavulanate 125 mg tablet (Augmentin) Allergies Allergy/AdvReac Type Severity Reaction Status Date / Time No Known Allergies Allergy Verified 04/29/24 22:01 Review of Systems Narrative: Constitutional symptoms: Negative except as documented in HPI. Skin symptoms: Negative except as documented in HPI. Eye symptoms: Negative except as documented in HPI. ENMT symptoms: Negative except as documented in HPI. Respiratory symptoms: Negative except as documented in HPI. Cardiovascular symptoms: Negative except as documented in HPI. Gastrointestinal symptoms: Negative except as documented in HPI. Genitourinary symptoms: Negative except as documented in HPI. Musculoskeletal symptoms: Negative except as documented in HPI. Neurologic symptoms: Negative except as documented in HPI. Psychiatric symptoms: Negative except as documented in HPI. Endocrine symptoms: Negative except as documented in HPI. PFSH ED PFSH: Medical History Constipation Actinic keratosis due to exposure to sunlight CKD (chronic kidney disease) stage 2, GFR 60-89 ml/min 08/24/2022 creatinine 1.2. 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 Family History Father , AT AGE 63 Cancer Diabetes Lung disease Mother , AT AGE 91 CAD (coronary artery disease) Stroke Cancer Dementia Other Suicide Social History Smoking and tobacco/nicotine status: unknown if used tobacco/nicotine Alcohol intake: current Alcohol intake frequency: holidays/special occasions only Substance/Drug Use: never Adopted: No Caregiver/support person: No Lives independently: Yes Household members: family Marital status: Number of children: 2 Highest education level completed: High School Graduate service: No Current occupational status: retired Do you think of yourself as: Straight/Heterosexual Current gender identity: Male Physical Exam Narrative: EXAM NARRATIVE: General: Alert, no acute distress. Skin: Warm, dry. Head: Normocephalic, atraumatic. Neck: Supple, trachea midline. Eye: Extraocular movements are intact. Ears, nose, mouth and throat: Tacky oral mucosa Cardiovascular: Regular, Normal peripheral perfusion. Respiratory: Lungs are clear to auscultation, respirations are non-labored, breath sounds are equal, Symmetrical chest wall expansion. Gastrointestinal: Soft, Nontender, Non distended Musculoskeletal: Normal ROM, no deformity. Neurological: Alert and oriented, No focal neurological deficit observed. Psychiatric: Cooperative, appropriate mood & affect. Course Vital Signs: Vital signs: Vital Signs Temperature 99.3 F 04/29/24 21:54 Pulse Rate 91 04/29/24 21:54 Respiratory Rate 18 04/29/24 21:54 Blood Pressure 118/81 04/29/24 21:54 Pulse Oximetry 94 04/29/24 21:54 Oxygen Delivery Me thod Room Air 04/29/24 21:54 MDM - Fall Medical Decision Making Medical decision making: Differential diagnosis for patient presenting with generalized weakness including but not limited to and based on the above HPI, review of systems and physical exam: Sepsis. Dehydration. Renal failure. Electrolyte abnormalities. Anemia. Congestive heart failure. Hypotension. Coronary syndrome. Hepatitis. Cirrhosis. Infections such as pneumonia, urinary tract infection, [place]ick bourne illness, Cellulitis, Viral infections including influenza and Covid-19. Workup: labwork and lab/exam driven imaging ordered to evaluate, rule in and rule out above pathologies. Lab Review: Laboratory results were reviewed and interpreted by myself the emergency room physician. Lab work is unremarkable. No leukocytosis. No anemia. No renal failure. Glucose is normal. No longer shows any signs of a urinary tract infection at this point. CT of the lumbar spine: No fracture. Good alignment. No step-offs. This was reviewed and interpreted by myself the emergency room physician. I reviewed the patient's medical record. Reexamination: Patient remained stable. No increased work of breathing. No altered mental status. No focal motor deficits. Assessment and plan: Weakness Dehydration Fall Low back pain ?Normal saline bolus in the emergency room - Discharged home - Discussed findings and plan with patient. Answered any questions. - All laboratory values were reviewed and interpreted personally by myself, the ER physician - All imaging was reviewed and interpreted personally by myself, the ER physician. - Evaluation and treatment of this problem were appropriate in the emergency setting Lab Data 04/29/24 22:15 04/29/24 22:15 Radiology Impressions Lumbar Spine CT 04/29/24 21:56 IMPRESSION: No acute fractures or subluxations. Moderate degenerative changes lumbar spine. Laboratory Results WBC 7.38 10^3/uL (3.29-11.43) 04/29/24 22:15 RBC 4.57 10^6/uL (3.85-5.65) 04/29/24 22:15 Hgb 13.30 g/dL (11.27-16.99) 04/29/24 22:15 Hct 40.3 % (37-53) 04/29/24 22:15 MCV 88.2 fl (82-101) 04/29/24 22:15 MCH 29.1 pg (27-33) 04/29/24 22:15 MCHC 33.0 g/dL (30-55) 04/29/24 22:15 RDW 13.0 % (12.1-15.1) 04/29/24 22:15 Plt Count 159 10^3/cmm (157-399) 04/29/24 22:15 MPV 9.9 fL (7.4-10.4) 04/29/24 22:15 Neut % (Auto) 78.2 % 04/29/24 22:15 Lymph % (Auto) 10.4 % 04/29/24 22:15 [place] % (Auto) 10.3 % 04/29/24 22:15 Eos % (Auto) 0.3 % 04/29/24 22:15 Baso % (Auto) 0.1 % 04/29/24 22:15 Neut # (Auto) 5.77 10^3/uL (1.8-7.7) 04/29/24 22:15 Lymph # (Auto) 0.8 10^3/uL (0.8-4.8) 04/29/24 22:15 [place] # (Auto) 0.8 10^3/uL (0.2-0.9) 04/29/24 22:15 Eos # (Auto) 0.0 10^3/uL (0.0-0.8) 04/29/24 22:15 Baso # (Auto) 0.0 10^3/uL (0.0-0.1) 04/29/24 22:15 Nucleated RBC % (auto) 0 % 04/29/24 22:15 Nucleated RBCs # 0.0 /100WBC 04/29/24 22:15 Sodium 133 mmol/L (136-145) L 04/29/24 22:15 Potassium 3.8 mmol/L (3.5-5.1) 04/29/24 22:15 Chloride 100 mmol/L (98-107) 04/29/24 22:15 Carbon Dioxide 23 mmol/L (22-29) 04/29/24 22:15 Anion Gap 13.8 (5-19) 04/29/24 22:15 BUN 17 mg/dL (8-23) 04/29/24 22:15 Creatinine 1.1 mg/dL (0.7-1.2) 04/29/24 22:15 GFR Calculation Not Reportable 04/29/24 22:15 Glucose 120 mg/dL (65-115) H 04/29/24 22:15 Calculated Osmolality 279 mOsm/kg (285-295) L 04/29/24 22:15 Lactic Acid 0.9 mmol/L (0.5-2.2) 04/29/24 22:15 Calcium 8.2 mg/dL (8.5-10.5) L 04/29/24 22:15 Total Bilirubin 0.5 mg/dL (0.15-1.2) 04/29/24 22:15 AST 16 U/L (0-40) 04/29/24 22:15 ALT 15 U/L (0-41) 04/29/24 22:15 Alkaline Phosphatase 51 U/L (40-130) 04/29/24 22:15 C-Reactive Protein 42.9 mg/L (0.0-4.9) H 04/29/24 22:15 Total Protein 6.3 g/dL (6.6-8.7) L 04/29/24 22:15 Albumin 3.7 g/dL (3.5-5.2) 04/29/24 22:15 Globulin 2.6 g/dL (1.3-4.6) 04/29/24 22:15 Procalcitonin 0.09 ng/mL (0-0.5) 04/29/24 22:15 Urine Color Yellow (Yellow) 04/29/24 22:35 Urine Appearance Clear (CLEAR) 04/29/24 22:35 Urine pH 6.0 (5-7) 04/29/24 22:35 Ur Specific [place] 1.009 (1.005-1.030) 04/29/24 22:35 Urine Protein Negative (Negative) 04/29/24 22:35 Urine Glucose (UA) Negative (Normal) 04/29/24 22:35 Urine Ketones Negative (Negative) 04/29/24 22:35 Urine Blood 1+ (Negative) A 04/29/24 22:35 Urine Nitrate Negative (Negative) 04/29/24 22:35 Urine Bilirubin Negative (Negative) 04/29/24 22:35 Urine Urobilinogen 1.0 mg/dL (Negative) 04/29/24 22:35 Ur Leukocyte Esterase Negative (Negative) 04/29/24 22:35 Urine RBC 0-2 /hpf (0-2) 04/29/24 22:35 Urine WBC 0-5 /hpf (0-5) 04/29/24 22:35 Ur Squamous Epith Cells 0-5 /hpf (0-5) 04/29/24 22:35 Amorphous Sediment Not Reportable 04/29/24 22:35 Urine Bacteria None seen /hpf (NONE) 04/29/24 22:35 Hyaline Casts 0-4 /lpf H 04/29/24 22:35 All radiology interpretation(s) finalized by discharge Discharge Plan Discharge Patient Disposition: Home Clinical Impression: Fall, Dehydration, Generalized weakness Condition: Stable Prescriptions: No Action omega-3 fatty acids [Fish Oil Concentrate] 1,000 mg capsule 1,000 mg PO DAILY glucosamine-chondroitin 900 mg tablet 900 mg PO DAILY aspirin [Adult Low Dose Aspirin] 81 mg tablet,delayed release (DR/EC) 81 mg PO BID multivitamin Tablet 1 tab PO DAILY potassium 99 mg tablet PO Patient Comments: take 1/2 tablet diclofenac sodium 3 % gel 1 applic topical BID Qty: 100 1RF docusate sodium 250 mg capsule 250 mg PO BID PRN (Reason: constipation) Qty: 100 5RF amoxicillin-pot clavulanate [Augmentin] 500-125 mg tablet 1 tab PO TID 10 Days Qty: 30 0RF Lasix 20 mg tablet 20 mg PO DAILY Qty: 90 1RF Rx Instructions: MUST have follow-up for further refills amlodipine [Norvasc] 10 mg tablet 10 mg PO DAILY Qty: 90 3RF losartan [Cozaar] 50 mg tablet 50 mg PO DAILY Qty: 90 3RF simvastatin 40 mg tablet 40 mg PO DAILY Qty: 90 3RF Discharge Orders: Discharge ED (Routine); Ordered 04/29/24 Ordered By: Krupa Silva Referrals: Pablito Winslow MD [Primary Care Provider] - Discharge Diet: Usual diet Discharge Activity: Increase activity as tolerated Patient Instructions: Weakness (ED) Activity Restrictions/Additional Instructions: Thank you for choosing [facility] for your healthcare needs today. Please realize this is an emergency room and that we are providing you with a medical screening exam and this may not be complete and all inclusive of all the testing and or work up that you may need to determine your ailment or severity of your illness. You have been screened and evaluated and felt safe for discharge. Health conditions do change or evolve sometimes and as such it is important that you follow up with your Primary Doctor to be re checked, 3-5 days is a general good time frame for follow up. You are always welcome to return to the ED for re assessment if your symptoms are worsening or you have new concerns Coding Level of Care Code ED Substance Abuse Clinician for Mickie Casey
[2024-04-29 22:36] LABS: Basophils % 0.1 %; Eosinophils % 0.3 %; Hematocrit 40.3 % (37-53); Lymphocytes # 0.8 10^3/uL (0.8-4.8); Lymphocytes % 10.4 %; Mean Corpuscular Hemoglobin 29.1 pg (27-33); Mean Corpuscular Volume 88.2 fl (82-101); Mean Platelet Volume 9.9 fL (7.4-10.4); Monocytes # 0.8 10^3/uL (0.2-0.9); Monocytes % 10.3 %; Neutrophils # 5.77 10^3/uL (1.8-7.7); Neutrophils % 78.2 %; Nucleated Red Blood Cells % 0 %; Platelet Count 159 10^3/cmm (157-399); Red Blood Count 4.57 10^6/uL (3.85-5.65); White Blood Count 7.38 10^3/uL (3.29-11.43)
[2024-04-29 22:42] LABS: Bilirubin Urine Negative (Negative); Blood Urine 1+ (Negative); Glucose Urine UA Negative (Normal); Ketones Urine Negative (Negative); Leukocyte Esterase Urine Negative (Negative); Nitrate Urine Negative (Negative); Protein Urine Negative (Negative); Specific Gravity, Urine 1.009 (1.005-1.030); Urine Appearance Clear (CLEAR); Urine Color Yellow (Yellow)
[2024-04-29 22:49] LABS: Bacteria Urine None Seen /hpf; Hyaline Casts Urine 0-4 /lpf; RBC Urine 0-2 /hpf (0-2); Squamous Epithelial Cell Urine 0-5 /hpf (0-5); WBC Urine 0-5 /hpf (0-5)
[2024-04-29 22:53] LABS: Alanine Aminotransferase 15 U/L (0-41); Albumin Level 3.7 g/dL (3.5-5.2); Alkaline Phosphatase 51 U/L (40-130); Anion Gap 13.8 (5-19); Aspartate Amino Transferase 16 U/L (0-40); Blood Urea Nitrogen 17 mg/dL (8-23); C Reactive Protein 42.9 mg/L (0.0-4.9); Calcium 8.2 mg/dL (8.5-10.5); Carbon Dioxide 23 mmol/L (22-29); Chloride 100 mmol/L (98-107); Creatinine Clr Calc Pharmacy 77.7493; Globulin 2.6 g/dL (1.3-4.6); Glucose 120 mg/dL (65-115); Osmolality Calculated 279 mOsm/kg (285-295); Potassium 3.8 mmol/L (3.5-5.1); Sodium 133 mmol/L (136-145); Total Bilirubin 0.5 mg/dL (0.15-1.2); Total Protein 6.3 g/dL (6.6-8.7)
[2024-04-29 22:55] LABS: Lactic Sepsis W/Reflex 0.9 mmol/L (0.5-2.2)
[2024-04-29 23:00] LABS: Procalcitonin 0.09 ng/mL (0-0.5)
[2024-04-29 23:01] VITALS: BP 114/78; PULSE 98; O2SAT 96
[2024-04-29 23:31] VITALS: BP 127/76; PULSE 84; O2SAT 96
[2024-04-29] MEDS: sodium chloride 0.9% 1,000 ML 999 ML IV (23:42)
[2024-04-30 00:01] VITALS: BP 109/74; PULSE 89; O2SAT 94
[2024-04-30 00:31] VITALS: BP 126/92; PULSE 93; O2SAT 97
== END 2024-04-30 01:05 | disposition home or self-care (01) ==
PROVIDERS: Emergency Provider Emergency Medicine; PCP Family Medicine Adult Medicine
DX: R53.1 Weakness (principal); E86.0 Dehydration; Z79.82 Long term (current) use of aspirin; I12.9 Hypertensive chronic kidney disease with stage 1 through stage 4 chronic kidney disease, or unspecified chronic kidney disease; N18.2 Chronic kidney disease, stage 2 (mild); E78.5 Hyperlipidemia, unspecified; Z85.46 Personal history of malignant neoplasm of prostate
CPT/HCPCS: 36415; 72131; 80053; 81000; 81001; 83605; 84145; 85025; 86140; 87040; 96360; 99284; J7030

== ENCOUNTER → 2024-05-24 12:15 | Outpatient (BNVA) | payer MEDICARE, SELFPAY | PROVIDERS: PCP Family Medicine Adult Medicine; Visit Provider Family Medicine | DX: I48.11 Longstanding persistent atrial fibrillation (principal); N39.41 Urge incontinence | CPT/HCPCS: 80048; 82607; 84443; 87086 ==

== ENCOUNTER → 2024-11-20 10:41 | Outpatient (BNVA) | payer MEDICARE, SELFPAY | PROVIDERS: PCP Family Medicine; Visit Provider Internal Medicine | DX: I48.11 Longstanding persistent atrial fibrillation (principal); I10 Essential (primary) hypertension; R60.0 Localized edema | CPT/HCPCS: 99213 ==

== ENCOUNTER 2024-12-03 08:31 | Oncology outpatient (recurring) (ONCR) | payer MEDICARE, SELFPAY ==
[2024-12-03 09:05] LABS: Basophils % 0.1 %; Eosinophils # 0.1 10^3/uL (0.0-0.8); Hematocrit 42.9 % (37-53); Lymphocytes # 1.5 10^3/uL (0.8-4.8); Lymphocytes % 18.9 %; Mean Corpuscular HGB Conc 32.6 g/dL (30-55); Mean Corpuscular Volume 88.8 fl (82-101); Mean Platelet Volume 9.7 fL (7.4-10.4); Monocytes # 0.4 10^3/uL (0.2-0.9); Monocytes % 5.4 %; Neutrophils # 5.94 10^3/uL (1.8-7.7); Neutrophils % 74.2 %; Nucleated Red Blood Cells % 0 %; Platelet Count 212 10^3/cmm (157-399); Red Blood Count 4.83 10^6/uL (3.85-5.65); Red Cell Distribution Width 12.9 % (12.1-15.1)
[2024-12-03 09:33] LABS: Alanine Aminotransferase 22 U/L (0-41); Albumin Level 4.2 g/dL (3.5-5.2); Alkaline Phosphatase 63 U/L (40-130); Anion Gap 12.5 (5-19); Aspartate Amino Transferase 22 U/L (0-40); Blood Urea Nitrogen 25 mg/dL (8-23); Calcium 9.4 mg/dL (8.5-10.5); Carbon Dioxide 27 mmol/L (22-29); Chloride 103 mmol/L (98-107); Globulin 2.7 g/dL (1.3-4.6); Glucose 99 mg/dL (65-115); Osmolality Calculated 290 mOsm/kg (285-295); Potassium 4.5 mmol/L (3.5-5.1); Sodium 138 mmol/L (136-145); Testosterone Total 425.9 ng/dL (193-740); Total Protein 6.9 g/dL (6.6-8.7)
[2024-12-03 09:37] LABS: Prostate Specific Antigen < 0.014 ng/mL (0-4)
== END 2024-12-16 23:59 | disposition home or self-care (01) ==
PROVIDERS: PCP Family Medicine; Visit Provider Internal Medicine Medical Oncology
DX: Z08 Encounter for follow-up examination after completed treatment for malignant neoplasm (principal); Z85.46 Personal history of malignant neoplasm of prostate; Z90.79 Acquired absence of other genital organ(s); Z85.72 Personal history of non-Hodgkin lymphomas; Z92.3 Personal history of irradiation; Z92.23 Personal history of estrogen therapy
CPT/HCPCS: 36415; 80053; 84153; 84403; 85025; 99214

== ENCOUNTER → 2024-12-18 12:34 | Outpatient (BNVA) | payer MEDICARE, SELFPAY | PROVIDERS: PCP Family Medicine; Referring Provider Family Medicine; Visit Provider Surgery | DX: Z12.11 Encounter for screening for malignant neoplasm of colon (principal) | CPT/HCPCS: 99024; 99204 ==

== ENCOUNTER 2025-01-02 07:33 | Day surgery (SDC) | payer MEDICARE, SELFPAY ==
--- NOTE | 2025-01-02 07:53 | W.PM.OPSUD ---
Surgery/Procedure H&P Update DATE OF PROCEDURE: January 02, 2025 DATE H&P PERFORMED: 12/18/24 H&P UPDATE INFORMATION: I have reviewed H&P completed within last 30 days, I have examined patient prior to procedure, No changes to prior documentation, Changes to prior documentation as noted here and Risks and benefits of the procedure reviewed PLANNED PROCEDURE: Operation Date: 01/02/25 09:45 Proposed Procedures p Colonoscopy 91428 G0105 Z12.11(Not Applicable) - Tom Crooks MD
[2025-01-02 07:55] VITALS: BP 108/80; PULSE 65; RESP 16; TEMP 36.4; O2SAT 98; BMI 33.0
[2025-01-02] MEDS: sodium chloride 0.9% 1,000 ML 15 ML IV (08:27)
--- NOTE | 2025-01-02 08:58 | ANES.PREANE2 ---
Pre-Anesthetic Assessment Height/Weight: Height 1.85 m Weight 113.398 kg Temp Pulse Resp BP Pulse Ox O2 Del Method 97.6 F 65 16 108/80 98 Room Air 01/02/25 07:55 01/02/25 07:55 01/02/25 07:55 01/02/25 07:55 01/02/25 07:55 01/02/25 07:55 Preop Diagnosis: Screen, history of cancer Operation Date: 01/02/25 09:45 Proposed Procedures p Colonoscopy 63604 G0105 Z12.11(Not Applicable) - Tom Crooks MD Familial anesthetic complications: none Was Beta Kamron taken within 24 hours: N/A Was Clonidine taken within 24 hours: N/A Last intake: Intake Last Liquid Date 01/02/25 Last Liquid Time 04:00 Last Solid Date 12/31/24 Last Solid Time 22:00 Social No alcohol and No tobacco Exam alert, oriented x 3, clear to auscultation bilaterally and regular rate & rhythm Airway Mallampati: Class II Comments: Comments: missin upper incisors Pulmonary None reported CV/HEM Atrial Fibrillation, Congestive Heart Failure and Hypertension >4METS CKD Hepatic None reported GI None reported Metabolic Hyperlipidemia [facility] None reported Neuropsych None reported Anesthetic Plan ASA status: 3 Anesthesia: MAC Risk of > 500 ml blood loss (7ml/kg in children): No Medications/Allergies Home Medications ?Medication ?Instructions ?Recorded ?Confirmed ?Last Taken ?Type antiarthritic combination no.2 900 900 mg PO DAILY 10/22/19 01/02/25 01/01/25 History mg tablet (glucosamine-chondroitin) omega-3 fatty acids 1,000 mg 1,000 mg PO DAILY SEE PHARMACY 10/22/19 01/02/25 01/01/25 History capsule (Fish Oil Concentrate) COMMENT multivitamin 1 tab PO DAILY 12/04/19 01/02/25 01/01/25 History aspirin 81 mg tablet,delayed 81 mg PO BID 10/29/21 01/02/25 12/30/24 History release (Adult Low Dose Aspirin) diclofenac sodium 3 % topical gel 1 applic topical BID apply to 09/14/22 01/02/25 Unknown Rx rough skin #100 grams docusate sodium 250 mg capsule 250 mg PO BID PRN constipation 08/02/23 01/02/25 01/01/25 Rx #100 caps amlodipine 10 mg tablet (Norvasc) 10 mg PO DAILY #90 tabs 12/13/24 01/02/25 01/01/25 Rx losartan 50 mg tablet (Cozaar) 50 mg PO DAILY #90 tabs 12/13/24 01/02/25 01/01/25 Rx simvastatin 40 mg tablet 40 mg PO DAILY #90 tabs 12/13/24 01/02/25 01/01/25 Rx hydrocortisone 1 % topical cream 1 applic topical TID PRN skin 12/16/24 01/02/25 Unknown Rx irritation #28.4 grams Allergies Allergy/AdvReac Type Severity Reaction Status Date / Time No Known Allergies Allergy Verified 12/30/24 09:43 Current Medications Generic Name Dose Route Start Last Admin Trade Name Freq PRN Reason Stop Dose Admin Sodium Chloride 1,000 mls @ 15 mls/hr 01/02/25 07:49 01/02/25 08:27 Sodium Chloride 0.9% IV 01/03/25 07:48 15 mls/hr .Q24H PRN Administration COLONOSCOPY FLUIDS PFSH Anesthesia Medical History Hx of malignant neoplasm of prostate Constipation Actinic keratosis due to exposure to sunlight CKD (chronic kidney disease) stage 2, GFR 60-89 ml/min 08/24/2022 creatinine 1.2. 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 Family History Father , AT AGE 63 Cancer Diabetes Lung disease Mother , AT AGE 91 CAD (coronary artery disease) Stroke Cancer Dementia Other Suicide Social History Smoking and tobacco/nicotine status: never used tobacco/nicotine Alcohol intake: current Alcohol intake frequency: holidays/special occasions only Substance/Drug Use: never Adopted: No Caregiver/support person: No Lives independently: Yes Household members: family Marital status: Number of children: 2 Highest education level completed: High School Graduate service: No Current occupational status: retired Do you think of yourself as: Straight/Heterosexual Current gender identity: Male Data Anesthesia Cardiac Studies: Echocardiogram Limited Views 05/22/21 Echocardiogram Ultrasound 10/01/20
[2025-01-02 09:22] VITALS: BP 124/86; PULSE 84; RESP 18; TEMP 36.3; O2SAT 100
[2025-01-02 09:32] VITALS: BP 122/78; PULSE 86; RESP 18; TEMP 36.2; O2SAT 98
--- NOTE | 2025-01-02 12:52 | ANE.PACU2 ---
Inpatient post-anesthesia follow up: Airway intact: Yes Vital signs: Temperature 97.2 F Pulse Rate 86 Respiratory Rate 18 Blood Pressure 122/78 Pulse Oximetry 98 Oxygen Delivery Me thod Room Air Oxygen Flow Rate Fraction of Inspir ed Oxygen Hydration adequate: Yes Nausea and vomiting: No Pain level: 2 Mental status: Baseline
== END 2025-01-02 10:01 | disposition home or self-care (01) ==
PROVIDERS: PCP Family Medicine; Visit Provider Surgery
PROC: 0DJD8ZZ Inspection of Lower Intestinal Tract, Via Natural or Artificial Opening Endoscopic (ICD-10-PCS; CPT 45378; principal; 2025-01-02 09:45)
DX: Z12.11 Encounter for screening for malignant neoplasm of colon (principal); I48.91 Unspecified atrial fibrillation; I50.9 Heart failure, unspecified; I13.0 Hypertensive heart and chronic kidney disease with heart failure and stage 1 through stage 4 chronic kidney disease, or unspecified chronic kidney disease; E78.5 Hyperlipidemia, unspecified; N18.2 Chronic kidney disease, stage 2 (mild); C85.9A Non-Hodgkin lymphoma, unspecified, in remission; M35.3 Polymyalgia rheumatica; Z79.899 Other long term (current) drug therapy; Z79.82 Long term (current) use of aspirin; Z85.46 Personal history of malignant neoplasm of prostate
CPT/HCPCS: G0121; J2704; J7030

== ENCOUNTER → 2025-01-09 08:44 | Outpatient (BNVA) | payer MEDICARE, SELFPAY | PROVIDERS: PCP Family Medicine; Visit Provider Nurse Practitioner Family | DX: L30.0 Nummular dermatitis (principal); L81.4 Other melanin hyperpigmentation; L57.8 Other skin changes due to chronic exposure to nonionizing radiation; D22.5 Melanocytic nevi of trunk; L57.0 Actinic keratosis | CPT/HCPCS: 17000; 99203 ==

== ENCOUNTER 2025-01-21 07:20 | Emergency (ER) | payer MEDICARE, SELFPAY ==
[2025-01-21 07:33] VITALS: BP 139/87; PULSE 89; RESP 16; TEMP 36.6; O2SAT 98; BMI 33.0
--- NOTE | 2025-01-21 07:57 | ECG_ITS ---
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 Measurements Intervals [place] Rate: 91 P: 0 SD: 0 QRS: 109 QRSD: 90 T: 27 QT: 375 QTc: 464 Interpretive Statements ATRIAL FIBRILLATION RIGHT AXIS DEVIATION [QRS AXIS > 100] PATTERN CONSISTENT WITH PULMONARY DISEASE Compared to ECG 05/21/2021 21:33:46 Right-axis deviation now present Myocardial infarct finding no longer present Electronically Signed On 01-22-2025 17:46:44 CDT by Janene Gorman M.D. [email or web address]
--- NOTE | 2025-01-21 07:57 | CT_ITS ---
WS: [id number] CT HEAD TECHNIQUE: Noncontrast CT of the head obtained from the skullbase to the vertex. CLINICAL INFORMATION: Symptoms of acute stroke COMPARISON: 2020 DLP: [address] scans at [facility] use at least one of these dose optimization techniques: automated exposure control; mA and/or kV adjustment per patient size (includes targeted exams where dose is matched to clinical indication); or iterative reconstruction. FINDINGS: No evidence of intracranial hemorrhage or mass effect. Ventricular system and basal cisterns are patent. Moderate small vessel changes with moderate parenchymal volume loss. No extra-axial fluid collections. No evidence of mass or mass effect. Vascular calcification. Chronic low-attenuation change in the LEFT parietal white matter. Paranasal sinuses and mastoid air cells are well aerated. .Normal visualized soft tissues. CT/CT head thrombolytic 90305 IMPRESSION: 1. No evidence of intracranial hemorrhage or mass effect. 2. Dense vascular calcification 3. No acute intracranial findings. Notified Roberto Fields DO at 01/21/2025 8:30 AM.
[2025-01-21 08:26] VITALS: BP 138/87; PULSE 82
[2025-01-21 08:41] LABS: Basophils % 0.3 %; Eosinophils # 0.1 10^3/uL (0.0-0.8); Eosinophils % 1.2 %; Lymphocytes # 1.6 10^3/uL (0.8-4.8); Mean Corpuscular HGB Conc 32.7 g/dL (30-55); Mean Corpuscular Hemoglobin 28.9 pg (27-33); Mean Corpuscular Volume 88.6 fl (82-101); Mean Platelet Volume 10.1 fL (7.4-10.4); Monocytes # 0.5 10^3/uL (0.2-0.9); Monocytes % 7.8 %; Neutrophils # 4.26 10^3/uL (1.8-7.7); Neutrophils % 65.1 %; Nucleated Red Blood Cells % 0 %; Platelet Count 188 10^3/cmm (157-399); Red Blood Count 5.08 10^6/uL (3.85-5.65); Red Cell Distribution Width 12.6 % (12.1-15.1); White Blood Count 6.55 10^3/uL (3.29-11.43)
--- NOTE | 2025-01-21 08:47 | W.ED.GENADLT ---
HPI - General Adult General: Chief complaint: General Medical Stated complaint: Rt arm numbness Time Seen by Provider: 01/21/25 07:27 History of Present Illness: 74-year-old male presents emergency room 24 hours after onset of right hand weakness that only lasted for a few seconds he was eating lost control as prominent dropped and then dropped again he had periods of time or difficulty with forming words and finding words all of this has resolved has not had any symptoms in the last 24 hours we decided this morning he should get it checked. He states he has a history open malignant neoplasm of colon. He has known mets that he is aware of. He denies any chest pain. No previous history of stroke Associated symptoms: Deny chest pain, dyspnea or rash Related Data Home Medications ?Medication ?Instructions ?Recorded ?Confirmed antiarthritic combination no.2 900 900 mg PO DAILY 10/22/19 01/21/25 mg tablet (glucosamine-chondroitin) multivitamin 1 tab PO DAILY 12/04/19 01/21/25 aspirin 81 mg tablet,delayed 81 mg PO BID 10/29/21 01/21/25 release (Adult Low Dose Aspirin) omega 3 350 mg-dha 235 mg-epa 90 1 cap PO DAILY 01/21/25 01/21/25 mg-fish oil 597 mg capsule,delay rel (Bucks-3) triamcinolone acetonide 0.1 % See Rx Instructions .Route .COMPLEX 01/21/25 01/21/25 topical cream Previous Rx's ?Medication ?Instructions ?Recorded amlodipine 10 mg tablet (Norvasc) 10 mg PO DAILY #90 tabs 12/13/24 losartan 50 mg tablet (Cozaar) 50 mg PO DAILY #90 tabs 12/13/24 hydrocortisone 1 % topical cream 1 applic topical TID PRN skin 12/16/24 irritation #28.4 grams atorvastatin 40 mg tablet (Lipitor) 40 mg PO DAILY #30 tabs 01/21/25 clopidogrel 75 mg tablet 75 mg PO DAILY #30 tabs 01/21/25 Allergies Allergy/AdvReac Type Severity Reaction Status Date / Time No Known Allergies Allergy Verified 12/30/24 09:43 Review of Systems Const: Denies: fever(s) or chills Card: Denies: chest pain Resp: Denies: dyspnea GI: Denies: abdominal pain : Denies: dysuria, urinary frequency or urinary urgency Musc: Denies: neck pain or back pain Skin/Breast: Denies: rash PFSH ED PFSH: Medical History Hx of malignant neoplasm of prostate Constipation Actinic keratosis due to exposure to sunlight CKD (chronic kidney disease) stage 2, GFR 60-89 ml/min 08/24/2022 creatinine 1.2. 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 Family History Father , AT AGE 63 Cancer Diabetes Lung disease Mother , AT AGE 91 CAD (coronary artery disease) Stroke Cancer Dementia Other Suicide Social History Smoking and tobacco/nicotine status: never used tobacco/nicotine Alcohol intake: current Alcohol intake frequency: holidays/special occasions only Substance/Drug Use: never Adopted: No Caregiver/support person: No Lives independently: Yes Household members: family Marital status: Number of children: 2 Highest education level completed: High School Graduate service: No Current occupational status: retired Do you think of yourself as: Straight/Heterosexual Current gender identity: Male Physical Exam Const: GENERAL APPEARANCE: cooperative ORIENTATION/CONSCIOUSNESS: Yes awake, Yes oriented to person, Yes oriented to place and Yes oriented to time HENMT: COMMON NORMALS: normocephalic, atraumatic and hearing grossly normal bilaterally HEAD & SCALP: normocephalic and atraumatic Resp: COMMON NORMALS: normal respiratory effort, No retractions, No use of accessory muscles and clear to auscultation bilaterally AUSCULTATION: clear to auscultation bilaterally Cardio: COMMON NORMALS: regular rate, regular rhythm and No murmurs present (Cardio) RATE: regular rate RHYTHM: regular rhythm GI: COMMON NORMALS: Soft to palpation and No hepatosplenomegaly present AUSCULTATION: Yes normoactive bowel sounds PALPATION: Yes Soft to palpation, No Tenderness to palpation present (GI), No Guarding due to palpation present (GI) and Yes No hepatosplenomegaly present Extremity: COMMON NORMALS: normal to inspection, capillary refill normal, no clubbing, cyanosis or edema, no calf tenderness and no pedal edema Neuro: SENSORIUM/ORIENTATION: Yes oriented to person, Yes oriented to place and Yes oriented to time Skin: COMMON NORMALS: no rashes or lesions noted GENERAL SKIN EXAM: no rashes or lesions noted Course Vital Signs: Vital signs: Vital Signs Temperature 97.9 F 01/21/25 07:33 Pulse Rate 69 01/21/25 10:33 Respiratory Rate 16 01/21/25 07:33 Blood Pressure 147/99 01/21/25 10:33 Pulse Oximetry 96 01/21/25 10:33 Oxygen Delivery Me thod Room Air 01/21/25 09:58 MDM - General Adult Medical Decision Making Labs and imaging reviewed. There is no evidence of acute stroke on the imaging. Labs for the most part unremarkable. Bedside exam NIH score is 0. This is a very brief episode it is possible he did have a TIA. He has no signs or symptoms at this time and has not for the last 24 hours. Will discharge patient home increase his antiplatelet regimen to include the clopidogrel continue baby aspirin daily changing from simvastatin to atorvastatin 40 mg daily. Medical Records I reviewed the patient's medical records. Lab Data I reviewed the patient's lab results. 01/21/25 08:33 01/21/25 08:[address] 01/21/25 07:57 IMPRESSION: 1. No evidence of intracranial hemorrhage or mass effect. 2. Dense vascular calcification 3. No acute intracranial findings. Notified Roberto Fields DO at 01/21/2025 8:30 AM. Laboratory Results WBC 6.55 10^3/uL (3.29-11.43) 01/21/25 08:33 RBC 5.08 10^6/uL (3.85-5.65) 01/21/25 08:33 Hgb 14.70 g/dL (11.27-16.99) 01/21/25 08:33 Hct 45.0 % (37-53) 01/21/25 08:33 MCV 88.6 fl (82-101) 01/21/25 08:33 MCH 28.9 pg (27-33) 01/21/25 08:33 MCHC 32.7 g/dL (30-55) 01/21/25 08:33 RDW 12.6 % (12.1-15.1) 01/21/25 08:33 Plt Count 188 10^3/cmm (157-399) 01/21/25 08:33 MPV 10.1 fL (7.4-10.4) 01/21/25 08:33 Neut % (Auto) 65.1 % 01/21/25 08:33 Lymph % (Auto) 25.0 % 01/21/25 08:33 Gallia % (Auto) 7.8 % 01/21/25 08:33 Eos % (Auto) 1.2 % 01/21/25 08:33 Baso % (Auto) 0.3 % 01/21/25 08:33 Neut # (Auto) 4.26 10^3/uL (1.8-7.7) 01/21/25 08:33 Lymph # (Auto) 1.6 10^3/uL (0.8-4.8) 01/21/25 08:33 Gallia # (Auto) 0.5 10^3/uL (0.2-0.9) 01/21/25 08:33 Eos # (Auto) 0.1 10^3/uL (0.0-0.8) 01/21/25 08:33 Baso # (Auto) 0.0 10^3/uL (0.0-0.1) 01/21/25 08:33 Nucleated RBC % (auto) 0 % 01/21/25 08:33 Nucleated RBCs # 0.0 /100WBC 01/21/25 08:33 PT 14.20 SECONDS (12.1-14.9) 01/21/25 08:33 INR 1.03 (0.8-1.2) 01/21/25 08:33 APTT 30.7 SECONDS (23.9-36.7) 01/21/25 08:33 Sodium 140 mmol/L (136-145) 01/21/25 08:33 Potassium 4.5 mmol/L (3.5-5.1) 01/21/25 08:33 Chloride 103 mmol/L (98-107) 01/21/25 08:33 Carbon Dioxide 26 mmol/L (22-29) 01/21/25 08:33 Anion Gap 15.5 (5-19) 01/21/25 08:33 BUN 20 mg/dL (8-23) 01/21/25 08:33 Creatinine 1.1 mg/dL (0.7-1.2) 01/21/25 08:33 GFR Calculation Not Reportable 01/21/25 08:33 Glucose 100 mg/dL (65-115) 01/21/25 08:33 POC Glucose 86 mg/dL (70-110) 01/21/25 08:34 Calculated Osmolality 293 mOsm/kg (285-295) 01/21/25 08:33 Calcium 9.8 mg/dL (8.5-10.5) 01/21/25 08:33 Total Bilirubin 1.0 mg/dL (0.15-1.2) 01/21/25 08:33 AST 25 U/L (0-40) 01/21/25 08:33 ALT 22 U/L (0-41) 01/21/25 08:33 Alkaline Phosphatase 64 U/L (40-130) 01/21/25 08:33 Total Protein 7.0 g/dL (6.6-8.7) 01/21/25 08:33 Albumin 4.1 g/dL (3.5-5.2) 01/21/25 08:33 Globulin 2.9 g/dL (1.3-4.6) 01/21/25 08:33 All radiology interpretation(s) finalized by discharge Discharge Plan Discharge Patient Disposition: Home Clinical Impression: TIA (transient ischemic attack) Condition: Stable Prescriptions: New clopidogrel 75 mg tablet 75 mg PO DAILY Qty: 30 0RF atorvastatin [Lipitor] 40 mg tablet 40 mg PO DAILY Qty: 30 0RF Discontinued simvastatin 40 mg tablet 40 mg PO DAILY Qty: 90 1RF No Action glucosamine-chondroitin 900 mg tablet 900 mg PO DAILY aspirin [Adult Low Dose Aspirin] 81 mg tablet,delayed release (DR/EC) 81 mg PO BID multivitamin Tablet 1 tab PO DAILY amlodipine [Norvasc] 10 mg tablet 10 mg PO DAILY Qty: 90 1RF losartan [Cozaar] 50 mg tablet 50 mg PO DAILY Qty: 90 1RF hydrocortisone 1 % cream 1 applic topical TID PRN (Reason: skin irritation) Qty: 28.4 0RF triamcinolone acetonide 0.1 % cream See Rx Instructions .ROUTE .COMPLEX Rx Instructions: APPLY TOPICALLY TO THE AFFECTED AREA(S) OF ECZEMA ON LEGS TWICE DAILY NEEDED FOR NO MORE THAN 2 WEEKS. DO NOT APPLY TO FACE, GROIN, OR SKIN FOLDS. DO NOT APPLY FOR MORE THAN 2 WEEKS IN ONE MONTH. Bucks-3 350 mg-235 mg- 90 mg-597 mg Capsule,Delayed Release(Dr/Ec) 1 cap PO DAILY Discharge Orders: Discharge ED (Routine); Ordered 01/21/25 Ordered By: Roberto Fields Referrals: Arcadio Whaley MD [Primary Care Provider, [facility]] Discharge Diet: Usual diet Discharge Activity: Increase activity as tolerated Patient Instructions: Opioid Safety, Pain Management Activity Restrictions/Additional Instructions: [facility]. It is very important that you follow up as instructed or that you return to the Emergency Department should you have concerns or if your condition changes or worsens in any way. You are seen in the emergency room with transient left-sided weakness episode greater than [address] of your head done in the emergency room did not show any signs of stroke and bedside testing showed a normal exam no evidence of acute stroke recommend you continue aspirin daily changed from simvastatin to atorvastatin 40 mg daily and start clopidogrel 75 mg daily Print Language: Yoruba Coding Level of Care Code ED [employer] for Mickie Casey NIH stroke score NIHSS Level Of Consciousness - 1a: 0 Level Of Consciousness Questions - 1b: Both Correct Level Of Consciousness Commands - 1c: Both Correct Best Gaze - 2: Normal Visual [place] - 3: No Visual Loss Facial Palsy - 4: Normal Motor Arm Right - 5: No Drift Motor Arm Left - 5: No Drift Motor Leg Right - 6: No Drift Motor Leg Left - 6: No Drift Limb Ataxia - 7: Absent Sensory - 8: Normal Best Language - 9: No Aphasia Dysarthia - 10: Normal Extinction And Inattention - 11: 0 Score Total Score: 0
[2025-01-21 08:57] LABS: Alanine Aminotransferase 22 U/L (0-41); Albumin Level 4.1 g/dL (3.5-5.2); Alkaline Phosphatase 64 U/L (40-130); Aspartate Amino Transferase 25 U/L (0-40); Blood Urea Nitrogen 20 mg/dL (8-23); Calcium 9.8 mg/dL (8.5-10.5); Carbon Dioxide 26 mmol/L (22-29); Chloride 103 mmol/L (98-107); Creatinine Clr Calc Pharmacy 77.7493; Globulin 2.9 g/dL (1.3-4.6); Glucose 100 mg/dL (65-115); Osmolality Calculated 293 mOsm/kg (285-295); Sodium 140 mmol/L (136-145)
[2025-01-21 08:58] LABS: Glucose Point of Care 86 mg/dL (70-110)
[2025-01-21 09:13] LABS: INR 1.03 (0.8-1.2)
[2025-01-21 09:14] LABS: Partial Thromboplastin Time 30.7 SECONDS (23.9-36.7)
[2025-01-21 09:58] VITALS: BP 147/99; PULSE 82; O2SAT 99
[2025-01-21 10:00] LABS: Anion Gap 15.5 (5-19); Potassium 4.5 mmol/L (3.5-5.1)
[2025-01-21 10:33] VITALS: BP 147/99; PULSE 69; O2SAT 96
== END 2025-01-21 10:34 | disposition home or self-care (01) ==
PROVIDERS: Emergency Provider Family Medicine; PCP Family Medicine
DX: G45.9 Transient cerebral ischemic attack, unspecified (principal); Z79.82 Long term (current) use of aspirin; E78.5 Hyperlipidemia, unspecified; Z85.46 Personal history of malignant neoplasm of prostate; I12.9 Hypertensive chronic kidney disease with stage 1 through stage 4 chronic kidney disease, or unspecified chronic kidney disease; N18.2 Chronic kidney disease, stage 2 (mild)
CPT/HCPCS: 36415; 36416; 70450; 80053; 82962; 85025; 85610; 85730; 93005; 99284

== ENCOUNTER 2025-06-03 09:01 | Oncology outpatient (recurring) (ONCR) | payer MEDICARE, SELFPAY ==
[2025-06-03 09:27] LABS: Hematocrit 45.7 % (37-53); Hemoglobin 14.80 g/dL (11.27-16.99); Mean Corpuscular HGB Conc 32.4 g/dL (30-55); Mean Corpuscular Hemoglobin 29.2 pg (27-33); Mean Corpuscular Volume 90.3 fl (82-101); Nucleated Red Blood Cells % 0 %; Platelet Count 215 10^3/cmm (157-399); Red Blood Count 5.06 10^6/uL (3.85-5.65); White Blood Count 10.16 10^3/uL (3.29-11.43)
[2025-06-03 09:55] LABS: Alanine Aminotransferase 23 U/L (0-41); Albumin Level 4.3 g/dL (3.5-5.2); Alkaline Phosphatase 80 U/L (40-130); Anion Gap 17.5 (5-19); Aspartate Amino Transferase 22 U/L (0-40); Blood Urea Nitrogen 17 mg/dL (8-23); Calcium 9.9 mg/dL (8.5-10.5); Carbon Dioxide 24 mmol/L (22-29); Chloride 104 mmol/L (98-107); Globulin 2.7 g/dL (1.3-4.6); Glucose 113 mg/dL (65-115); Osmolality Calculated 294 mOsm/kg (285-295); Potassium 4.5 mmol/L (3.5-5.1); Sodium 141 mmol/L (136-145); Total Protein 7.0 g/dL (6.6-8.7)
[2025-06-03 10:06] LABS: Prostate Specific Antigen < 0.014 ng/mL (0-4)
== END 2025-06-17 23:59 | disposition home or self-care (01) ==
PROVIDERS: PCP Family Medicine; Visit Provider Internal Medicine Medical Oncology
DX: Z08 Encounter for follow-up examination after completed treatment for malignant neoplasm (principal); Z85.46 Personal history of malignant neoplasm of prostate; Z85.72 Personal history of non-Hodgkin lymphomas; Z90.79 Acquired absence of other genital organ(s); Z92.3 Personal history of irradiation; Z92.23 Personal history of estrogen therapy
CPT/HCPCS: 36415; 80053; 84153; 85025; 99213